=== PATIENT | female | born 1990 | race Caucasian/White ===

== ENCOUNTER → 2016-07-12 | Outpatient (CLI) | payer MEDICAID ==
--- NOTE | 2016-07-12 10:45 | CT ---
CT of the abdomen and pelvis without contrast. HISTORY: Pain TECHNIQUE: Axial CT images were obtained of the abdomen and pelvis without contrast. Coronal and sag ittal reconstructions obtained. FINDINGS: The lung bases are clear, no pleural effusion. Mild to moderate fatty infiltration of the liver. The spleen, adrenal glands, and pancreas appear un remarkable for noncontrast examination. Cholecystectomy. There is no bulky retroperitoneal lymphaden opathy. No abdominal ascites. There are no calcifications noted within the kidneys or along the courses of the ureters bilaterally . The large and small bowel are normal in caliber without evidence of obstruction. There is no bulky p elvic lymphadenopathy. No free fluid. No free air. The urinary bladder appears normal. There is a ti ny supraumbilical and a tiny umbilical fat-containing hernia. Mild symmetric bilateral sacroiliitis. IMPRESSION: 1. Mild to moderate fatty infiltration of the liver. 2. Tiny fat-containing periumbilical and umbilical hernias.
== END ==
LOC: MW.DI 08:25
PROVIDERS: ATTEND Student in an Organized Health Care Education/Training Program
DX: R10.9 Unspecified abdominal pain (principal); K76.0 Fatty (change of) liver, not elsewhere classified; K42.9 Umbilical hernia without obstruction or gangrene
CPT/HCPCS: 74176; 74176-26

== ENCOUNTER 2016-08-06 08:28 | Day surgery (SDC) | payer MEDICAID ==
[~2016-08-06 08:28] MED LIST: Lactated Ringers 1,000 ML IV SCH; Lidocaine 2% 5 ML SDV ONE; Midazolam 1 MG/ML 2 ML SDV ONE; Propofol 200 MG/20 ML SDV ONE; fentaNYL 100 MCG/2 ML SDV ONE
--- NOTE | 2016-08-06 09:01 | PCM.PREANE ---
Preanesthetic Assessment - Anesthesia/Transfusion/Family Hx Anesthesia History: Prior Anesthesia Without Reaction Other Type of Anesthesia Reaction Comment: Denies any known problem in past, hx : motion sickness Family History of Anesthesia Reaction: No Transfusion History: No Prior Transfusion(s) - Review of Systems General: No Symptoms Pulmonary: No Symptoms Cardiovascular: No Symptoms Gastrointestinal: Abdominal pain Neurological: No Symptoms Other: Reports: None - Physical Assessment Height: 1.65 m Weight: 87.09 kg ASA Class: 2 Mental Status: Alert & Oriented x3 Airway Class: Mallampati = 2 Dentition: Reports: Normal Dentition Thyro-Mental Finger Breadths: 3 Mouth Opening Finger Breadths: 2 ROM/Head Extension: Full Lungs: Clear to auscultation, Normal respiratory effort Cardiovascular: Regular Rate, Regular Rhythm - Lab Values: Laboratory Last Values Urine HCG, Qual NEGATIVE (NEGATIVE) 08/06/16 08:31 - Allergies Allergies/Adverse Reactions: Allergies Allergy/AdvReac Type Severity Reaction Status Date / Time Penicillins Allergy Hives Verified 08/01/16 12:35 Sulfa (Sulfonamide Allergy Hives Verified 06/28/15 18:48 Antibiotics) - Blood Blood Available: No - Anesthesia Plan Pre-Op Medication Ordered: None - Acknowledgements Anesthesia Type Planned: MAC Pt an Appropriate Candidate for the Planned Anesthesia: Yes Alternatives and Risks of Anesthesia Discussed w Pt/Guardian: Yes Pt/Guardian Understands and Agrees with Anesthesia Plan: Yes PreAnesthesia Questionnaire HEENT History: Reports: None Cardiovascular History: Reports: None Respiratory History: Reports: Other (see below) Other Respiratory History: asthma as a child Gastrointestinal History: Reports: Other (see below) Other Gastrointestinal History: umbilical hernia Genitourinary History: Reports: None 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 HX of colposcopy - SUBSTANCE USE Smoking Status *Q: Current Every Day Smoker (< 1ppd) Tobacco Use Within Last Twelve Months: Cigarettes Second Hand Smoke Exposure: Yes Days Per Week of Alcohol Use: 0 Number of Drinks Per Day: 0 Total Drinks Per Week: 0 Recreational Drug Use History: No - HOME MEDS Home Medications: Home Meds hydrOXYzine HCl [Atarax] 1 - 2 tab PO ASDIRECTED PRN 08/01/16 [History] - CURRENT (IN HOUSE) MEDS Current Meds: Current Medications Lactated Ringer's (Ringers, Lactated) 1,000 mls @ 125 mls/hr IV ASDIRECTED ZAID Discontinued Medications Fentanyl (Sublimaze) Confirm Administered Dose 100 mcg .ROUTE .STK-MED ONE Stop: 08/06/16 07:19 Lidocaine (Xylocaine-Mpf 2%) Confirm Administered Dose 5 ml .ROUTE .STK-MED ONE Stop: 08/06/16 07:18 Midazolam HCl (Versed 1 Mg/Ml) Confirm Administered Dose 2 mg .ROUTE .STK-MED ONE Stop: 08/06/16 07:19 Propofol (Diprivan 20 Ml) Confirm Administered Dose 400 mg .ROUTE .STK-MED ONE Stop: 08/06/16 07:19
--- NOTE | 2016-08-06 09:59 | PCM.OPNOTE ---
- General Post-Op/Procedure Note Date of Surgery/Procedure: 08/06/16 Operative Procedure(s): egd w bx Findings: see dict [id number] Pre Op Diagnosis: gerd Post-Op Diagnosis: same Anesthesia Technique: Moderate sedation Primary Surgeon: Med Mora Pathology: egd bx Complications: None Condition: Good
--- NOTE | 2016-08-06 10:06 | PCM.POSTAN ---
POST ANESTHESIA ASSESSMENT - MENTAL STATUS Mental Status: alert, oriented - RESPIRATORY Respiratory Status: respiratory rate WNL, airway patent, O2 saturation stable - CARDIOVASCULAR CV Status: pulse rate WNL, blood pressure stable - GASTROINTESTINAL GI Status: no symptoms - POST OP HYDRATION Hydration Status: adequate & stable - OBSERVATIONS Free Text/Narrative:: no anesthesia problems
--- NOTE | 2016-08-06 11:27 | OR ---
SURGEON: Med Mora MD DATE OF PROCEDURE: 08/06/2016 PREOPERATIVE DIAGNOSIS: Acid reflux. POSTOPERATIVE DIAGNOSIS: Acid reflux. PROCEDURE PERFORMED: Esophagogastroduodenoscopy with biopsy. DESCRIPTION OF PROCEDURE: EGD: The patient was taken to the endoscopy room, and with the RN CCU, Diprivan was administered. A well-lubricated EGD scope was gently inserted through the oropharynx, down the esophagus, passing through the gastroesophageal junction, into the stomach. The mucosa was examined upon the passage. Any etiology will be noted. Once in the stomach, we continued to advance to the distal antrum, passed through the pylorus into the second portion of the duodenum. Again, the mucosa was examined for any abnormality and etiology. The scope was then retrieved back to the stomach and then retroflexed to look at the fundus of the stomach. If a biopsy was indicated, we will biopsy the antrum, body, and gastroesophageal junction. The air will be sucked out while the scope is retrieved to reduce the patient's discomfort. The patient tolerated the procedure well. There were no intraoperative complications. Dr. Mora was present through the whole procedure. Prior to surgery, a time-out had been called, the patient identified, procedure identified and antibiotic administered. FINDINGS: 1. The patient is easily sedated with RN CCU and Diprivan. The patient is soundly snoring. 2. The patient's oropharynx and proximal esophagus is free of disease. No stricture, ulceration, inflammation. Distal esophagus at GE junction at 40 with salmon color change consistent with acid reflux. Stomach rugae is normal in appearance, and there is no bile, food particle in the stomach. Antrum is a little bit inflamed, but again no ulcer, no bleeding. Duodenum was grossly normal. The scope was retrieved back to the stomach and retroflexed to look at the fundus of stomach. The patient does not have hiatal hernia or any other etiology. Biopsy done at antrum, body, and GE junction at 40 and sucked out the air while scope pulling out. The patient's salmon color change is pre-moderate consistent with moderate amount of acid reflux. MARY / DEJAH /[id number]
[2016-08-06 12:48] VITALS: BP 111/69
== END 2016-08-06 10:22 | disposition home or self-care (01) ==
LOC: MW.SDS 08:28
PROVIDERS: ATTEND Surgery
PROC: 0DB48ZX Excision of Esophagogastric Junction, Via Natural or Artificial Opening Endoscopic, Diagnostic (ICD-10-PCS; principal; 2016-08-06)
PROC: 0DB68ZX Excision of Stomach, Via Natural or Artificial Opening Endoscopic, Diagnostic (ICD-10-PCS; 2016-08-06)
DX: K29.50 Unspecified chronic gastritis without bleeding (principal); K21.0 Gastro-esophageal reflux disease with esophagitis; F41.9 Anxiety disorder, unspecified; F32.9 Major depressive disorder, single episode, unspecified; F17.210 Nicotine dependence, cigarettes, uncomplicated; E66.9 Obesity, unspecified; Z88.0 Allergy status to penicillin; Z88.2 Allergy status to sulfonamides; Z90.49 Acquired absence of other specified parts of digestive tract; Z98.890 Other specified postprocedural states; Z68.31 Body mass index [BMI] 31.0-31.9, adult
CPT/HCPCS: 43239; 81025; J2250; J3010; J7120; 00740; 88305; 88312; J2704

== ENCOUNTER 2016-09-18 14:36 | Emergency (ER) | payer MEDICAID ==
[2016-09-18] MEDS ORDERED: diphenhydrAMINE 50 MG/ML SDV IM ONE (14:54)
[2016-09-18] MEDS ORDERED: methylPREDNISolone Sodium Succinate 40 MG/1 ML SDV IM ONE (14:55)
--- NOTE | 2016-09-18 15:42 | EDM.PDOC ---
ED HPI GENERAL MEDICAL PROBLEM - General Chief Complaint: Allergic Reaction Stated Complaint: ALLERGIC REACTION TO MEDS Time Seen by Provider: 09/18/16 14:48 Source of Information: Reports: Patient History Limitations: Reports: No Limitations - History of Present Illness INITIAL COMMENTS - FREE TEXT/NARRATIVE: HISTORY AND PHYSICAL: []25-Year-old female presenting with allergic reaction tongue swelling History of Present Illness: [Patient was started yesterday on Lexapro. Noticed that her tongue was swelling at about noon and has gradually worsened] Review of Systems: As per history of present illness and below otherwise all systems reviewed and negative. Past medical history: As per history of present illness and as reviewed below otherwise noncontributory. Surgical history: As per history of present illness and as reviewed below otherwise noncontributory. Social history: No reported history of drug or alcohol abuse. Family history: As per history of present illness and as reviewed below otherwise noncontributory. Physical exam: Alert and oriented female who is able to speak. HEENT: Atraumatic, normocehpalic, pupils reactive, negative for conjunctival pallor or scleral icterus, mucous membranes moist, throat clear, neck supple, nontender, trachea midline. Tongue slightly edematous Lungs: Clear to auscultation, breath sounds equal bilaterally, chest non tender. Heart: S1S2, regular, negative for clicks, rubs, or JVD. Abdomen: Soft, nondistended, nontender. Negative for masses or hepatossplenmegaly. Negative for costovertebral tenderness. Pelvis: Stable nontender. Genitourinary: Deferred. Rectal: Deferred Extremities: Atraumatic, negative for cords or calf pain. Neurovascular unremarkable. Neuro: Awake, alert, oriented. Cranial nerves II through XII unremarkable. Cerebellum unremarkable. Motor and sensory unremarkable throughout. Exam nonfocal. Patient has tolerated procedures well swelling is noted her speech pattern has improved Good experience change noted to auscultation of the chest Diagnostics: [] Therapeutics: [] Solu-Medrol 40mg IM/ Benadryl 50 mg IM Impression: [Allergic reaction] Plan: [Home Benadryl by mouth 50 mg every 4 hours today Zyrtec 10 mg daily for one week Followup with primary care provider If worsening symptoms tonight return for evaluation ] Definitive disposition and diagnosis as appropriate pending reevaluation and review of above. Onset: Today, Sudden Duration: Hour(s):, Getting Worse Location: Reports: Other (tongue) Oral/Mouth Pain Score (Numeric/FACES): 5 - Related Data Allergies Allergy/AdvReac Type Severity Reaction Status Date / Time Penicillins Allergy Hives Verified 08/01/16 12:35 Sulfa (Sulfonamide Allergy Hives Verified 06/28/15 18:48 Antibiotics) Home Meds: Home Meds hydrOXYzine HCl [Atarax] 1 - 2 tab PO ASDIRECTED PRN 08/01/16 [History] Past Medical History - Past Health History Medical/Surgical History: Denies Medical/Surgical History HEENT History: Reports: None Cardiovascular History: Reports: None Respiratory History: Reports: Other (See Below) Other Respiratory History: asthma as a child Gastrointestinal History: Reports: Other (See Below) Other Gastrointestinal History: umbilical hernia Genitourinary History: Reports: None 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: Musculoskeletal History: Reports: None Neurological History: Reports: Migraines Psychiatric History: Reports: Anxiety, Depression Endocrine/Metabolic History: Reports: Obesity/BMI 30+ Hematologic History: Reports: None Immunologic History: Reports: None Oncologic (Cancer) History: Reports: None Dermatologic History: Reports: None - Past Surgical History Head Surgeries/Procedures: Reports: None Female Surgical History: Reports: LEEP, Other (See Below) Social & Family History - Family History Family Medical History: Noncontributory - Tobacco Use Smoking Status *Q: Current Every Day Smoker Years of Tobacco use: 8 Packs/Tins Daily: 1 Used Tobacco, but Quit: No Month Tobacco Last Used: a year ago Second Hand Smoke Exposure: No - Caffeine Use Caffeine Use: Reports: None - Alcohol Use Days Per Week of Alcohol Use: 0 Number of Drinks Per Day: 0 Total Drinks Per Week: 0 - Recreational Drug Use Recreational Drug Use: No Drug Use in Last 12 Months: No ED ROS ALLERGIC REACTION - Review of Systems Review Of Systems: ROS reveals no pertinent complaints other than HPI. ED EXAM GENERAL NO PERIP PULSE - Physical Exam Exam: See Below Course - Vital Signs Last Recorded V/S: Last Vital Signs Temp 36.2 C 09/18/16 14:47 Pulse 84 09/18/16 14:47 Resp 15 09/18/16 14:47 BP 126/78 09/18/16 14:47 Pulse Ox 97 09/18/16 14:47 - Orders/Labs/Meds Meds: Medications Discontinued Medications Generic Name Dose Route Start Last Admin Trade Name Lisbeth PRN Reason Stop Dose Admin Diphenhydramine HCl 50 mg 09/18/16 14:54 09/18/16 15:06 Benadryl IM 09/18/16 14:55 50 mg ONETIME ONE Administration Methylprednisolone Sodium Succinate 40 mg 09/18/16 14:55 09/18/16 15:06 Solu-Medrol IM 09/18/16 14:56 40 mg ONETIME ONE Administration Departure - Departure Time of Disposition: 15:41 Disposition: Home, Self-Care 01 Condition: good Clinical Impression: Allergic reaction caused by a drug Qualifiers: Encounter type: initial encounter Qualified Code(s): T78.40XA - Allergy, unspecified, initial encounter - Discharge Information Additional Instructions: The following information is given to patients seen in the emergency department who are being discharged to home. This information is to outline your options for follow-up care. We provide all patients seen in our emergency department with a follow-up referral. The need for follow-up, as well as the timing and circumstances, are variable depending upon the specifics of your emergency department visit. If you don't have a primary care physician on staff, we will provide you with a referral. We always advise you to contact your personal physician following an emergency department visit to inform them of the circumstance of the visit and for follow-up with them and/or the need for any referrals to a consulting specialist. The emergency department will also refer you to a specialist when appropriate. This referral assures that you have the opportunity for followup care with a specialist. All of these measure are taken in an effort to provide you with optimal care, which includes your followup. Under all circumstances we always encourage you to contact your private physician who remains a resource for coordinating your care. When calling for followup care, please make the office aware that this follow-up is from your recent emergency room visit. If for any reason you are refused follow-up, please contact the [facility] emergency department at and asked to speak to the emergency department charge nurse. Followup with primary care provider Continue with by mouth Benadryl [id number] 50 mg every 4 hours today Zyrtec 10 mg daily x1 week Any worsening of symptoms today return immediately for reevaluation
[2016-09-18 15:49] VITALS: BP 118/70
== END 2016-09-18 15:47 | disposition home or self-care (01) ==
LOC: MW.ED 14:36
DX: T43.225A Adverse effect of selective serotonin reuptake inhibitors, initial encounter (principal); F41.9 Anxiety disorder, unspecified; F32.9 Major depressive disorder, single episode, unspecified; E66.9 Obesity, unspecified; Z98.890 Other specified postprocedural states; F17.210 Nicotine dependence, cigarettes, uncomplicated; Z88.0 Allergy status to penicillin; Z88.2 Allergy status to sulfonamides
CPT/HCPCS: 96372; 99283; J1200; J2920

== ENCOUNTER 2016-09-19 18:47 | Emergency (ER) | payer MEDICAID ==
--- NOTE | 2016-09-19 19:04 | EDM.PDOC ---
<Montserrat Kwan - Last Filed: 09/19/16 21:30> ED HPI GENERAL MEDICAL PROBLEM - General Stated Complaint: PT HAS SORE THROAT Time Seen by Provider: 09/19/16 19:59 Source of Information: Reports: Patient History Limitations: Reports: No Limitations - History of Present Illness INITIAL COMMENTS - FREE TEXT/NARRATIVE: HISTORY AND PHYSICAL: []25-year-old female who presents to the emergency room with worsening of allergic reaction, patient was seen by this provider yesterday for allergic reaction of tongue swelling. History of Present Illness: [Patient was given a prescription for Lexapro and after 1 dose noticed difficulty with swallowing and tongue swelling] Review of Systems: As per history of present illness and below otherwise all systems reviewed and negative. Past medical history: As per history of present illness and as reviewed below otherwise noncontributory. Surgical history: As per history of present illness and as reviewed below otherwise noncontributory. Social history: No reported history of drug or alcohol abuse. Family history: As per history of present illness and as reviewed below otherwise noncontributory. Physical exam: Alert and oriented female who is speaking quite well. No difficulty with breathing HEENT: Atraumatic, normocehpalic, pupils reactive, negative for conjunctival pallor or scleral icterus, mucous membranes moist, throat clear, neck supple, nontender, trachea midline. Tongue does not look to be edematous, phRYNX is erythematous, mild cervical adenopathy Lungs: Clear to auscultation, breath sounds equal bilaterally, chest non tender. Heart: S1S2, regular, negative for clicks, rubs, or JVD. Abdomen: Soft, nondistended, nontender. Negative for masses or hepatossplenmegaly. Negative for costovertebral tenderness. Pelvis: Stable nontender. Genitourinary: Deferred. Rectal: Deferred Extremities: Atraumatic, negative for cords or calf pain. Neurovascular unremarkable. Neuro: Awake, alert, oriented. Cranial nerves II through XII unremarkable. Cerebellum unremarkable. Motor and sensory unremarkable throughout. Exam nonfocal. Discussed case with Dr. Domingo Amos who was kindly agreeable to see this patient/reassurances had been given to the patient. Patient eloped from the emergency room without results of negative strep. And to continue current medications Diagnostics: []Rapid strep test negative Therapeutics: [Prednisolone syrup 30 mL by mouth] Impression: [Mild pharyngitis Recovering from allergic reaction Worried well Plan: [] Definitive disposition and diagnosis as appropriate pending reevaluation and review of above. - Related Data Allergies Allergy/AdvReac Type Severity Reaction Status Date / Time Penicillins Allergy Hives Verified 09/19/16 19:09 Sulfa (Sulfonamide Allergy Hives Verified 09/19/16 19:09 Antibiotics) Home Meds: Home Meds . [No Known Home Meds] 09/19/16 [History] ED ROS GENERAL - Review of Systems Review Of Systems: ROS reveals no pertinent complaints other than HPI. ED EXAM, GENERAL - Physical Exam Exam: See Below (See dictation) Course - Vital Signs Last Recorded V/S: Last Vital Signs Temp 36.6 C 09/19/16 19:07 Pulse 68 09/19/16 19:07 Resp 18 09/19/16 19:07 BP 135/94 H 09/19/16 19:07 Pulse Ox 95 09/19/16 19:07 - Orders/Labs/Meds Meds: Medications Discontinued Medications Generic Name Dose Route Start Last Admin Trade Name Lisbeth PRN Reason Stop Dose Admin Prednisolone 30 mg 09/19/16 20:07 09/19/16 20:14 Orapred 15 Mg/5ml Soln PO 09/19/16 20:08 30 mg ONETIME ONE Administration Departure - Departure Time of Disposition: 21:36 Disposition: Eloped 07 Condition: Good Clinical Impression: Worried well - Discharge Information Referrals: PCP,None [Primary Care Provider] - Forms: ED Department Discharge <Domingo Amos - Last Filed: 09/25/16 07:11> ED HPI GENERAL MEDICAL PROBLEM - General Source of Information: Reports: Patient Past Medical History - Past Health History Medical/Surgical History: Denies Medical/Surgical History HEENT History: Reports: None Cardiovascular History: Reports: None Respiratory History: Reports: Other (See Below) Other Respiratory History: asthma as a child Gastrointestinal History: Reports: Other (See Below) Other Gastrointestinal History: umbilical hernia Genitourinary History: Reports: 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: Musculoskeletal History: Reports: None Neurological History: Reports: Migraines Psychiatric History: Reports: Anxiety, Depression Endocrine/Metabolic History: Reports: Obesity/BMI 30+ Hematologic History: Reports: None Immunologic History: Reports: None Oncologic (Cancer) History: Reports: None Dermatologic History: Reports: None - Past Surgical History Head Surgeries/Procedures: Reports: None Female Surgical History: Reports: LEEP, Other (See Below) Social & Family History - Family History Family Medical History: Noncontributory - Tobacco Use Smoking Status *Q: Current Every Day Smoker Years of Tobacco use: 8 Packs/Tins Daily: 1 Used Tobacco, but Quit: No Month Tobacco Last Used: a year ago Second Hand Smoke Exposure: No - Caffeine Use Caffeine Use: Reports: None - Alcohol Use Days Per Week of Alcohol Use: 0 Number of Drinks Per Day: 0 Total Drinks Per Week: 0 - Recreational Drug Use Recreational Drug Use: No Drug Use in Last 12 Months: No ED ROS GENERAL - Review of Systems Review Of Systems: See Below (History of present illness) ED EXAM, GENERAL - Physical Exam Exam: See Below (History of present illness) Course - Vital Signs Last Recorded V/S: Last Vital Signs Temp 36.6 C 09/19/16 19:07 Pulse 68 09/19/16 19:07 Resp 18 09/19/16 19:07 BP 135/94 H 09/19/16 19:07 Pulse Ox 95 09/19/16 19:07 - Orders/Labs/Meds Meds: Medications Discontinued Medications Generic Name Dose Route Start Last Admin Trade Name Lisbeth PRAshlyn Reason Stop Dose Admin Prednisolone 30 mg 09/19/16 20:07 09/19/16 20:14 Orapred 15 Mg/5ml Soln PO 09/19/16 20:08 30 mg ONETIME ONE Administration
[2016-09-19 19:09] VITALS: BP 135/94
[2016-09-19] MEDS ORDERED: prednisoLONE Soln 15 MG/5 ML UD Cup PO ONE (20:07)
== END 2016-09-19 21:00 | disposition left against medical advice (07) ==
LOC: MW.ED 18:47
DX: J02.9 Acute pharyngitis, unspecified (principal); F32.9 Major depressive disorder, single episode, unspecified; F17.210 Nicotine dependence, cigarettes, uncomplicated; E66.9 Obesity, unspecified; Z68.31 Body mass index [BMI] 31.0-31.9, adult; Z71.1 Person with feared health complaint in whom no diagnosis is made; Z88.0 Allergy status to penicillin; Z88.2 Allergy status to sulfonamides
CPT/HCPCS: 87081; 87880; 99283; A9270; 99282

== ENCOUNTER 2016-11-08 13:49 | Emergency (ER) | payer MEDICAID ==
[2016-11-08 14:28] VITALS: BP 137/92
[2016-11-08] MEDS ORDERED: Ondansetron 4 MG Tab.DIS PO ONE (15:04)
--- NOTE | 2016-11-08 15:09 | EDM.PDOC ---
ED HPI GENERAL MEDICAL PROBLEM - General Chief Complaint: General Stated Complaint: VOMITING Time Seen by Provider: 11/08/16 14:45 Source of Information: Reports: Patient History Limitations: Reports: No Limitations - History of Present Illness INITIAL COMMENTS - FREE TEXT/NARRATIVE: HISTORY AND PHYSICAL: History of present illness: [Patient comes to the emergency room complaining of cough, head congestion for episodes of vomiting and some loose stools today. She is blowing clear nasal discharge out of her nose. The apartments next door to hers has been having construction completed for the past week. Today is the last day of work on his apartment and patient is noticing a strong smell of chemicals. She is worried that being exposed may be causing her symptoms. Her 2 young children are also having dry coughs and runny nose. Mom verified with apartment complex that polyurethane is being used on the floors. Patient has had no fever or chills. No sore throat or earaches. No chest pain shortness of breath or difficulty breathing. Continues to complain of nausea Cough is nonproductive for sputum. No abdominal pain associated with the vomiting. No blood in her emesis or stools. She is urinating well. Has no other complaints or concerns.] Review of systems: As per history of present illness and below otherwise all systems reviewed and negative. Past medical history: As per history of present illness and as reviewed below otherwise noncontributory. Surgical history: As per history of present illness and as reviewed below otherwise noncontributory. Social history: No reported history of drug or alcohol abuse. Family history: As per history of present illness and as reviewed below otherwise noncontributory. Physical exam: HEENT: Atraumatic, normocephalic. TMs are pearly chinchilla and without erythema or effusion. Oral mucous membranes are pink and moist tonsillar swelling erythema or exudate. Neck is supple and without lymphadenopathy. Lungs: Clear to auscultation, breath sounds equal bilaterally. No wheezing, crackles or rales. Heart: S1S2, regular rate and rhythm., Abdomen: Bowel sounds are normoactive throughout. Abdomen is Soft, nondistended , nontender. Negative for masses guarding or rebound. Negative for costovertebral tenderness. Pelvis: Stable nontender. Genitourinary: Deferred. Rectal: Deferred. Extremities: Atraumatic, negative for cords or calf pain. No cyanosis or edema to feet or lower legs. Neurovascular unremarkable. Neuro: Awake, alert, oriented. Motor and sensory unremarkable throughout. Exam nonfocal. Impression: [Nausea and vomiting] Plan: [Reviewed with patient that her symptoms are likely viral in nature. Recommend push fluids, avoid spicy greasy foods until feeling improved. She is given Rx written for Zofran ODT 4 mg #10 sig one by mouth every 6-8 hours as needed for nausea 0 refills. Recommend she follow-up with her PCP early next week. Return to ER as needed as discussed. Patient states that she and her children will go stay with her mom fatmata until construction was completed in the apartment next door.] Definitive disposition and diagnosis as appropriate pending reevaluation and review of above. - Related Data Allergies Allergy/AdvReac Type Severity Reaction Status Date / Time Penicillins Allergy Hives Verified 11/08/16 14:25 Sulfa (Sulfonamide Allergy Hives Verified 11/08/16 14:25 Antibiotics) Home Meds: Home Meds . [No Known Home Meds] 09/19/16 [History] Past Medical History - Past Health History Medical/Surgical History: Denies Medical/Surgical History HEENT History: Reports: None Cardiovascular History: Reports: None Respiratory History: Reports: Other (See Below) Other Respiratory History: asthma as a child Gastrointestinal History: Reports: Other (See Below) Other Gastrointestinal History: umbilical hernia Genitourinary History: Reports: None CLINICIAN ONCOLOGY History: Reports: Musculoskeletal History: Reports: None Neurological History: Reports: Migraines Psychiatric History: Reports: Anxiety, Depression Endocrine/Metabolic History: Reports: Obesity/BMI 30+ Hematologic History: Reports: None Immunologic History: Reports: None Oncologic (Cancer) History: Reports: None Dermatologic History: Reports: None - Infectious Disease History Infectious Disease History: Reports: Chicken Pox - Past Surgical History Head Surgeries/Procedures: Reports: None Female Surgical History: Reports: LEEP, Other (See Below) Social & Family History - Family History Family Medical History: Noncontributory - Tobacco Use Smoking Status *Q: Current Every Day Smoker Years of Tobacco use: 5 Packs/Tins Daily: 1 Used Tobacco, but Quit: No Month Tobacco Last Used: a year ago Second Hand Smoke Exposure: No - Caffeine Use Caffeine Use: Reports: None - Alcohol Use Days Per Week of Alcohol Use: 0 Number of Drinks Per Day: 0 Total Drinks Per Week: 0 - Recreational Drug Use Recreational Drug Use: No Drug Use in Last 12 Months: No ED ROS GENERAL - Review of Systems Review Of Systems: ROS reveals no pertinent complaints other than HPI. ED EXAM, GENERAL - Physical Exam Exam: See Below Course - Vital Signs Last Recorded V/S: Last Vital Signs Temp 97 F 11/08/16 13:49 Pulse 80 11/08/16 13:49 Resp 18 11/08/16 13:49 BP 137/92 H 11/08/16 13:49 Pulse Ox 97 11/08/16 13:49 - Orders/Labs/Meds Meds: Medications Discontinued Medications Generic Name Dose Route Start Last Admin Trade Name Freq PRN Reason Stop Dose Admin Ondansetron HCl 4 mg 11/08/16 15:04 11/08/16 17:28 Zofran Odt PO 11/08/16 15:05 Not Given ONETIME ONE Departure - Departure Time of Disposition: 15:10 Disposition: Home, Self-Care 01 Condition: Good Clinical Impression: Nausea & vomiting Qualifiers: Vomiting type: unspecified Vomiting Intractability: non-intractable Qualified Code(s): R11.2 - Nausea with vomiting, unspecified - Discharge Information Instructions: Nausea and Vomiting, Adult Referrals: Darrick Gaviria MD [Primary Care Provider] - Forms: ED Department Discharge Additional Instructions: The following information is given to patients seen in the emergency department who are being discharged to home. This information is to outline your options for follow-up care. We provide all patients seen in our emergency department with a follow-up referral. The need for follow-up, as well as the timing and circumstances, are variable depending upon the specifics of your emergency department visit. If you don't have a primary care physician on staff, we will provide you with a referral. We always advise you to contact your personal physician following an emergency department visit to inform them of the circumstance of the visit and for follow-up with them and/or the need for any referrals to a consulting specialist. The emergency department will also refer you to a specialist when appropriate. This referral assures that you have the opportunity for follow-up care with a specialist. All of these measure are taken in an effort to provide you with optimal care, which includes your follow-up. Under all circumstances we always encourage you to contact your private physician who remains a resource for coordinating your care. When calling for follow-up care, please make the office aware that this follow-up is from your recent emergency room visit. If for any reason you are refused follow-up, please contact the [facility] emergency department at and asked to speak to the emergency department charge nurse. [facility] [address] [place] [id number] Follow-up with your primary care provider at the clinic listed above in 48-72 hours. Clear liquids until feeling free from nausea and vomiting. Then gradually increase your diet. Return to ER as needed as discussed.
== END 2016-11-08 15:21 | disposition home or self-care (01) ==
LOC: MW.ED 13:49
DX: R11.2 Nausea with vomiting, unspecified (principal); E66.9 Obesity, unspecified; Z88.0 Allergy status to penicillin; Z88.2 Allergy status to sulfonamides
CPT/HCPCS: 99282; 99283

== ENCOUNTER 2017-05-14 19:17 | Emergency (ER) | payer MEDICAID ==
--- NOTE | 2017-05-14 19:31 | EDM.PDOC ---
ED HPI GENERAL MEDICAL PROBLEM - General Chief Complaint: Respiratory Problem Stated Complaint: LOWER BACK PAIN/UNABLE TO EAT Time Seen by Provider: 05/14/17 19:29 Source of Information: Reports: Patient History Limitations: Reports: No Limitations - History of Present Illness INITIAL COMMENTS - FREE TEXT/NARRATIVE: HISTORY AND PHYSICAL: []26-year-old female presenting with low back pain also sick coughing and vomiting for several days History of Present Illness: []Patient says she's been ill for the last 4 days with coughing chills flulike symptoms Review of Systems: As per history of present illness and below otherwise all systems reviewed and negative. Past medical history: As per history of present illness and as reviewed below otherwise noncontributory. Surgical history: As per history of present illness and as reviewed below otherwise noncontributory. Social history: No reported history of drug or alcohol abuse. Family history: As per history of present illness and as reviewed below otherwise noncontributory. Physical exam: Alert and oriented female who does not look acutely ill answering questions in full sentences without any shortness of breath HEENT: Atraumatic, normocehpalic, pupils reactive, negative for conjunctival pallor or scleral icterus, mucous membranes moist, throat red, neck supple, nontender, trachea midline. Tympanic membranes are dull, no cervical adenopathy palpable Lungs: Clear to auscultation, breath sounds equal bilaterally, chest non tender. Shallow breath sounds Heart: S1S2, regular, negative for clicks, rubs, or JVD. Abdomen: Soft, nondistended, nontender. Negative for masses or hepatossplenmegaly. Positive for costovertebral tenderness. Pelvis: Stable nontender. Genitourinary: Deferred. Patient is voiding without any difficulty Rectal: Deferred Extremities: Atraumatic, negative for cords or calf pain. Neurovascular unremarkable. Neuro: Awake, alert, oriented. Cranial nerves II through XII unremarkable. Cerebellum unremarkable. Motor and sensory unremarkable throughout. Exam nonfocal. Diagnostics: [Rapid strep influenza UA] all are negative for any infection Therapeutics: [] Impression: [Cystitis] Plan: []Ciprofloxacin 500 twice a day Sips of fluid every 20 minutes to keep hydrated while awake Zofran for nausea prn Definitive disposition and diagnosis as appropriate pending reevaluation and review of above. Onset: Sudden Duration: Day(s): (4), Getting Worse Location: Reports: Head, Back lower back Pain Score (Numeric/FACES): 6 - Related Data Allergies Allergy/AdvReac Type Severity Reaction Status Date / Time Penicillins Allergy Hives Verified 05/14/17 19:20 Sulfa (Sulfonamide Allergy Hives Verified 05/14/17 19:20 Antibiotics) Home Meds: Home Meds Ciprofloxacin [Cipro XR] 500 mg PO BID #10 tab.er 05/14/17 [Rx] Ondansetron [Zofran ODT] 4 mg PO Q6H PRN #12 tab.dis 05/14/17 [Rx] Past Medical History - Past Health History Medical/Surgical History: Denies Medical/Surgical History HEENT History: Reports: None Cardiovascular History: Reports: None Respiratory History: Reports: Other (See Below) Other Respiratory History: asthma as a child Gastrointestinal History: Reports: Other (See Below) Other Gastrointestinal History: Umbilical hernia Genitourinary History: Reports: None [employer] C[employer] WORKER History: Reports: Musculoskeletal History: Reports: None Neurological History: Reports: Migraines Psychiatric History: Reports: Anxiety, Depression Endocrine/Metabolic History: Reports: Obesity/BMI 30+ Hematologic History: Reports: None Immunologic History: Reports: None Oncologic (Cancer) History: Reports: None Dermatologic History: Reports: None - Infectious Disease History Infectious Disease History: Reports: None - Past Surgical History Head Surgeries/Procedures: Reports: None GI Surgical History: Reports: Appendectomy, Cholecystectomy Female Surgical History: Reports: LEEP Social & Family History - Family History Family Medical History: Noncontributory - Tobacco Use Smoking Status *Q: Current Every Day Smoker Years of Tobacco use: 10 Packs/Tins Daily: 1 Used Tobacco, but Quit: No Month Tobacco Last Used: a year ago Second Hand Smoke Exposure: No - Caffeine Use Caffeine Use: Reports: None - Alcohol Use Days Per Week of Alcohol Use: 0 Number of Drinks Per Day: 0 Total Drinks Per Week: 0 - Recreational Drug Use Recreational Drug Use: No Drug Use in Last 12 Months: No ED ROS GENERAL - Review of Systems Review Of Systems: ROS reveals no pertinent complaints other than HPI. ED EXAM, GENERAL - Physical Exam Exam: See Below (Dictation) Course - Vital Signs Last Recorded V/S: Last Vital Signs Temp 36.1 C 05/14/17 19:20 Pulse 90 05/14/17 19:20 Resp 18 05/14/17 19:20 BP 174/93 H 05/14/17 19:20 Pulse Ox 97 05/14/17 19:20 - Orders/Labs/Meds Orders: Active Orders 24 hr Category Date Time Status CULTURE STREP A CONFIRMATION [RM] Stat Lab 05/14/17 19:25 Results STREP SCRN A RAPID W CULT CONF [] Stat Lab 05/14/17 19:25 Results Labs: Laboratory Tests 05/14/17 Range/Units 19:28 Urine Color YELLOW Urine Appearance CLEAR Urine pH 6.0 (5.0-8.0) Ur Specific [place] 1.025 (1.001-1.035) Urine Protein NEGATIVE (NEGATIVE) mg/dL Urine Glucose (UA) NEGATIVE (NEGATIVE) mg/dL Urine Ketones NEGATIVE (NEGATIVE) mg/dL Urine Occult Blood SMALL H (NEGATIVE) Urine Nitrite NEGATIVE (NEGATIVE) Urine Bilirubin NEGATIVE (NEGATIVE) Urine Urobilinogen 0.2 (<2.0) EU/dL Ur Leukocyte Esterase NEGATIVE (NEGATIVE) Urine RBC 0-1 (0-2/HPF) Urine WBC 1-3 (0-5/HPF) Ur Epithelial Cells FEW (NONE-FEW) Urine Bacteria RARE (NEGATIVE) Urine Mucus HEAVY (NONE-MOD) Departure - Departure Time of Disposition: 20:35 Disposition: Home, Self-Care 01 Condition: Good Clinical Impression: Cystitis - Discharge Information Prescriptions: Ciprofloxacin [Cipro XR] 500 mg PO BID #10 tab.er Ondansetron [Zofran ODT] 4 mg PO Q6H PRN #12 tab.dis PRN Reason: Nausea Referrals: Darrick Gaviria MD [Primary Care Provider] - Forms: ED Department Discharge Additional Instructions: The following information is given to patients seen in the emergency department who are being discharged to home. This information is to outline your options for follow-up care. We provide all patients seen in our emergency department with a follow-up referral. The need for follow-up, as well as the timing and circumstances, are variable depending upon the specifics of your emergency department visit. If you don't have a primary care physician on staff, we will provide you with a referral. We always advise you to contact your personal physician following an emergency department visit to inform them of the circumstance of the visit and for follow-up with them and/or the need for any referrals to a consulting specialist. The emergency department will also refer you to a specialist when appropriate. This referral assures that you have the opportunity for followup care with a specialist. All of these measure are taken in an effort to provide you with optimal care, which includes your followup. Under all circumstances we always encourage you to contact your private physician who remains a resource for coordinating your care. When calling for followup care, please make the office aware that this follow-up is from your recent emergency room visit. If for any reason you are refused follow-up, please contact the [facility] emergency department at and asked to speak to the emergency department charge nurse. You had exquisite tenderness in the kidney area on examination a prescription of ciprofloxacin twice daily 5 days For your nausea Zofran has been ordered 4 mg ODT and sent to your pharmacy - My Orders Last 24 Hours: My Active Orders 05/14/17 19:25 CULTURE STREP A CONFIRMATION [RM] Stat STREP SCRN A RAPID W CULT CONF [RM] Stat - Assessment/Plan Last 24 Hours: My Active Orders 05/14/17 19:25 CULTURE STREP A CONFIRMATION [RM] Stat STREP SCRN A RAPID W CULT CONF [RM] Stat
[2017-05-14 20:59] VITALS: BP 122/81
== END 2017-05-14 20:51 | disposition home or self-care (01) ==
LOC: MW.ED 19:17
DX: N30.90 Cystitis, unspecified without hematuria (principal); F17.210 Nicotine dependence, cigarettes, uncomplicated; Z88.0 Allergy status to penicillin; Z88.2 Allergy status to sulfonamides
CPT/HCPCS: 81001; 87081; 87804; 87880; 99283

== ENCOUNTER 2017-08-29 08:48 | Day surgery (SDC) | payer MEDICAID ==
[~2017-08-29 08:48] MED LIST changes: +Clindamycin Phosphate in D5W 50 ML ONE; +Clindamycin Phosphate in D5W 600 MG in Premix Bag 50 BAG IV ONE; +Ondansetron 4 MG/2 ML SDV ONE; -fentaNYL 100 MCG/2 ML SDV ONE; +fentaNYL 250 MCG/5 ML SDV ONE
[2017-08-29] MEDS ORDERED: Octyl 2-Cyanoacrylate 1 Tube ONE (09:24)
[2017-08-29] MEDS ORDERED: Bupivacaine 25%/EPINEPHrine/PF 30 ML ONE (09:24)
--- NOTE | 2017-08-29 09:24 | PCM.PREANE ---
Preanesthetic Assessment - Anesthesia/Transfusion/Family Hx Anesthesia History: Prior Anesthesia Reaction Type of Anesthesia Reaction: Excessive Nausea/Vomiting Other Type of Anesthesia Reaction Comment: Denies any known problem in past, hx : motion sickness Family History of Anesthesia Reaction: No Transfusion History: No Prior Transfusion(s) - Review of Systems General: No Symptoms Pulmonary: No Symptoms Cardiovascular: No Symptoms Gastrointestinal: No Symptoms Neurological: No Symptoms Other: Reports: None - Physical Assessment NPO Status Date: 08/28/17 Height: 1.65 m Weight: 88.451 kg ASA Class: 2 Mental Status: Alert & Oriented x3 Airway Class: Mallampati = 1 Dentition: Reports: Normal Dentition ROM/Head Extension: Full Lungs: Clear to Auscultation, Normal Respiratory Effort Cardiovascular: Regular Rate, Regular Rhythm - Lab Values: Laboratory Last Values Urine HCG, Qual NEGATIVE (NEGATIVE) 08/29/17 08:50 - Allergies Allergies/Adverse Reactions: Allergies Allergy/AdvReac Type Severity Reaction Status Date / Time escitalopram [From Lexapro] Allergy Anaphylactic Verified 08/25/17 14:29 Shock Penicillins Allergy Hives Verified 08/25/17 14:29 Sulfa (Sulfonamide Allergy Hives Verified 08/25/17 14:29 Antibiotics) - Acknowledgements Anesthesia Type Planned: General Anesthesia (PMH: umbilical incisional hernia s /p lap bello. smoker, asthma (inactive), migraine, ) Pt an Appropriate Candidate for the Planned Anesthesia: Yes Alternatives and Risks of Anesthesia Discussed w Pt/Guardian: Yes Pt/Guardian Understands and Agrees with Anesthesia Plan: Yes Additional Comments: PMH: umbilical incisional hernia s/p lap bello, smoker, asthma(inactive), migraine PLAN: GA-LMA or GET if surgeon prefers. PreAnesthesia Questionnaire - Past Health History Medical/Surgical History: Denies Medical/Surgical History HEENT History: Reports: None Cardiovascular History: Reports: None Respiratory History: Reports: Asthma, Other (See Below) Other Respiratory History: asthma as a child Gastrointestinal History: Reports: GERD Genitourinary History: Reports: Other (See Below) Other Genitourinary History: hx kidney failure in the past due to taking alcohol and pills "suicide attempt" [employer] History: Reports: Musculoskeletal History: Reports: None Neurological History: Reports: Migraines Psychiatric History: Reports: Anxiety, Depression, Suicide Attempt Endocrine/Metabolic History: Reports: Obesity/BMI 30+ Hematologic History: Reports: None Immunologic History: Reports: None Oncologic (Cancer) History: Reports: None Dermatologic History: Reports: None - Infectious Disease History Infectious Disease History: Reports: None - Past Surgical History Head Surgeries/Procedures: Reports: None GI Surgical History: Reports: Appendectomy, Cholecystectomy, EGD Female Surgical History: Reports: LEEP Other Female Surgeries/Procedures: 2014 and Feb 2016. HX of colposcopy - SUBSTANCE USE Smoking Status *Q: Current Every Day Smoker Tobacco Use Within Last Twelve Months: Cigarettes Second Hand Smoke Exposure: No Days Per Week of Alcohol Use: 0 Number of Drinks Per Day: 0 Total Drinks Per Week: 0 Recreational Drug Use History: No - HOME MEDS Home Medications: Home Meds . [No Known Home Meds] 08/25/17 [History] - CURRENT (IN HOUSE) MEDS Current Meds: Current Medications Lactated Ringer's (Ringers, Lactated) 1,000 mls @ 125 mls/hr IV ASDIRECTED ZAID Discontinued Medications Fentanyl (Sublimaze) Confirm Administered Dose 250 mcg .ROUTE .STK-MED ONE Stop: 08/29/17 08:46 Clindamycin Phosphate 600 mg/ (Premix) 50 mls @ 100 mls/hr IV ONETIME ONE Stop: 08/29/17 05:29 Clindamycin Phosphate (Cleocin In D5w) Confirm Administered Dose 50 mls @ as directed .ROUTE .STK-MED ONE Stop: 08/29/17 08:09 Lidocaine (Xylocaine-Mpf 2%) Confirm Administered Dose 5 ml .ROUTE .STK-MED ONE Stop: 08/29/17 08:46 Midazolam HCl (Versed 1 Mg/Ml) Confirm Administered Dose 2 mg .ROUTE .STK-MED ONE Stop: 08/29/17 08:46 Ondansetron HCl (Zofran) Confirm Administered Dose 4 mg .ROUTE .STK-MED ONE Stop: 08/29/17 08:46 Propofol (Diprivan 20 Ml) Confirm Administered Dose 200 mg .ROUTE .STK-MED ONE Stop: 08/29/17 08:46
[2017-08-29] MEDS ORDERED: Dexamethasone 4 MG/ML 5 ML MDV ONE (09:46)
[2017-08-29] MEDS ORDERED: diphenhydrAMINE 50 MG/ML SDV ONE (09:46)
[2017-08-29] MEDS ORDERED: fentaNYL 100 MCG/2 ML SDV IVPUSH PRN (10:16)
--- NOTE | 2017-08-29 10:32 | PCM.OPNOTE ---
- General Post-Op/Procedure Note Date of Surgery/Procedure: 08/29/17 Operative Procedure(s): incisional hernia repair Findings: 8 mm fascia defect, repair primary, no mesh used; [id number] Pre Op Diagnosis: umb hernia Post-Op Diagnosis: Same Anesthesia Technique: Moderate Sedation Primary Surgeon: Med Mora Complications: None Condition: Good
--- NOTE | 2017-08-29 11:14 | PCM.POSTAN ---
POST ANESTHESIA ASSESSMENT - MENTAL STATUS Mental Status: Alert, Oriented - RESPIRATORY Respiratory Status: Respiratory Rate WNL, Airway Patent, O2 Saturation Stable - CARDIOVASCULAR CV Status: Pulse Rate WNL, Blood Pressure Stable - GASTROINTESTINAL GI Status: No Symptoms - POST OP HYDRATION Hydration Status: Adequate & Stable
[2017-08-29] MEDS ORDERED: Acetaminophen 1,000 MG in Premix Bag 1 BAG IV ONE (11:56)
--- NOTE | 2017-08-29 11:57 | PCM48HPAN ---
Post Anesthesia Note - EVALUATION WITHIN 48HRS OF ANESTHETIC Vital Signs in Normal Range: Yes Patient Participated in Evaluation: Yes Respiratory Function Stable: Yes Airway Patent: Yes Cardiovascular Function Stable: Yes Hydration Status Stable: Yes Pain Control Satisfactory: Yes Nausea and Vomiting Control Satisfactory: Yes Mental Status Recovered: Yes Resp Rate: 15
[2017-08-29 13:25] VITALS: BP 116/72
--- NOTE | 2017-08-29 13:32 | OR ---
SURGEON: Med Mora MD DATE OF PROCEDURE: 08/29/2017 PREOPERATIVE DIAGNOSIS: Umbilical hernia. POSTOPERATIVE DIAGNOSIS: Umbilical hernia. PROCEDURE PERFORMED: Umbilical hernia repair, no mesh used. COMPLICATIONS: None. FINDINGS: A very small fascial defect above the size of 8 mm, repair primary, no mesh used. PROCEDURE IN DETAIL: The patient was brought to the operating room and placed in the supine position and upon the induction of general endotracheal anesthesia, the patient's abdomen was prepped and draped in sterile fashion. After assessment of appropriate landmarks, a surgical incision was made periumbilically which was then carefully dissected with blunt and sharp dissection surrounding the umbilical stalk. Hernia was entered and the fascial defect was noted, and the excess hernia sac was amputated. The facial edge was noted to be intact and the fascia was then grasped up with Allis clamps and then using 2-0 Ethibond, simple stitches were placed. After repair was finished and exploring the neighborhood, I failed to find any more hernia defect. This was followed with extensive irrigation and good hemostasis was achieved by using electrocautery. The umbilicus was then stitched down to recreate the umbilicus, and the skin was closed with 3-0 Vicryl subcutaneously followed with Dermabond approximating the skin. The patient was then awakened and extubated and transferred to the recovery room in good stable condition. Dr. Mora was present through the whole procedure. At the conclusion of the surgery, before closing the abdominal wound, instrument count and sponge count were done and were correct. Just before surgery, a timeout was called. The patient was identified and procedure identified and procedure started. MARY / DEJAH /[id number]
== END 2017-08-29 13:15 | disposition home or self-care (01) ==
LOC: MW.SDS 08:48
PROVIDERS: ATTEND Surgery
DX: K42.9 Umbilical hernia without obstruction or gangrene (principal); K21.9 Gastro-esophageal reflux disease without esophagitis; G43.909 Migraine, unspecified, not intractable, without status migrainosus; L73.8 Other specified follicular disorders; J45.909 Unspecified asthma, uncomplicated; F41.9 Anxiety disorder, unspecified; F17.210 Nicotine dependence, cigarettes, uncomplicated; Z88.0 Allergy status to penicillin; Z88.2 Allergy status to sulfonamides; Z88.8 Allergy status to other drugs, medicaments and biological substances; Z90.49 Acquired absence of other specified parts of digestive tract; Z98.890 Other specified postprocedural states
CPT/HCPCS: 49585; 81025; A9270; J1100; J1200; J2250; J2405; J3010; J7120; J2704

== ENCOUNTER 2017-08-31 13:08 | Emergency (ER) | payer MEDICAID ==
--- NOTE | 2017-08-31 13:33 | EDM.PDOC ---
ED HPI GENERAL MEDICAL PROBLEM - General Chief Complaint: Abdominal Pain Stated Complaint: PT IS HAVING SHARP PAIN Time Seen by Provider: 08/31/17 13:17 - History of Present Illness INITIAL COMMENTS - FREE TEXT/NARRATIVE: HISTORY AND PHYSICAL: History of present illness: Patient is a 26-year-old female who is status post umbilical hernia repair on Friday who presents with concern of burning discomfort in her umbilical area and intermittent sharp pain. No fever chills nausea vomiting or other complaints. Review of systems: As per history of present illness and below otherwise all systems reviewed and negative. Past medical history: As per history of present illness and as reviewed below otherwise noncontributory. Surgical history: As per history of present illness and as reviewed below otherwise noncontributory. Social history: No reported history of drug or alcohol abuse. Family history: As per history of present illness and as reviewed below otherwise noncontributory. Physical exam: HEENT: Atraumatic, normocephalic, pupils reactive, negative for conjunctival pallor or scleral icterus, mucous membranes moist, throat clear, neck supple, nontender, trachea midline. Lungs: Clear to auscultation, breath sounds equal bilaterally, chest nontender. Heart: S1S2, regular, negative for clicks, rubs, or JVD. Abdomen: Wound appears well with no discharge significant erythema or evidence of infection. Pelvis: Stable nontender. Genitourinary: Deferred. Rectal: Deferred. Extremities: Atraumatic, negative for cords or calf pain. Neurovascular unremarkable. Neuro: Awake, alert, oriented. Cranial nerves II through XII unremarkable. Cerebellum unremarkable. Motor and sensory unremarkable throughout. Exam nonfocal. Diagnostics: CBC CMP acute abdominal series Therapeutics: None Impression: 1 postoperative pain #2 today status post umbilical herniorrhaphy Definitive disposition and diagnosis as appropriate pending reevaluation and review of above. - Related Data Allergies Allergy/AdvReac Type Severity Reaction Status Date / Time escitalopram [From Lexapro] Allergy Anaphylactic Verified 08/31/17 13:26 Shock Penicillins Allergy Hives Verified 08/31/17 13:26 Sulfa (Sulfonamide Allergy Hives Verified 08/31/17 13:26 Antibiotics) Home Meds: Home Meds oxyCODONE HCl/Acetaminophen [Oxycodone-Acetaminophen 5-325] 1 each PO Q6HR 05/20 /18 [History] Past Medical History - Past Health History Medical/Surgical History: Denies Medical/Surgical History HEENT History: Reports: None Cardiovascular History: Reports: None Respiratory History: Reports: Asthma, Other (See Below) Other Respiratory History: asthma as a child Gastrointestinal History: Reports: GERD Genitourinary History: Reports: Other (See Below) Other Genitourinary History: hx kidney failure in the past due to taking alcohol and pills "suicide attempt" 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: Musculoskeletal History: Reports: None Neurological History: Reports: Migraines Psychiatric History: Reports: Anxiety, Depression, Suicide Attempt Endocrine/Metabolic History: Reports: Obesity/BMI 30+ Hematologic History: Reports: None Immunologic History: Reports: None Oncologic (Cancer) History: Reports: None Dermatologic History: Reports: None - Infectious Disease History Infectious Disease History: Reports: None - Past Surgical History Head Surgeries/Procedures: Reports: None GI Surgical History: Reports: Appendectomy, Cholecystectomy, EGD Female Surgical History: Reports: LEEP Other Female Surgeries/Procedures: 2014 and Feb 2016. HX of colposcopy Social & Family History - Family History Family Medical History: Noncontributory - Caffeine Use Caffeine Use: Reports: None ED ROS GENERAL - Review of Systems Review Of Systems: ROS reveals no pertinent complaints other than HPI. ED EXAM, GENERAL - Physical Exam Exam: See Below (See dictation) Course - Vital Signs Last Recorded V/S: Last Vital Signs Temp 36.3 C 08/31/17 13:27 Pulse 75 08/31/17 13:27 Resp 16 08/31/17 13:27 BP 126/82 08/31/17 13:27 Pulse Ox 96 08/31/17 13:27 - Orders/Labs/Meds Orders: Active Orders 24 hr Category Date Time Status Abdomen Series w Chest 1V [CR] Stat Exams 08/31/17 13:24 Taken Labs: Laboratory Tests 08/31/17 08/31/17 Range/Units 13:28 13:28 WBC 8.78 (4.0-11.0) K/uL RBC 4.60 (4.30-5.90) M/uL Hgb 14.6 (12.0-16.0) g/dL Hct 44.0 (36.0-46.0) % MCV 95.7 (80.0-98.0) fL MCH 31.7 (27.0-32.0) pg MCHC 33.2 (31.0-37.0) g/dL RDW Std Deviation 47.3 (28.0-62.0) fl RDW Coeff of Jarred 14 (11.0-15.0) % Plt Count 253 (150-400) K/uL MPV 9.50 (7.40-12.00) fL Neut % (Auto) 60.1 (48.0-80.0) % Lymph % (Auto) 31.4 (16.0-40.0) % Fleming % (Auto) 6.9 (0.0-15.0) % Eos % (Auto) 1.0 (0.0-7.0) % Baso % (Auto) 0.6 (0.0-1.5) % Neut # (Auto) 5.3 (1.4-5.7) K/uL Lymph # (Auto) 2.8 H (0.6-2.4) K/uL Fleming # (Auto) 0.6 (0.0-0.8) K/uL Eos # (Auto) 0.1 (0.0-0.7) K/uL Baso # (Auto) 0.1 (0.0-0.1) K/uL Nucleated RBC % 0.0 /100WBC Nucleated RBCs # 0 K/uL Sodium 137 (136-145) mmol/L Potassium 3.6 (3.5-5.1) mmol/L Chloride 103 (98-107) mmol/L Carbon Dioxide 28.3 (21.0-32.0) mmol/L BUN 9 (7.0-18.0) mg/dL Creatinine 0.8 (0.6-1.0) mg/dL Est Cr Clr Drug Dosing 94.21 mL/min Estimated GFR (MDRD) > 60.0 ml/min Glucose 105 (74-106) mg/dL Calcium 8.7 (8.5-10.1) mg/dL Total Bilirubin 0.3 (0.2-1.0) mg/dL AST 56 H (15-37) IU/L ALT 72 H (14-63) IU/L Alkaline Phosphatase 82 (46-116) U/L Total Protein 6.9 (6.4-8.2) g/dL Albumin 3.5 (3.4-5.0) g/dL Globulin 3.4 (2.0-3.5) g/dL Albumin/Globulin Ratio 1.0 L (1.3-2.8) Departure - Departure Time of Disposition: 14:18 Disposition: Home, Self-Care 01 Condition: Good Clinical Impression: Postoperative pain - Discharge Information Referrals: PCP,None [Primary Care Provider] - Forms: ED Department Discharge Additional Instructions: The following information is given to patients seen in the emergency department who are being discharged to home. This information is to outline your options for follow-up care. We provide all patients seen in our emergency department with a follow-up referral. The need for follow-up, as well as the timing and circumstances, are variable depending upon the specifics of your emergency department visit. If you don't have a primary care physician on staff, we will provide you with a referral. We always advise you to contact your personal physician following an emergency department visit to inform them of the circumstance of the visit and for follow-up with them and/or the need for any referrals to a consulting specialist. The emergency department will also refer you to a specialist when appropriate. This referral assures that you have the opportunity for followup care with a specialist. All of these measure are taken in an effort to provide you with optimal care, which includes your followup. Under all circumstances we always encourage you to contact your private physician who remains a resource for coordinating your care. When calling for followup care, please make the office aware that this follow-up is from your recent emergency room visit. If for any reason you are refused follow-up, please contact the [facility] emergency department at and asked to speak to the emergency department charge nurse. Follow-up Gen. surgery as discussed continue current medications return as needed as discussed
[2017-08-31 13:59] LABS: CHLORIDE,CL 103 mmol/L (98-107); SODIUM,NA 137 mmol/L (136-145)
[2017-08-31 14:38] VITALS: BP 131/86
--- NOTE | 2017-09-01 14:34 | CR ---
EXAM DATE: 08/31/17 PATIENT'S AGE: 26 Patient: HUDSON ZULETA Facility: [place], [place] Site . Site : 1990 Study: XRay Abdomen [id number]/20/2018 2:10:05 PM Ordering Physician: David Lane Final Report: INDICATION: abd pain/ post op 2 days umbilical hernia repair TECHNIQUE: PA chest, upright abdomen and 2 supine abdominal films submitted. COMPARISON: None. FINDINGS: Nonspecific bowel gas pattern with scattered gas throughout normal caliber GI tract. No evidence for bowel obstruction or free air. Heart size and pulmonary vasculature are normal. The lungs are clear. Surgical clips projected over the gallbladder fossa. There is another clip projected over the right lower quadrant. IMPRESSION: Normal bowel gas pattern. No evidence for bowel obstruction or free air. Dictated by Ruperto Longo MD @ 08/31/2017 2:45:40 PM Dictated by: Ruperto Longo MD @ 08/31/2017 14:45:48 (Electronic Signature) Report Signed by Proxy. [facility] HOSPITALDenise
== END 2017-08-31 14:35 | disposition home or self-care (01) ==
LOC: MW.ED 13:08
DX: G89.18 Other acute postprocedural pain (principal); Z98.890 Other specified postprocedural states; Z88.0 Allergy status to penicillin; Z88.2 Allergy status to sulfonamides; Z88.8 Allergy status to other drugs, medicaments and biological substances
CPT/HCPCS: 36415; 74022; 74022-26; 80053; 85025; 99283

== ENCOUNTER 2017-09-25 15:16 | Emergency (ER) | payer MEDICAID ==
--- NOTE | 2017-09-25 15:43 | EDM.PDOC ---
ED HPI GENERAL MEDICAL PROBLEM - General Chief Complaint: General Stated Complaint: PT WOULD LIKE TO BE SEEN. DIDN'T SAY WHY Time Seen by Provider: 09/25/17 15:27 - History of Present Illness INITIAL COMMENTS - FREE TEXT/NARRATIVE: HISTORY AND PHYSICAL: History of present illness: Patient 26-year-old female no significant past medical history presents requesting medical screening exam Review of systems: As per history of present illness and below otherwise all systems reviewed and negative. Past medical history: As per history of present illness and as reviewed below otherwise noncontributory. Surgical history: As per history of present illness and as reviewed below otherwise noncontributory. Social history: No reported history of drug or alcohol abuse. Family history: As per history of present illness and as reviewed below otherwise noncontributory. Physical exam: HEENT: Atraumatic, normocephalic, pupils reactive, negative for conjunctival pallor or scleral icterus, mucous membranes moist, throat clear, neck supple, nontender, trachea midline. Lungs: Clear to auscultation, breath sounds equal bilaterally, chest nontender. Heart: S1S2, regular, negative for clicks, rubs, or JVD. Abdomen: Soft, nondistended, nontender. Negative for masses or hepatosplenomegaly. Negative for costovertebral tenderness. Pelvis: Stable nontender. Genitourinary: Deferred. Rectal: Deferred. Extremities: Atraumatic, negative for cords or calf pain. Neurovascular unremarkable. Neuro: Awake, alert, oriented. Cranial nerves II through XII unremarkable. Cerebellum unremarkable. Motor and sensory unremarkable throughout. Exam nonfocal. Diagnostics: None Therapeutics: None Impression: #1 medical screening exam Definitive disposition and diagnosis as appropriate pending reevaluation and review of above. - Related Data Allergies Allergy/AdvReac Type Severity Reaction Status Date / Time escitalopram [From Lexapro] Allergy Anaphylactic Verified 08/31/17 13:26 Shock Penicillins Allergy Hives Verified 08/31/17 13:26 Sulfa (Sulfonamide Allergy Hives Verified 08/31/17 13:26 Antibiotics) Home Meds: Home Meds oxyCODONE HCl/Acetaminophen [Oxycodone-Acetaminophen 5-325] 1 each PO Q6HR 08/31 [History] Past Medical History - Past Health History Medical/Surgical History: Denies Medical/Surgical History HEENT History: Reports: None Cardiovascular History: Reports: None Respiratory History: Reports: Asthma, Other (See Below) Other Respiratory History: asthma as a child Gastrointestinal History: Reports: GERD Genitourinary History: Reports: Other (See Below) Other Genitourinary History: hx kidney failure in the past due to taking alcohol and pills "suicide attempt" 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: Musculoskeletal History: Reports: None Neurological History: Reports: Migraines Psychiatric History: Reports: Anxiety, Depression, Suicide Attempt Endocrine/Metabolic History: Reports: Obesity/BMI 30+ Hematologic History: Reports: None Immunologic History: Reports: None Oncologic (Cancer) History: Reports: None Dermatologic History: Reports: None - Infectious Disease History Infectious Disease History: Reports: None - Past Surgical History Head Surgeries/Procedures: Reports: None GI Surgical History: Reports: Appendectomy, Cholecystectomy, EGD Female Surgical History: Reports: LEEP Other Female Surgeries/Procedures: 2014 and Feb 2016. HX of colposcopy Social & Family History - Family History Family Medical History: Noncontributory - Caffeine Use Caffeine Use: Reports: None ED ROS GENERAL - Review of Systems Review Of Systems: ROS reveals no pertinent complaints other than HPI. ED EXAM, GENERAL - Physical Exam Exam: See Below (See dictation) Departure - Departure Time of Disposition: 15:42 Disposition: Home, Self-Care 01 Condition: Good Clinical Impression: Encounter for medical screening examination - Discharge Information Referrals: PCP,None [Primary Care Provider] - Additional Instructions: The following information is given to patients seen in the emergency department who are being discharged to home. This information is to outline your options for follow-up care. We provide all patients seen in our emergency department with a follow-up referral. The need for follow-up, as well as the timing and circumstances, are variable depending upon the specifics of your emergency department visit. If you don't have a primary care physician on staff, we will provide you with a referral. We always advise you to contact your personal physician following an emergency department visit to inform them of the circumstance of the visit and for follow-up with them and/or the need for any referrals to a consulting specialist. The emergency department will also refer you to a specialist when appropriate. This referral assures that you have the opportunity for followup care with a specialist. All of these measure are taken in an effort to provide you with optimal care, which includes your followup. Under all circumstances we always encourage you to contact your private physician who remains a resource for coordinating your care. When calling for followup care, please make the office aware that this follow-up is from your recent emergency room visit. If for any reason you are refused follow-up, please contact the [facility] emergency department at and asked to speak to the emergency department charge nurse. Follow-up private medical doctor as needed discussed return as needed as discussed
[2017-09-25 15:50] VITALS: BP 141/91
== END 2017-09-25 16:00 | disposition home or self-care (01) ==
LOC: MW.ED 15:16
DX: Z13.9 Encounter for screening, unspecified (principal); Z88.2 Allergy status to sulfonamides
CPT/HCPCS: 99282

== ENCOUNTER 2018-07-19 22:19 | Emergency (ER) | payer MEDICAID ==
--- NOTE | 2018-07-19 22:50 | EDM.PDOC ---
ED HPI GENERAL MEDICAL PROBLEM - General Chief Complaint: Lower Extremity Injury/Pain Stated Complaint: PT HURT LT ANKLE Time Seen by Provider: 07/19/18 22:38 - History of Present Illness INITIAL COMMENTS - FREE TEXT/NARRATIVE: HISTORY AND PHYSICAL: History of present illness: The patient is a 27-year-old female who is a 3 and approximately 18-1/2 weeks and follows with our nurse clinical laboratory technician presents with complaints of pain to the dorsal aspect of the left foot and the arch of the foot that started about 5 days ago. The patient doesn't recall any specific injury but says she was walking on uneven ground and was also doing some increased activity trying to find her son as he had wandered away and she's not sure if she injured herself during that time and she wasn't focusing on herself. She has not had any falls to the ground and has no specific ankle leg knee or hip pain. She has no related complaints such as abdominal pain vomiting or vaginal bleeding and she says she has had movement. The patient denies any neurosensory changes in her foot and toes and says that it is uncomfortable to move her toes and she doesn't feel like she is moving them as well as normal since this pain. She has not taken anything for pain and she says she has been mostly putting heat on the area as it makes it feel better. She has been ambulating on the foot. The patient only wears flip-flops and does not wear any supportive shoes or inserts. The patient has no head neck or lower back pain no flank pain. Denies any abdominal issues Review of systems: As per history of present illness and below otherwise all systems reviewed and negative. Past medical history: As per history of present illness and as reviewed below otherwise noncontributory. Surgical history: As per history of present illness and as reviewed below otherwise noncontributory. Social history: No reported history of drug or alcohol abuse. Family history: As per history of present illness and as reviewed below otherwise noncontributory. Physical exam: General: Well-developed well-nourished mildly overweight female who is nontoxic and vital signs are noted by me HEENT: Atraumatic, normocephalic, negative for conjunctival pallor or scleral icterus, mucous membranes moist, throat clear, neck supple, nontender, trachea midline. Lungs: Clear to auscultation, breath sounds equal bilaterally, chest nontender. Heart: S1S2, regular rate and rhythm no overt murmurs Abdomen: Soft, nondistended, nontender. Gravid uterus Pelvis: Stable nontender. No lateral hip tenderness on the left Genitourinary: Deferred. Rectal: Deferred. Extremities: Atraumatic appearing with full range of motion of all extremities with the exception of the left foot. At the left dorsal foot medially and extending into the arch there is soft tissue swelling without erythema or warmth and there is tenderness with palpation in the area. There is no crepitus or bony defects or deformities. The metatarsals are nontender as are the toes and the calcaneus and talus are also intact and nontender. There is no proximal ankle tib-fib knee or hip pain. When I palpate the medial and lateral malleoli there is actually no tenderness defects or soft tissue swelling appreciated Refill is normal. The legs are, negative for cords or calf pain. Neurovascular unremarkable. Neuro: Awake, alert, oriented. Cranial nerves II through XII unremarkable. Cerebellum unremarkable. Motor and sensory unremarkable throughout. Exam nonfocal. Diagnostics: Left foot x-ray heart tones Therapeutics: Ice pack, crutches ortho boot heart tones per nursing were 146-152 I discussed with the patient that she can take anti-inflammatories such as diclofenac and I will prescribe her some. She is aware that she can take this in second trimester. I will also give her referrals to podiatry Impression: Left foot pain, second trimester stable Definitive disposition and diagnosis as appropriate pending reevaluation and review of above. Left Ankle Pain Score (Numeric/FACES): 7 - Related Data Allergies Allergy/AdvReac Type Severity Reaction Status Date / Time escitalopram [From Lexapro] Allergy Anaphylactic Verified 07/19/18 22:36 Shock Penicillins Allergy Hives Verified 07/19/18 22:36 Sulfa (Sulfonamide Allergy Hives Verified 07/19/18 22:36 Antibiotics) Home Meds: Home Meds . 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: Musculoskeletal History: Reports: None Neurological History: Reports: Migraines Psychiatric History: Reports: Anxiety, Depression, Suicide Attempt Endocrine/Metabolic History: Reports: Obesity/BMI 30+ Hematologic History: Reports: None Immunologic History: Reports: None Oncologic (Cancer) History: Reports: None Dermatologic History: Reports: None - Infectious Disease History Infectious Disease History: Reports: Chicken Pox - Past Surgical History Head Surgeries/Procedures: Reports: None HEENT Surgical History: Reports: None Cardiovascular Surgical History: Reports: None GI Surgical History: Reports: Appendectomy, Cholecystectomy, EGD Female Surgical History: Reports: LEEP Other Female Surgeries/Procedures: 2014 and Feb 2016. HX of colposcopy Endocrine Surgical History: Reports: None Neurological Surgical History: Reports: None Musculoskeletal Surgical History: Reports: None Social & Family History - Family History Family Medical History: Noncontributory - Tobacco Use Smoking Status *Q: Current Every Day Smoker Years of Tobacco use: 10 Packs/Tins Daily: 0.2 - Caffeine Use Caffeine Use: Reports: Soda - Recreational Drug Use Recreational Drug Use: No Review of Systems - Review of Systems Review Of Systems: ROS reveals no pertinent complaints other than HPI. ED EXAM, GENERAL - Physical Exam Exam: See Below (See dictation) Course - Vital Signs Last Recorded V/S: Last Vital Signs Temp 36.5 C 07/19/18 22:32 Pulse 87 07/19/18 22:32 Resp BP 117/64 07/19/18 22:32 Pulse Ox 98 07/19/18 22:32 - Orders/Labs/Meds Orders: Active Orders 24 hr Category Date Time Status Communication Order [RC] STAT Care 07/19/18 22:44 Active DME for Discharge [COMM] Stat Oth 07/19/18 23:38 Ordered Departure - Departure Time of Disposition: 23:44 Disposition: Home, Self-Care 01 Condition: Good Clinical Impression: Left foot pain, Second trimester - Discharge Information Referrals: PCP,None [Primary Care Provider] - Forms: ED Department Discharge Additional Instructions: The following information is given to patients seen in the emergency department who are being discharged to home. This information is to outline your options for follow-up care. We provide all patients seen in our emergency department with a follow-up referral. The need for follow-up, as well as the timing and circumstances, are variable depending upon the specifics of your emergency department visit. If you don't have a primary care physician on staff, we will provide you with a referral. We always advise you to contact your personal physician following an emergency department visit to inform them of the circumstance of the visit and for follow-up with them and/or the need for any referrals to a consulting specialist. The emergency department will also refer you to a specialist when appropriate. This referral assures that you have the opportunity for followup care with a specialist. All of these measure are taken in an effort to provide you with optimal care, which includes your followup. Under all circumstances we always encourage you to contact your private physician who remains a resource for coordinating your care. When calling for followup care, please make the office aware that this follow-up is from your recent emergency room visit. If for any reason you are refused follow-up, please contact the [facility] emergency department at and ask to speak to the emergency department charge nurse. [facility]- Podiatry [address] [place] [id number] Fax: [phone] Dr Emmett Chavez [address] [place] [id number] Please keep all appointments with your nurse clinical laboratory technician regarding her . Please call and schedule a follow-up appointment with one of our podiatrists using resources given to above for follow-up and reevaluation. Ice and elevate the area after activities and try to not weight-bear on the area using crutches you have been given. Where the ortho boot you have also been given here in the ED at all times and loosen and remove at sleep times. Use [id number] Tylenol or the [facility]. Return to ER as needed and as discussed - My Orders Last 24 Hours: My Active Orders 07/19/18 22:44 Communication Order [RC] STAT 07/19/18 23:38 DME for Discharge [COMM] Stat - Assessment/Plan Last 24 Hours: My Active Orders 07/19/18 22:44 Communication Order [RC] STAT 07/19/18 23:38 DME for Discharge [COMM] Stat
--- NOTE | 2018-07-19 23:32 | CR ---
INDICATION: pain in left foot/ankle area in mornings and before bedtime/ 18 weeks LEFT FOOT No fracture, dislocation, or destructive lesion of bone is seen. No significant arthritic changes or soft tissue abnormalities are identified. IMPRESSION: Negative left foot radiographs. MAINE HOWE MD [employer] Dictated by: Lokesh Howe MD @ 07/19/2018 23:31:30 (Electronically Signed)
[2018-07-20 00:04] VITALS: BP 106/61
== END 2018-07-20 | disposition home or self-care (01) ==
LOC: MW.ED 22:19
DX: O99.89 Other specified diseases and conditions complicating pregnancy, childbirth and the puerperium (principal); M79.672 Pain in left foot; F17.210 Nicotine dependence, cigarettes, uncomplicated; Z3A.18 18 weeks gestation of pregnancy; Z88.0 Allergy status to penicillin; Z88.2 Allergy status to sulfonamides; Z88.8 Allergy status to other drugs, medicaments and biological substances
CPT/HCPCS: 73630-26-LT; 73630-LT; 99283-25

== ENCOUNTER 2018-12-09 00:38 | Inpatient (IN) | payer BC, MEDICAID ==
[2018-12-09] MEDS ORDERED: Water For Irrigation,Sterile 1,000 ML Container IRR PRN (00:41)
[2018-12-09] MEDS ORDERED: Ondansetron 4 MG/2 ML SDV IVPUSH PRN ×2 (00:41→07:13)
[2018-12-09] MEDS ORDERED: Tranexamic Acid 1,000 MG in Sodium Chloride 0.9% 100 ML IV PRN (00:41)
[2018-12-09] MEDS ORDERED: Butorphanol 1 MG/ML SDV IVPUSH PRN (00:41)
[2018-12-09] MEDS ORDERED: Sodium Chloride 0.9% 10 ML SDV IV PRN (00:41)
[2018-12-09] MEDS ORDERED: Lidocaine 1% 50 ML MDV INJECT PRN (00:41)
[2018-12-09] MEDS ORDERED: Sodium Chloride 0.9% 2.5 ML Syringe FLUSH PRN (00:41)
[2018-12-09] MEDS ORDERED: Sodium Chloride 0.9% 10 ML Syringe FLUSH PRN (00:41)
[2018-12-09] MEDS ORDERED: Misoprostol 200 MCG Tab PO PRN (00:41)
[2018-12-09] MEDS ORDERED: Nalbuphine 10 MG/1 ML Vial IVPUSH PRN (00:41)
[2018-12-09] MEDS ORDERED: Carboprost Tromethamine 250 MCG/1 ML Amp IM PRN (00:41)
[2018-12-09] MEDS ORDERED: Methylergonovine 0.2 MG/1 ML Amp IM PRN (00:41)
[2018-12-09] MEDS ORDERED: Misoprostol 25 MCG (1/4 of 100 MCG) Tab VAG PRN ×2 (00:41)
[2018-12-09] MEDS ORDERED: Terbutaline 1 MG/ML SDV SUBCUT PRN (00:41)
[2018-12-09] MEDS ORDERED: Oxytocin/0.9 % Sodium Chloride 30 UNIT/500 ML BAG IV SCH ×2 (00:45)
[2018-12-09] MEDS: Lactated Ringers 1,000 ML IV SCH ×2 (01:52→05:03)
--- NOTE | 2018-12-09 05:17 | PCM.PREANE ---
Preanesthetic Assessment - Anesthesia/Transfusion/Family Hx Anesthesia History: Prior Anesthesia Without Reaction Other Type of Anesthesia Reaction Comment: Denies any known problem in past, hx : motion sickness Family History of Anesthesia Reaction: No Transfusion History: No Prior Transfusion(s) - Review of Systems General: No Symptoms Pulmonary: Other (asthma) Cardiovascular: No Symptoms Gastrointestinal: No Symptoms Neurological: No Symptoms Other: Reports: Depression, Anxiety - Physical Assessment NPO Status Date: 12/08/18 NPO Status Time: 19:00 Height: 5 ft 5 in Weight: 97.522 kg ASA Class: 2 Mental Status: Alert & Oriented x3 Airway Class: Mallampati = 2 Dentition: Reports: Normal Dentition Thyro-Mental Finger Breadths: 2 ROM/Head Extension: Full Lungs: Clear to Auscultation, Normal Respiratory Effort Cardiovascular: Regular Rate, Regular Rhythm - Lab Values: Laboratory Last Values WBC 12.17 K/uL (4.0-11.0) H 12/09/18 00:56 RBC 4.16 M/uL (4.30-5.90) L 12/09/18 00:56 Hgb 11.7 g/dL (12.0-16.0) L 12/09/18 00:56 Hct 36.4 % (36.0-46.0) 12/09/18 00:56 MCV 87.5 fL (80.0-98.0) 12/09/18 00:56 MCH 28.1 pg (27.0-32.0) 12/09/18 00:56 MCHC 32.1 g/dL (31.0-37.0) 12/09/18 00:56 RDW Std Deviation 46.7 fl (28.0-62.0) 12/09/18 00:56 RDW Coeff of Jarred 15 % (11.0-15.0) 12/09/18 00:56 Plt Count 260 K/uL (150-400) 12/09/18 00:56 MPV 10.00 fL (7.40-12.00) 12/09/18 00:56 Blood Type A POSITIVE 12/09/18 00:56 Antibody Screen NEGATIVE 12/09/18 00:56 - Allergies Allergies/Adverse Reactions: Allergies Allergy/AdvReac Type Severity Reaction Status Date / Time escitalopram [From Lexapro] Allergy Anaphylactic Verified 07/19/18 22:36 Shock Penicillins Allergy Hives Verified 07/19/18 22:36 Sulfa (Sulfonamide Allergy Hives Verified 07/19/18 22:36 Antibiotics) - Acknowledgements Anesthesia Type Planned: Epidural Pt an Appropriate Candidate for the Planned Anesthesia: Yes Alternatives and Risks of Anesthesia Discussed w Pt/Guardian: Yes Pt/Guardian Understands and Agrees with Anesthesia Plan: Yes Additional Comments: Plt 260,000 PreAnesthesia Questionnaire - Past Health History Medical/Surgical History: Denies Medical/Surgical History HEENT History: Reports: None Cardiovascular History: Reports: None Respiratory History: Reports: Asthma, Other (See Below) Other Respiratory History: asthma as a child Gastrointestinal History: Reports: GERD Genitourinary History: Reports: Other (See Below) Other Genitourinary History: hx kidney failure in the past due to taking alcohol and pills "suicide attempt" 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: Musculoskeletal History: Reports: None Neurological History: Reports: Migraines Psychiatric History: Reports: Anxiety, Depression, Suicide Attempt Endocrine/Metabolic History: Reports: Obesity/BMI 30+ Hematologic History: Reports: None Immunologic History: Reports: None Oncologic (Cancer) History: Reports: None Dermatologic History: Reports: None - Infectious Disease History Infectious Disease History: Reports: Chicken Pox - Past Surgical History Head Surgeries/Procedures: Reports: None HEENT Surgical History: Reports: None Cardiovascular Surgical History: Reports: None GI Surgical History: Reports: Appendectomy, Cholecystectomy, EGD Female Surgical History: Reports: LEEP Other Female Surgeries/Procedures: 2014 and Feb 2016. HX of colposcopy Endocrine Surgical History: Reports: None Neurological Surgical History: Reports: None Musculoskeletal Surgical History: Reports: None - HOME MEDS Home Medications: Home Meds . [No Known Home Meds] 09/25/17 [History] - CURRENT (IN HOUSE) MEDS Current Meds: Current Medications Butorphanol Tartrate (Stadol) 1 mg IVPUSH Q1H PRN PRN Reason: Pain Carboprost Tromethamine (Hemabate Ds) 250 mcg IM ASDIRECTED PRN PRN Reason: Post Hemorrhage Lactated Ringer's (Ringers, Lactated) 1,000 mls @ 150 mls/hr IV ASDIRECTED ZAID Last Admin: 12/09/18 05:03 Dose: 999 mls/hr Oxytocin/Sodium Chloride (Oxytocin 30 Unit/500 Ml-Ns) 30 unit in 500 mls @ 2 mls/hr IV TITRATE ZAID; Protocol Last Admin: 12/09/18 01:53 Dose: 2 munits/min, 2 mls/hr Oxytocin/Sodium Chloride (Oxytocin 30 Unit/500 Ml-Ns) 30 unit in 500 mls @ 999 mls/hr IV TITRATE ZAID Tranexamic Acid 1,000 mg/ (Sodium Chloride) 110 mls @ 660 mls/hr IV ONETIME PRN PRN Reason: Bleeding Lidocaine HCl (Xylocaine 1%) 50 ml INJECT ONETIME PRN PRN Reason: Laceration repair Methylergonovine Maleate (Methergine) 0.2 mg IM ASDIRECTED PRN PRN Reason: Post Hemorrhage Misoprostol (Cytotec) 25 mcg VAG ONETIME PRN PRN Reason: Cervical Ripening Misoprostol (Cytotec) 25 mcg VAG Q4H PRN PRN Reason: Cervical Ripening Misoprostol (Cytotec) 200 mcg PO ONETIME PRN PRN Reason: Post Hemorrhage Nalbuphine HCl (Nubain) 10 mg IVPUSH Q1H PRN PRN Reason: Pain (severe 7-10) Ondansetron HCl (Zofran) 4 mg IVPUSH Q4H PRN PRN Reason: Nausea/Vomiting Sodium Chloride (Saline Flush) 10 ml FLUSH ASDIRECTED PRN PRN Reason: Keep Vein Open Sodium Chloride (Saline Flush) 2.5 ml FLUSH ASDIRECTED PRN PRN Reason: Keep Vein Open Sodium Chloride (Normal Saline) 10 ml IV ASDIRECTED PRN PRN Reason: IV Use Sterile Water (Sterile Water For Irrigation) 1,000 ml IRR ASDIRECTED PRN PRN Reason: delivery Terbutaline Sulfate (Brethine) 0.25 mg SUBCUT ASDIRECTED PRN PRN Reason: Tacysystole Discontinued Medications Fentanyl/Bupivacaine HCl (Ygqlncna-Jfxbr-Sb 2 Mcg/Ml-0.125%) Confirm Administered Dose 100 mls @ as directed .ROUTE .STK-MED ONE Stop: 12/09/18 04:42
--- NOTE | 2018-12-09 05:56 | PCM.LDHP ---
L&D History of Present Illness - General Date of Service: 12/09/18 Admit Problem/Dx: Patient Status Order with Admit Dx/Problem 12/09/18 00:41 Patient Status [ADT] Routine Admission Diagnosis/Problem Admission Diagnosis/Problem 12/09/18 05:53 28yo EDC 12/16/2018 39 0/7wks. IOL term elective, A+, RI, GBS neg. Source of Information: Patient History Limitations: Reports: No Limitations - History of Present Illness Improves with: Reports: None Worsens with: Reports: None Associated Symptoms: Reports: N - Related Data Allergies/Adverse Reactions: Allergies Allergy/AdvReac Type Severity Reaction Status Date / Time escitalopram [From Lexapro] Allergy Anaphylactic Verified 07/19/18 22:36 Shock Penicillins Allergy Hives Verified 07/19/18 22:36 Sulfa (Sulfonamide Allergy Hives Verified 07/19/18 22:36 Antibiotics) Home Medications: Home Meds . 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: Musculoskeletal History: Reports: None Neurological History: Reports: Migraines Psychiatric History: Reports: Anxiety, Depression, Suicide Attempt Endocrine/Metabolic History: Reports: Obesity/BMI 30+ Hematologic History: Reports: None Immunologic History: Reports: None Oncologic (Cancer) History: Reports: None Dermatologic History: Reports: None - Infectious Disease History Infectious Disease History: Reports: Chicken Pox - Past Surgical History Head Surgeries/Procedures: Reports: None HEENT Surgical History: Reports: None Cardiovascular Surgical History: Reports: None GI Surgical History: Reports: Appendectomy, Cholecystectomy, EGD Female Surgical History: Reports: LEEP Other Female Surgeries/Procedures: 2014 and Feb 2016. HX of colposcopy Endocrine Surgical History: Reports: None Neurological Surgical History: Reports: None Musculoskeletal Surgical History: Reports: None Social & Family History - Family History Family Medical History: Noncontributory - Caffeine Use Caffeine Use: Reports: Soda H&P Review of Systems - Review of Systems: Review Of Systems: See Below General: Reports: No Symptoms HEENT: Reports: No Symptoms Pulmonary: Reports: No Symptoms Cardiovascular: Reports: No Symptoms Gastrointestinal: Reports: No Symptoms Genitourinary: Reports: No Symptoms Musculoskeletal: Reports: No Symptoms Skin: Reports: No Symptoms Psychiatric: Reports: No Symptoms Neurological: Reports: No Symptoms Hematologic/Lymphatic: Reports: No Symptoms Immunologic: Reports: No Symptoms L&D Exam - Exam Exam: See Below - Vital Signs Weight: 97.522 kg - OB Specific Contraction Intensity: Strong Movement: Active Heart Tones: Present Heart Rate (FHR) Variability: Moderate (6-25 bmp) Presentation: Vertex - Cerna Score Cerna Score Cervix Position: Anterior Cerna Score Consistency: Soft Cerna Score Effacement: >80% Cerna Score Dilation: > 5 cm Cerna Score Infant's Station: +1, +2 Cerna Score Total: 13 - Exam General: Alert, Oriented, Cooperative, Mild Distress HEENT: Hearing Intact Lungs: Normal Respiratory Effort Rectal Exam: Deferred Genitourinary: Normal external exam, Normal bimanual exam, Cervical dilitation Back Exam: Full Range of Motion Extremities: Normal Range of Motion, Non-Tender, No Pedal Edema, Normal Capillary Refill Skin: Warm, Dry, Intact Neurological: Cranial Nerves Intact, Reflexes Equal Bilateral, Strength Equal Bilateral, Normal Speech, Normal Tone Psychiatric: Alert, Normal Affect, Normal Mood - Patient Data Lab Results Last 24 hrs: Laboratory Results - last 24 hr 12/09/18 12/09/18 Range/Units 00:56 00:56 WBC 12.17 H (4.0-11.0) K/uL RBC 4.16 L (4.30-5.90) M/uL Hgb 11.7 L (12.0-16.0) g/dL Hct 36.4 (36.0-46.0) % MCV 87.5 (80.0-98.0) fL MCH 28.1 (27.0-32.0) pg MCHC 32.1 (31.0-37.0) g/dL RDW Std Deviation 46.7 (28.0-62.0) fl RDW Coeff of Jarred 15 (11.0-15.0) % Plt Count 260 (150-400) K/uL MPV 10.00 (7.40-12.00) fL Blood Type A POSITIVE Antibody Screen NEGATIVE Result Diagrams: 12/09/18 00:56 - Problem List (1) Supervision of normal IUP (intrauterine ) in multigravida SNOMED Code(s): 409020441, 756532317, 475850045 ICD Code: Z34.80 - ENCOUNTER FOR SUPRVSN OF NORMAL , UNSP TRIMESTER Status: Acute Current Visit: Yes Qualifiers: Trimester: third trimester Qualified Code(s): Z34.83 - Encounter for supervision of other normal , third trimester Problem List Initiated/Reviewed/Updated: Yes Orders Last 24hrs: Active Orders 24 hr Category Date Time Status Patient Status [ADT] Routine ADT 12/09/18 00:41 Active Bedrest Bathroom Privileges [RC] ASDIRECTED Care 12/09/18 00:41 Active Communication Order [RC] ASDIRECTED Care 12/09/18 00:41 Active Communication Order [RC] ASDIRECTED Care 12/09/18 00:41 Active Communication Order [RC] ASDIRECTED Care 12/09/18 00:41 Active May Shower [RC] ASDIRECTED Care 12/09/18 00:41 Active Notify Provider [RC] PRN Care 12/09/18 00:41 Active Notify Provider [RC] PRN Care 12/09/18 00:41 Active Notify Provider [RC] PRN Care 12/09/18 00:41 Active Notify Provider [RC] STAT Care 12/09/18 00:41 Active Oxygen Therapy [RC] ASDIRECTED Care 12/09/18 00:41 Active Up ad Merline [RC] ASDIRECTED Care 12/09/18 00:41 Active Vital Signs [RC] PER UNIT ROUTINE Care 12/09/18 00:41 Active Vital Signs [RC] PER UNIT ROUTINE Care 12/09/18 00:41 Active Regular Diet [DIET] Diet 12/09/18 Breakfast Active Butorphanol [Stadol] Med 12/09/18 00:41 Active 1 mg IVPUSH Q1H PRN Carboprost Tromethamine [Hemabate DS] Med 12/09/18 00:41 Active 250 mcg IM ASDIRECTED PRN Lactated Ringers [Ringers, Lactated] 1,000 ml Med 12/09/18 00:45 Active IV ASDIRECTED Lidocaine 1% [Xylocaine 1%] Med 12/09/18 00:41 Active 50 ml INJECT ONETIME PRN Methylergonovine [Methergine] Med 12/09/18 00:41 Active 0.2 mg IM ASDIRECTED PRN Nalbuphine [Nubain] Med 12/09/18 00:41 Active 10 mg IVPUSH Q1H PRN Ondansetron [Zofran] Med 12/09/18 00:41 Active 4 mg IVPUSH Q4H PRN Oxytocin/0.9 % Sodium Chloride [Oxytocin 30 Unit/500 ML Med 12/09/18 00:45 Active -NS] 30 unit in 500 ml IV TITRATE Oxytocin/0.9 % Sodium Chloride [Oxytocin 30 Unit/500 ML Med 12/09/18 00:45 Active -NS] 30 unit in 500 ml IV TITRATE Sodium Chloride 0.9% [Normal Saline] Med 12/09/18 00:41 Active 10 ml IV ASDIRECTED PRN Sodium Chloride 0.9% [Saline Flush] Med 12/09/18 00:41 Active 10 ml FLUSH ASDIRECTED PRN Sodium Chloride 0.9% [Saline Flush] Med 12/09/18 00:41 Active 2.5 ml FLUSH ASDIRECTED PRN Terbutaline [Brethine] Med 12/09/18 00:41 Active 0.25 mg SUBCUT ASDIRECTED PRN Tranexamic Acid [Cyklokapron] 1,000 mg Med 12/09/18 00:41 Active Sodium Chloride 0.9% [Normal Saline] 100 ml IV ONETIME Water For Irrigation,Sterile [Sterile Water for Med 12/09/18 00:41 Active Irrigation] 1,000 ml IRR ASDIRECTED PRN miSOPROStol [Cytotec] Med 12/09/18 00:41 Active 200 mcg PO ONETIME PRN miSOPROStol [Cytotec] Med 12/09/18 00:41 Active 25 mcg VAG ONETIME PRN miSOPROStol [Cytotec] Med 12/09/18 00:41 Active 25 mcg VAG Q4H PRN Scalp Electrode [WOMSER] Per Unit Routine Oth 12/09/18 00:41 Ordered Medication Administration Instruction [OM.PC] Q3H Oth 12/09/18 00:45 Ordered Peripheral IV Insertion Adult [OM.PC] Routine Oth 12/09/18 00:41 Ordered Resuscitation Status Routine Resus Stat 12/09/18 00:41 Ordered Medication Orders Butorphanol Tartrate (Stadol) 1 mg IVPUSH Q1H PRN PRN Reason: Pain Carboprost Tromethamine (Hemabate Ds) 250 mcg IM ASDIRECTED PRN PRN Reason: Post Hemorrhage Lactated Ringer's (Ringers, Lactated) 1,000 mls @ 150 mls/hr IV ASDIRECTED ZAID Last Admin: 12/09/18 05:03 Dose: 999 mls/hr Infusion: 12/09/18 05:03 Dose: 150 mls/hr Admin: 12/09/18 01:52 Dose: 150 mls/hr Oxytocin/Sodium Chloride (Oxytocin 30 Unit/500 Ml-Ns) 30 unit in 500 mls @ 2 mls/hr IV TITRATE [facility]; Protocol Last Admin: 12/09/18 01:53 Dose: 2 munits/min, 2 mls/hr Oxytocin/Sodium Chloride (Oxytocin 30 Unit/500 Ml-Ns) 30 unit in 500 mls @ 999 mls/hr IV TITRATE ZAID Tranexamic Acid 1,000 mg/ (Sodium Chloride) 110 mls @ 660 mls/hr IV ONETIME PRN PRN Reason: Bleeding Lidocaine HCl (Xylocaine 1%) 50 ml INJECT ONETIME PRN PRN Reason: Laceration repair Methylergonovine Maleate (Methergine) 0.2 mg IM ASDIRECTED PRN PRN Reason: Post Hemorrhage Misoprostol (Cytotec) 25 mcg VAG ONETIME PRN PRN Reason: Cervical Ripening Misoprostol (Cytotec) 25 mcg VAG Q4H PRN PRN Reason: Cervical Ripening Misoprostol (Cytotec) 200 mcg PO ONETIME PRN PRN Reason: Post Hemorrhage Nalbuphine HCl (Nubain) 10 mg IVPUSH Q1H PRN PRN Reason: Pain (severe 7-10) Ondansetron HCl (Zofran) 4 mg IVPUSH Q4H PRN PRN Reason: Nausea/Vomiting Sodium Chloride (Saline Flush) 10 ml FLUSH ASDIRECTED PRN PRN Reason: Keep Vein Open Sodium Chloride (Saline Flush) 2.5 ml FLUSH ASDIRECTED PRN PRN Reason: Keep Vein Open Sodium Chloride (Normal Saline) 10 ml IV ASDIRECTED PRN PRN Reason: IV Use Sterile Water (Sterile Water For Irrigation) 1,000 ml IRR ASDIRECTED PRN PRN Reason: delivery Terbutaline Sulfate (Brethine) 0.25 mg SUBCUT ASDIRECTED PRN PRN Reason: Tacysystole Assessment/Plan Comment:: IOL A: 28yo EDC 12/16/2018 39 0/7wks. IOL term elective, A+, RI, GBS neg. SVE 9/C/+2 SROM clear P: Delivery, Dr Martinez updated.
[2018-12-09] MEDS ORDERED: Benzocaine/Menthol 20%-0.5% Spray 78 GM Cannister TOP PRN (07:02)
[2018-12-09] MEDS ORDERED: Witch Hazel Medicated Pads 40/Jar TOP PRN (07:02)
[2018-12-09] MEDS ORDERED: Acetaminophen 500 MG Tab PO PRN ×2 (07:02)
[2018-12-09] MEDS ORDERED: Bisacodyl 10 MG Supp RECTAL PRN (07:02)
[2018-12-09] MEDS ORDERED: Lanolin 100% Cream 7 GM Tube TOP PRN (07:02)
[2018-12-09] MEDS ORDERED: Ibuprofen 400 MG Tab PO PRN (07:02)
[2018-12-09] MEDS ORDERED: Docusate Sodium 100 MG Cap PO PRN (07:02)
--- NOTE | 2018-12-09 13:40 | OR ---
SURGEON: Clay Martinez MD DATE OF PROCEDURE: Ms. Fine is 28 years old. She is para 1-0-0-1. She is followed in our clinic primarily by our nurse mechanical engineering director. She is admitted in active labor today. She progressed without any problem and she had epidural anesthesia for labor analgesia. The patient was complete-complete, vertex, and +2. She pushed in excess of 3 hours without any progress, so I was consulted. At the time of examination, the heart was normal and the patient was complete-complete, vertex, +2, and she is in an OA position. After consulting with the patient and explained the option for her, we offered to deliver her via vacuum extraction. She consented for that. I used a Kiwi vacuum and with 2 push, I was able to do delivery without any problem. First, the head was delivered without any problem, and then the rest of the shoulder and the rest of the baby delivered. The baby cried immediately. The placenta delivered spontaneous, complete, and intact. There was no need for episiotomy. There was no laceration. There was no complication in the labor and delivery process. NALINI / DEJAH /[id number]
[2018-12-09] MEDS: Ibuprofen 800 MG Tab PO PRN (18:22)
[2018-12-09] MEDS: oxyCODONE 5 MG Tab PO PRN ×2 (19:52→22:09)
[2018-12-10] MEDS: Ibuprofen 800 MG Tab PO PRN ×2 (00:53→08:58)
--- NOTE | 2018-12-10 07:46 | PCM.POSTAN ---
POST ANESTHESIA ASSESSMENT - MENTAL STATUS Mental Status: Alert - VITAL SIGNS Vital Signs: Last Vital Signs Temp 36.6 C 12/10/18 04:20 Pulse 62 12/10/18 04:20 Resp 17 12/10/18 04:20 BP 97/54 L 12/10/18 04:20 Pulse Ox 96 12/10/18 04:20 - RESPIRATORY Respiratory Status: Respiratory Rate WNL - CARDIOVASCULAR CV Status: Pulse Rate WNL - GASTROINTESTINAL GI Status: No Symptoms - POST OP HYDRATION Hydration Status: Adequate & Stable
--- NOTE | 2018-12-10 07:47 | PCM48HPAN ---
Post Anesthesia Note - EVALUATION WITHIN 48HRS OF ANESTHETIC Vital Signs in Normal Range: Yes Patient Participated in Evaluation: Yes Respiratory Function Stable: Yes Airway Patent: Yes Cardiovascular Function Stable: Yes Hydration Status Stable: Yes Pain Control Satisfactory: Yes Nausea and Vomiting Control Satisfactory: Yes Mental Status Recovered: Yes Vital Signs: Last Vital Signs Temp 36.6 C 12/10/18 04:20 Pulse 62 12/10/18 04:20 Resp 17 12/10/18 04:20 BP 97/54 L 12/10/18 04:20 Pulse Ox 96 12/10/18 04:20
--- NOTE | 2018-12-10 08:35 | PCM.DCSUM1 ---
Discharge Summary - Hospital Course Free Text/Narrative:: Discharge home with . Follow up in 6 weeks or prn Diagnosis: Stroke: No Modified Sandhya Scale: No Symptoms at All Modified Sandhya Scale Score: 0 - Discharge Data Discharge Date: 12/10/18 Discharge Disposition: Home, Self-Care 01 Condition: Good - Discharge Diagnosis/Problem(s) (1) Supervision of normal IUP (intrauterine ) in multigravida SNOMED Code(s): 248970499, 724069415, [id number] ICD Code: Z34.80 - ENCOUNTER FOR SUPRVSN OF NORMAL , UNSP TRIMESTER Status: Acute Current Visit: Yes Qualifiers: Trimester: third trimester Qualified Code(s): Z34.83 - Encounter for supervision of other normal , third trimester - Patient Instructions Diet: Usual Diet as Tolerated Activity: As Tolerated, No Strenuous Activities, Rest and Relax Today Driving: May Drive Today Showering/Bathing: May Shower Notify Provider of: Fever, Increased Pain, Swelling and Redness, Nausea and/or Vomiting Other/Special Instructions: Discharge home with infant. Follow up in 6 weeks or prn - Discharge Plan *PRESCRIPTION DRUG MONITORING PROGRAM REVIEWED*: Not Applicable *COPY OF PRESCRIPTION DRUG MONITORING REPORT IN PATIENT ABDOULAYE: Not Applicable Prescriptions/Med Rec: Ibuprofen [Motrin] 800 mg PO Q6H PRN #90 tablet PRN Reason: Pain Home Medications: Home Meds Ibuprofen [Motrin] 800 mg PO Q6H PRN #90 tablet 12/10/18 [Rx] - Discharge Summary/Plan Comment DC Time >30 min.: Yes - General Info Date of Service: 12/10/18 Admission Dx/Problem (Free Text: Patient Status Order with Admit Dx/Problem 12/09/18 00:41 Patient Status [ADT] Routine Admission Diagnosis/Problem Admission Diagnosis/Problem 12/09/18 05:53 28yo EDC 12/16/2018 39 0/7wks. IOL term elective, A+, RI, GBS neg. Functional Status: Reports: Pain Controlled, Tolerating Diet, Ambulating, Urinating - Review of Systems General: Reports: No Symptoms HEENT: Reports: No Symptoms Pulmonary: Reports: No Symptoms Cardiovascular: Reports: No Symptoms Gastrointestinal: Reports: No Symptoms Genitourinary: Reports: No Symptoms Musculoskeletal: Reports: No Symptoms Skin: Reports: No Symptoms Neurological: Reports: No Symptoms Psychiatric: Reports: No Symptoms - Patient Data Vitals - Most Recent: Last Vital Signs Temp 36.6 C 12/10/18 04:20 Pulse 62 12/10/18 04:20 Resp 17 12/10/18 04:20 BP 97/54 L 12/10/18 04:20 Pulse Ox 96 12/10/18 04:20 Weight - Most Recent: 97.522 kg Med Orders - Current: Current Medications Acetaminophen (Tylenol Extra Strength) 500 mg PO Q4H PRN PRN Reason: Pain Last Admin: 12/09/18 19:54 Dose: 500 mg Acetaminophen (Tylenol Extra Strength) 1,000 mg PO Q4H PRN PRN Reason: Pain Benzocaine/Menthol (Dermoplast Pain Relief 20%-0.5% [place]) 78 gm TOP ASDIRECTED PRN PRN Reason: Perineal Comfort Measure Last Admin: 12/09/18 19:55 Dose: 1 canister Bisacodyl (Dulcolax) 10 mg RECTAL ONETIME PRN PRN Reason: Constipation Docusate Sodium (Colace) 100 mg PO BID PRN PRN Reason: Constipation Emollient Ointment (Lansinoh Hpa) 0 gm TOP ASDIRECTED PRN PRN Reason: Sore Nipples Ibuprofen (Motrin) 400 mg PO Q4H PRN PRN Reason: Pain Ibuprofen (Motrin) 800 mg PO Q6H PRN PRN Reason: Pain Last Admin: 12/10/18 00:53 Dose: 800 mg Ondansetron HCl (Zofran) 4 mg IVPUSH Q6H PRN PRN Reason: Nausea/Vomiting Last Admin: 12/09/18 07:20 Dose: 4 mg Oxycodone HCl (Oxycodone) 5 mg PO Q2H PRN PRN Reason: Pain Last Admin: 12/09/18 22:09 Dose: 5 mg Witch Joanna (Tucks) 1 pad TOP ASDIRECTED PRN PRN Reason: comfort care Discontinued Medications Butorphanol Tartrate (Stadol) 1 mg IVPUSH Q1H PRN PRN Reason: Pain Carboprost Tromethamine (Hemabate Ds) 250 mcg IM ASDIRECTED PRN PRN Reason: Post Hemorrhage Lactated Ringer's (Ringers, Lactated) 1,000 mls @ 150 mls/hr IV ASDIRECTED ZAID Last Admin: 12/09/18 05:03 Dose: 999 mls/hr Oxytocin/Sodium Chloride (Oxytocin 30 Unit/500 Ml-Ns) 30 unit in 500 mls @ 2 mls/hr IV TITRATE [facility]; Protocol Last Titration: 12/09/18 06:47 Dose: 999 munits/min, 999 mls/hr Oxytocin/Sodium Chloride (Oxytocin 30 Unit/500 Ml-Ns) 30 unit in 500 mls @ 999 mls/hr IV TITRATE ZAID Tranexamic Acid 1,000 mg/ (Sodium Chloride) 110 mls @ 660 mls/hr IV ONETIME PRN PRN Reason: Bleeding Fentanyl/Bupivacaine HCl (Qcdqajey-Pbmml-Mc 2 Mcg/Ml-0.125%) Confirm Administered Dose 100 mls @ as directed .ROUTE .STK-MED ONE Stop: 12/09/18 04:42 Lidocaine HCl (Xylocaine 1%) 50 ml INJECT ONETIME PRN PRN Reason: Laceration repair Methylergonovine Maleate (Methergine) 0.2 mg IM ASDIRECTED PRN PRN Reason: Post Hemorrhage Misoprostol (Cytotec) 25 mcg VAG ONETIME PRN PRN Reason: Cervical Ripening Misoprostol (Cytotec) 25 mcg VAG Q4H PRN PRN Reason: Cervical Ripening Misoprostol (Cytotec) 200 mcg PO ONETIME PRN PRN Reason: Post Hemorrhage Nalbuphine HCl (Nubain) 10 mg IVPUSH Q1H PRN PRN Reason: Pain (severe 7-10) Ondansetron HCl (Zofran) 4 mg IVPUSH Q4H PRN PRN Reason: Nausea/Vomiting Sodium Chloride (Saline Flush) 10 ml FLUSH ASDIRECTED PRN PRN Reason: Keep Vein Open Sodium Chloride (Saline Flush) 2.5 ml FLUSH ASDIRECTED PRN PRN Reason: Keep Vein Open Sodium Chloride (Normal Saline) 10 ml IV ASDIRECTED PRN PRN Reason: IV Use Sterile Water (Sterile Water For Irrigation) 1,000 ml IRR ASDIRECTED PRN PRN Reason: delivery Terbutaline Sulfate (Brethine) 0.25 mg SUBCUT ASDIRECTED PRN PRN Reason: Tacysystole - Exam General: Reports: Alert, Oriented, Cooperative, No Acute Distress Lungs: Reports: Normal Respiratory Effort GI/Abdominal Exam: Soft, Non-Tender (Female) Exam: Deferred, Vaginal Bleeding Rectal (Female) Exam: Deferred Back Exam: Reports: Normal Inspection, Full Range of Motion Extremities: Normal Inspection, Normal Range of Motion, Non-Tender, No Pedal Edema Skin: Reports: Warm, Dry, Intact Neurological: Reports: No New Focal Deficit, Normal Speech, Normal Tone, Strength Equal Bilateral, Sensation Intact Psy/Mental Status: Reports: Alert, Normal Affect, Normal Mood
[2018-12-10 09:36] VITALS: BP 109/75
== END 2018-12-10 12:30 | disposition home or self-care (01) | DRG 560 ==
LOC: MW.OBCHECK 00:38 → MW.OB 00:38 → MW.OBCHECK 00:41 → MW.OB 00:41 → OBSVTOIN 06:46 → MW.OB 09:29
PROVIDERS: ADMIT Obstetrics & Gynecology; ATTEND Obstetrics & Gynecology
PROC: 10D07Z6 Extraction of Products of Conception, Vacuum, Via Natural or Artificial Opening (ICD-10-PCS; principal; 2018-12-09)
DX: O99.214 Obesity complicating childbirth (principal); E66.9 Obesity, unspecified; Z37.0 Single live birth; Z3A.39 39 weeks gestation of pregnancy
CPT/HCPCS: 01967; 36415; 59025; 59409; 85027; 86850; 86900; 86901; A9270-GY; J2405; J2590; J7120

== ENCOUNTER 2019-02-21 13:01 | Emergency (ER) | payer BC, MEDICAID ==
[2019-02-21 13:50] LABS: BLOOD UREA NITROGEN,BUN 8 mg/dL (7.0-18.0); CARBON DIOXIDE,CO2 24.1 mmol/L (21.0-32.0); CHLORIDE,CL 109 mmol/L (98-107); GLUCOSE RANDOM 106 mg/dL (74-106); POTASSIUM,K 3.9 mmol/L (3.5-5.1); SODIUM,NA 145 mmol/L (136-145)
[2019-02-21 13:58] LABS: ACETAMINOPHEN < 2.0 ug/mL
--- NOTE | 2019-02-21 14:14 | EDM.PDOC ---
ED HPI GENERAL MEDICAL PROBLEM - General Chief Complaint: Drug or Alcohol Abuse Stated Complaint: POSSIBLE OVERDOSE Time Seen by Provider: 02/21/19 13:03 Source of Information: Reports: Patient, EMS History Limitations: Reports: No Limitations - History of Present Illness INITIAL COMMENTS - FREE TEXT/NARRATIVE: HISTORY AND PHYSICAL: History of present illness: Patient is a 28-year-old female who presents to the ED today via EMS for concern of drug overdose for suicide attempt. Patient states she started drinking alcohol as well as took 2 bottles of hydroxyzine prescription in order to try to kill herself. Patient states she does feel "silly" after taking the pills so called EMS because she started feeling tired and drowsy. Patient states she has been drinking since last night and has had a few drinks this morning. Other than feeling tired and "sleepy" patient any other symptoms or concerns. Denies taking any other medications or any other means for attempt of suicide. Patient denies fever, chills, chest pain, shortness of breath, or cough. Denies headache, neck stiff ness, change in vision, syncope, or near syncope. Denies nausea, vomiting, abdominal pain, diarrhea, constipation, or dysuria. Has not noted any blood in urine or stool. Patient has been eating and drinking appropriately. Review of systems: As per history of present illness and below otherwise all systems reviewed and negative. Past medical history: As per history of present illness and as reviewed below otherwise noncontributory. Surgical history: As per history of present illness and as reviewed below otherwise noncontributory. Social history: See social history for further information Family history: As per history of present illness and as reviewed below otherwise noncontributory. Physical exam: General: Patient is alert, oriented, and in no acute distress. Patient laying comfortably on exam table. She does sleep periodically throughout exam but is arousable to verbal stimuli and answers questions appropriately. HEENT: Atraumatic, normocephalic, pupils equal and reactive bilaterally, negative for conjunctival pallor or scleral icterus, mucous membranes moist, TMs normal bilaterally, throat clear, neck supple, nontender, trachea midline. No drooling or trismus noted. No meningeal signs. No hot potato voice noted. Lungs: Clear to auscultation, breath sounds equal bilaterally, chest nontender. Heart: S1S2, regular rate and rhythm without overt murmur Abdomen: Soft, nondistended, nontender. Negative for masses or hepatosplenomegaly. Negative for costovertebral tenderness. Pelvis: Stable nontender. Genitourinary: Deferred. Rectal: Deferred. Skin: Intact, warm, dry. No lesions or rashes noted. Extremities: Atraumatic, negative for cords or calf pain. Neurovascular unremarkable. Neuro: Does sleep throughout exam but awakes to verbal stimuli, alert, oriented. Cranial nerves II through XII unremarkable. Cerebellum unremarkable. Motor and sensory unremarkable throughout. Exam nonfocal. Notes: [facility] Dr. Trujillo, [facility], consulted on patient and accepting of transfer. EMS arranged Diagnostics: CBC, CMP, UA, urine drug screen, EKG, ethanol, TSH, magnesium, salicylate, acetaminophen Therapeutics: Saline Impression: Medication overdose Suicide attempt Plan: 1. Transfer to Dr. Trujillo at via EMS Definitive disposition and diagnosis as appropriate pending reevaluation and review of above. Treatments PRIVATE DUTY RN: Reports: IV/IO, Other (see below) Other Treatments PRIVATE DUTY RN: zofran 4mg IVP - Related Data Allergies Allergy/AdvReac Type Severity Reaction Status Date / Time escitalopram [From Lexapro] Allergy Anaphylactic Verified 02/21/19 13:07 Shock Penicillins Allergy Hives Verified 02/21/19 13:07 Sulfa (Sulfonamide Allergy Hives Verified 02/21/19 13:07 Antibiotics) Home Meds: Home Meds hydrOXYzine HCl [Hydroxyzine HCl] 1 - 2 tab PO Q6HR PRN 02/21/19 [History] Past Medical History - Past Health History Medical/Surgical History: Denies Medical/Surgical History HEENT History: Reports: None Cardiovascular History: Reports: None Respiratory History: Reports: Asthma, Other (See Below) Other Respiratory History: asthma as a child Gastrointestinal History: Reports: GERD Genitourinary History: Reports: Other (See Below) Other Genitourinary History: hx kidney failure in the past due to taking alcohol and pills "suicide attempt" 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: Musculoskeletal History: Reports: None Neurological History: Reports: Migraines Psychiatric History: Reports: Anxiety, Depression, Suicide Attempt Endocrine/Metabolic History: Reports: Obesity/BMI 30+ Hematologic History: Reports: None Immunologic History: Reports: None Oncologic (Cancer) History: Reports: None Dermatologic History: Reports: None - Infectious Disease History Infectious Disease History: Reports: Chicken Pox - Past Surgical History Head Surgeries/Procedures: Reports: None HEENT Surgical History: Reports: None Cardiovascular Surgical History: Reports: None GI Surgical History: Reports: Appendectomy, Cholecystectomy, EGD Female Surgical History: Reports: LEEP Other Female Surgeries/Procedures: 2014 and Feb 2016. HX of colposcopy Endocrine Surgical History: Reports: None Neurological Surgical History: Reports: None Musculoskeletal Surgical History: Reports: None Social & Family History - Family History Family Medical History: Noncontributory - Tobacco Use Smoking Status *Q: Current Every Day Smoker Years of Tobacco use: 12 Packs/Tins Daily: 1 - Caffeine Use Caffeine Use: Reports: Soda - Recreational Drug Use Recreational Drug Use: No ED ROS GENERAL - Review of Systems Review Of Systems: ROS reveals no pertinent complaints other than HPI. ED EXAM, GENERAL - Physical Exam Exam: See Below (See dictation) Course - Vital Signs Last Recorded V/S: Last Vital Signs Temp 97.1 F 02/21/19 14:29 Pulse 94 02/21/19 14:29 Resp 16 02/21/19 14:29 BP 114/81 02/21/19 14:29 Pulse Ox 97 02/21/19 14:29 - Orders/Labs/Meds Orders: Active Orders 24 hr Category Date Time Status EKG Documentation Completion [RC] STAT Care 02/21/19 13:03 Active EKG Documentation Completion [RC] STAT Care 02/21/19 13:03 Inactive Labs: Laboratory Tests 02/21/19 02/21/19 02/21/19 Range/Units 13:07 13:07 13:16 WBC 7.08 (4.0-11.0) K/uL RBC 4.47 (4.30-5.90) M/uL Hgb 12.5 (12.0-16.0) g/dL Hct 38.3 (36.0-46.0) % MCV 85.7 (80.0-98.0) fL MCH 28.0 (27.0-32.0) pg MCHC 32.6 (31.0-37.0) g/dL RDW Std Deviation 53.2 (28.0-62.0) fl RDW Coeff of Jarred 17 H (11.0-15.0) % Plt Count 295 (150-400) K/uL MPV 9.20 (7.40-12.00) fL Neut % (Auto) 52.0 (48.0-80.0) % Lymph % (Auto) 39.7 (16.0-40.0) % Hyde % (Auto) 6.8 (0.0-15.0) % Eos % (Auto) 0.8 (0.0-7.0) % Baso % (Auto) 0.7 (0.0-1.5) % Neut # (Auto) 3.7 (1.4-5.7) K/uL Lymph # (Auto) 2.8 H (0.6-2.4) K/uL Hyde # (Auto) 0.5 (0.0-0.8) K/uL Eos # (Auto) 0.1 (0.0-0.7) K/uL Baso # (Auto) 0.1 (0.0-0.1) K/uL Nucleated RBC % 0.0 /100WBC Nucleated RBCs # 0 K/uL Sodium 145 (136-145) mmol/L Potassium 3.9 (3.5-5.1) mmol/L Chloride 109 H (98-107) mmol/L Carbon Dioxide 24.1 (21.0-32.0) mmol/L BUN 8 (7.0-18.0) mg/dL Creatinine 0.7 (0.6-1.0) mg/dL Est Cr Clr Drug Dosing 105.74 mL/min Estimated GFR (MDRD) > 60.0 ml/min Glucose 106 (74-106) mg/dL Calcium 8.5 (8.5-10.1) mg/dL Magnesium 2.0 (1.8-2.4) mg/dL Total Bilirubin 0.2 (0.2-1.0) mg/dL AST 31 (15-37) IU/L ALT 46 (14-63) IU/L Alkaline Phosphatase 80 (46-116) U/L Total Protein 7.6 (6.4-8.2) g/dL Albumin 3.8 (3.4-5.0) g/dL Globulin 3.8 (2.6-4.0) g/dL Albumin/Globulin Ratio 1.0 (0.9-1.6) TSH 3rd Generation 1.65 (0.36-3.74) uIU/mL Urine Color YELLOW Urine Appearance CLEAR Urine pH 6.5 (5.0-8.0) Ur Specific [place] 1.020 (1.001-1.035) Urine Protein NEGATIVE (NEGATIVE) mg/dL Urine Glucose (UA) NEGATIVE (NEGATIVE) mg/dL Urine Ketones NEGATIVE (NEGATIVE) mg/dL Urine Occult Blood NEGATIVE (NEGATIVE) Urine Nitrite NEGATIVE (NEGATIVE) Urine Bilirubin NEGATIVE (NEGATIVE) Urine Urobilinogen 0.2 (<2.0) EU/dL Ur Leukocyte Esterase NEGATIVE (NEGATIVE) Urine RBC 0-2 (0-2/HPF) Urine WBC 0-3 (0-5/HPF) Ur Epithelial Cells MODERATE (NONE-FEW) Urine Bacteria FEW (NEGATIVE) Urine HCG, Qual (NEGATIVE) Salicylates 4.6 (0-20) mg/dL Urine Opiates Screen (NEGATIVE) Ur Oxycodone Screen (NEGATIVE) Urine Methadone Screen (NEGATIVE) Acetaminophen < 2.0 ug/mL Ur Barbiturates Screen (NEGATIVE) Ur Phencyclidine Scrn (NEGATIVE) Ur Amphetamine Screen (NEGATIVE) U Methamphetamines Scrn (NEGATIVE) U Benzodiazepines Scrn (NEGATIVE) U Cocaine Metab Screen (NEGATIVE) U Marijuana (THC) Screen (NEGATIVE) Ethyl Alcohol 71 mg/dL 02/21/19 02/21/19 Range/Units 13:16 13:16 WBC (4.0-11.0) K/uL RBC (4.30-5.90) M/uL Hgb (12.0-16.0) g/dL Hct (36.0-46.0) % MCV (80.0-98.0) fL MCH (27.0-32.0) pg MCHC (31.0-37.0) g/dL RDW Std Deviation (28.0-62.0) fl RDW Coeff of Jarred (11.0-15.0) % Plt Count (150-400) K/uL MPV (7.40-12.00) fL Neut % (Auto) (48.0-80.0) % Lymph % (Auto) (16.0-40.0) % Hyde % (Auto) (0.0-15.0) % Eos % (Auto) (0.0-7.0) % Baso % (Auto) (0.0-1.5) % Neut # (Auto) (1.4-5.7) K/uL Lymph # (Auto) (0.6-2.4) K/uL Hyde # (Auto) (0.0-0.8) K/uL Eos # (Auto) (0.0-0.7) K/uL Baso # (Auto) (0.0-0.1) K/uL Nucleated RBC % /100WBC Nucleated RBCs # K/uL Sodium (136-145) mmol/L Potassium (3.5-5.1) mmol/L Chloride (98-107) mmol/L Carbon Dioxide (21.0-32.0) mmol/L BUN (7.0-18.0) mg/dL Creatinine (0.6-1.0) mg/dL Est Cr Clr Drug Dosing mL/min Estimated GFR (MDRD) ml/min Glucose (74-106) mg/dL Calcium (8.5-10.1) mg/dL Magnesium (1.8-2.4) mg/dL Total Bilirubin (0.2-1.0) mg/dL AST (15-37) IU/L ALT (14-63) IU/L Alkaline Phosphatase (46-116) U/L Total Protein (6.4-8.2) g/dL Albumin (3.4-5.0) g/dL Globulin (2.6-4.0) g/dL Albumin/Globulin Ratio (0.9-1.6) TSH 3rd Generation (0.36-3.74) uIU/mL Urine Color Urine Appearance Urine pH (5.0-8.0) Ur Specific [place] (1.001-1.035) Urine Protein (NEGATIVE) mg/dL Urine Glucose (UA) (NEGATIVE) mg/dL Urine Ketones (NEGATIVE) mg/dL Urine Occult Blood (NEGATIVE) Urine Nitrite (NEGATIVE) Urine Bilirubin (NEGATIVE) Urine Urobilinogen (<2.0) EU/dL Ur Leukocyte Esterase (NEGATIVE) Urine RBC (0-2/HPF) Urine WBC (0-5/HPF) Ur Epithelial Cells (NONE-FEW) Urine Bacteria (NEGATIVE) Urine HCG, Qual NEGATIVE (NEGATIVE) Salicylates (0-20) mg/dL Urine Opiates Screen NEGATIVE (NEGATIVE) Ur Oxycodone Screen NEGATIVE (NEGATIVE) Urine Methadone Screen NEGATIVE (NEGATIVE) Acetaminophen ug/mL Ur Barbiturates Screen NEGATIVE (NEGATIVE) Ur Phencyclidine Scrn NEGATIVE (NEGATIVE) Ur Amphetamine Screen NEGATIVE (NEGATIVE) U Methamphetamines Scrn NEGATIVE (NEGATIVE) U Benzodiazepines Scrn NEGATIVE (NEGATIVE) U Cocaine Metab Screen NEGATIVE (NEGATIVE) U Marijuana (THC) Screen NEGATIVE (NEGATIVE) Ethyl Alcohol mg/dL Departure - Departure Time of Disposition: 14:15 Disposition: DC/Tfer to Acute Hospital 02 Clinical Impression: Suicide attempt Medication overdose Qualifiers: Encounter type: sequela Injury intent: intentional self-harm Qualified Code(s) : T50.902S - Poisoning by unspecified drugs, medicaments and biological substances, intentional self-harm, sequela - Discharge Information Referrals: PCP,Unobtain [Primary Care Provider] - Forms: ED Department Discharge - My Orders Last 24 Hours: My Active Orders 02/21/19 13:03 EKG Documentation Completion [RC] STAT EKG Documentation Completion [RC] STAT - Assessment/Plan Last 24 Hours: My Active Orders 02/21/19 13:03 EKG Documentation Completion [RC] STAT EKG Documentation Completion [RC] STAT
[2019-02-21 14:31] VITALS: BP 114/81; PULSE 94
== END 2019-02-21 15:03 ==
LOC: MW.ED 13:01
DX: T43.592A Poisoning by other antipsychotics and neuroleptics, intentional self-harm, initial encounter (principal); F17.210 Nicotine dependence, cigarettes, uncomplicated; Z88.1 Allergy status to other antibiotic agents; Z88.2 Allergy status to sulfonamides; Z88.8 Allergy status to other drugs, medicaments and biological substances
CPT/HCPCS: 36415; 80053; 80305-QW; 81001; 81025; 83735; 84443; 85025; 93005; 99285-25; G0480

== ENCOUNTER 2019-02-25 17:47 | Emergency (ER) | payer BC ==
[2019-02-25 18:05] VITALS: BP 165/88; PULSE 84
--- NOTE | 2019-02-25 18:33 | EDM.PDOC ---
ED HPI GENERAL MEDICAL PROBLEM - General Chief Complaint: Behavioral/Psych Stated Complaint: ANXIETY Time Seen by Provider: 02/25/19 18:19 Source of Information: Reports: Patient History Limitations: Reports: No Limitations - History of Present Illness INITIAL COMMENTS - FREE TEXT/NARRATIVE: HISTORY AND PHYSICAL: History of present illness: Patient is a 28-year-old female who presents to the ED today with desire for getting started on depression medications. Patient is 2 months and had care with Shelby Montoya throughout her . Patient states she missed the 6 week follow-up appointment with Shelby to depression issues. Patient was recently transferred to [facility] for suicide attempt with medication overdose. Patient states she was discharged from [facility] without getting started on any depression medications. Patient denies fever, chills, chest pain, shortness of breath, or cough. Denies headache, neck stiff ness, change in vision, syncope, or near syncope. Denies nausea, vomiting, abdominal pain, diarrhea, constipation, or dysuria. Has not noted any blood in urine or stool. Patient has been eating and drinking appropriately. Review of systems: As per history of present illness and below otherwise all systems reviewed and negative. Past medical history: As per history of present illness and as reviewed below otherwise noncontributory. Surgical history: As per history of present illness and as reviewed below otherwise noncontributory. Social history: See social history for further information Family history: As per history of present illness and as reviewed below otherwise noncontributory. Physical exam: General: Patient is alert, oriented, and in no acute distress. Patient sitting comfortably on exam table. HEENT: Atraumatic, normocephalic, pupils equal and reactive bilaterally, negative for conjunctival pallor or scleral icterus, mucous membranes moist, TMs normal bilaterally, throat clear, neck supple, nontender, trachea midline. No drooling or trismus noted. No meningeal signs. No hot potato voice noted. Lungs: Clear to auscultation, breath sounds equal bilaterally, chest nontender. Heart: S1S2, regular rate and rhythm without overt murmur Abdomen: Soft, nondistended, nontender. Negative for masses or hepatosplenomegaly. Negative for costovertebral tenderness. Pelvis: Stable nontender. Genitourinary: Deferred. Rectal: Deferred. Skin: Intact, warm, dry. No lesions or rashes noted. Extremities: Atraumatic, negative for cords or calf pain. Neurovascular unremarkable. Neuro: Awake, alert, oriented. Cranial nerves II through XII unremarkable. Cerebellum unremarkable. Motor and sensory unremarkable throughout. Exam nonfocal. Notes: Did discuss at length with patient that we do not prescribe the patient medications to the emergency room. I did ask who patient would prefer to see for depression management and states she would like to see Shelby Montoya at least initially. I did call and speak to Shelby Montoya and she will see patient at 8:30 tomorrow morning in her clinic. Voices understanding and is agreeable to plan of care. Denies any further questions or concerns at this time. Diagnostics: None Therapeutics: None Prescription: None Impression: Medical screening exam Plan: 1. Follow up in the clinic tomorrow with Shelby Montoya at 8:30 in the morning. 2. Return to the ED as needed and as discussed. Definitive disposition and diagnosis as appropriate pending reevaluation and review of above. - Related Data Allergies Allergy/AdvReac Type Severity Reaction Status Date / Time escitalopram [From Lexapro] Allergy Anaphylactic Verified 02/25/19 18:05 Shock Penicillins Allergy Hives Verified 02/25/19 18:05 Sulfa (Sulfonamide Allergy Hives Verified 02/25/19 18:05 Antibiotics) Home Meds: Home Meds . 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: Musculoskeletal History: Reports: None Neurological History: Reports: Migraines Psychiatric History: Reports: Anxiety, Depression, Suicide Attempt Endocrine/Metabolic History: Reports: Obesity/BMI 30+ Hematologic History: Reports: None Immunologic History: Reports: None Oncologic (Cancer) History: Reports: None Dermatologic History: Reports: None - Infectious Disease History Infectious Disease History: Reports: Chicken Pox - Past Surgical History Head Surgeries/Procedures: Reports: None HEENT Surgical History: Reports: None Cardiovascular Surgical History: Reports: None GI Surgical History: Reports: Appendectomy, Cholecystectomy, EGD Female Surgical History: Reports: LEEP Other Female Surgeries/Procedures: 2014 and Feb 2016. HX of colposcopy Endocrine Surgical History: Reports: None Neurological Surgical History: Reports: None Musculoskeletal Surgical History: Reports: None Social & Family History - Family History Family Medical History: Noncontributory - Tobacco Use Smoking Status *Q: Current Every Day Smoker Years of Tobacco use: 10 Packs/Tins Daily: 1 - Caffeine Use Caffeine Use: Reports: Soda - Recreational Drug Use Recreational Drug Use: No ED ROS GENERAL - Review of Systems Review Of Systems: Comprehensive ROS is negative, except as noted in HPI. ED EXAM, GENERAL - Physical Exam Exam: See Below (See dictation) Course - Vital Signs Last Recorded V/S: Last Vital Signs Temp 97.3 F 02/25/19 18:01 Pulse 84 02/25/19 18:01 Resp 18 02/25/19 18:01 BP 165/88 H 02/25/19 18:01 Pulse Ox 97 02/25/19 18:01 Departure - Departure Time of Disposition: 18:32 Disposition: Home, Self-Care 01 Clinical Impression: Encounter for medical screening examination - Discharge Information Referrals: PCP,None [Primary Care Provider] - Forms: ED Department Discharge Additional Instructions: The following information is given to patients seen in the emergency department who are being discharged to home. This information is to outline your options for follow-up care. We provide all patients seen in our emergency department with a follow-up referral. The need for follow-up, as well as the timing and circumstances, are variable depending upon the specifics of your emergency department visit. If you don't have a primary care physician on staff, we will provide you with a referral. We always advise you to contact your personal physician following an emergency department visit to inform them of the circumstance of the visit and for follow-up with them and/or the need for any referrals to a consulting specialist. The emergency department will also refer you to a specialist when appropriate. This referral assures that you have the opportunity for follow-up care with a specialist. All of these measure are taken in an effort to provide you with optimal care, which includes your follow-up. Under all circumstances we always encourage you to contact your private physician who remains a resource for coordinating your care. When calling for follow-up care, please make the office aware that this follow-up is from your recent emergency room visit. If for any reason you are refused follow-up, please contact the [facility] Emergency Department at and asked to speak to the emergency department charge nurse. [facility] [id number], [place] [address] [facility] [address] [place] [id number] 1. Follow up in the clinic tomorrow with Shelby Montoya at 8:30 in the morning. 2. Return to the ED as needed and as discussed.
== END 2019-02-25 18:59 | disposition home or self-care (01) ==
LOC: MW.ED 17:47
DX: Z13.9 Encounter for screening, unspecified (principal); F17.210 Nicotine dependence, cigarettes, uncomplicated; Z88.8 Allergy status to other drugs, medicaments and biological substances; Z88.0 Allergy status to penicillin; Z88.2 Allergy status to sulfonamides
CPT/HCPCS: 99282

== ENCOUNTER 2019-07-01 14:17 | Emergency (ER) | payer BC ==
--- NOTE | 2019-07-01 14:46 | EDM.PDOC ---
ED HPI GENERAL MEDICAL PROBLEM - General Chief Complaint: General Stated Complaint: SINUS Time Seen by Provider: 07/01/19 14:45 Source of Information: Reports: Patient History Limitations: Reports: No Limitations - History of Present Illness INITIAL COMMENTS - FREE TEXT/NARRATIVE: HISTORY AND PHYSICAL: History of present illness: Patient is a 28-year-old female presents to the ED with complaint of possible sinus infection. She states for the past couple of months she has been having sinus pressure and nasal congestion. She denies fevers, chills, chest pain, shortness of breath. She does report a cough and post nasal drip x 1 weeks. Denies recent travel or known sick contacts. Review of systems: As per history of present illness and below otherwise all systems reviewed and negative. Past medical history: As per history of present illness and as reviewed below otherwise noncontributory. Surgical history: As per history of present illness and as reviewed below otherwise noncontributory. Social history: No reported history of drug or alcohol abuse. Family history: As per history of present illness and as reviewed below otherwise noncontributory. Physical exam: General: Patient sitting comfortably in no acute distress and nontoxic appearing HEENT: Maxillary sinus tenderness to palpation. TMs are clear bilaterally. Atraumatic, normocephalic, pupils reactive, negative for conjunctival pallor or scleral icterus, mucous membranes moist, throat clear, neck supple, nontender, trachea midline. No meningeal signs. Lungs: Clear to auscultation, breath sounds equal bilaterally, chest nontender. Heart: S1S2, regular, negative for clicks, rubs, or overt murmur. Abdomen: Soft, nondistended, nontender. Negative for masses or hepatosplenomegaly. Negative for costovertebral tenderness. No rigidity, rebound , guarding. Pelvis: Stable nontender. Genitourinary: Deferred. Rectal: Deferred. Extremities: Atraumatic, negative for cords or calf pain. Neurovascular unremarkable. Neuro: Awake, alert, oriented. Cranial nerves II through XII unremarkable. Cerebellum unremarkable. Motor and sensory unremarkable throughout. Exam nonfocal. Notes: Diagnostics: none Therapeutics: none Prescriptions: Doxycycline Impression: Acute sinusitis Plan: Take antibiotic as instructed Alternate Tylenol and ibuprofen as needed Follow up with primary care provider Return To ED as needed as discussed Definitive disposition and diagnosis as appropriate pending reevaluation and review of above. sinus Pain Score (Numeric/FACES): 9 - Related Data Allergies Allergy/AdvReac Type Severity Reaction Status Date / Time escitalopram [From Lexapro] Allergy Anaphylactic Verified 02/25/19 18:05 Shock Penicillins Allergy Hives Verified 02/25/19 18:05 Sulfa (Sulfonamide Allergy Hives Verified 02/25/19 18:05 Antibiotics) Home Meds: Home Meds Doxycycline Hyclate 100 mg PO BID 7 Days #14 capsule 07/01/19 [Rx] Past Medical History - Past Health History Medical/Surgical History: Denies Medical/Surgical History HEENT History: Reports: None Cardiovascular History: Reports: None Respiratory History: Reports: Asthma, Other (See Below) Other Respiratory History: asthma as a child Gastrointestinal History: Reports: GERD Genitourinary History: Reports: Other (See Below) Other Genitourinary History: hx kidney failure in the past due to taking alcohol and pills "suicide attempt" [employer]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: Musculoskeletal History: Reports: None Neurological History: Reports: Migraines Psychiatric History: Reports: Anxiety, Depression, Suicide Attempt Endocrine/Metabolic History: Reports: Obesity/BMI 30+ Hematologic History: Reports: None Immunologic History: Reports: None Oncologic (Cancer) History: Reports: None Dermatologic History: Reports: None - Infectious Disease History Infectious Disease History: Reports: Chicken Pox - Past Surgical History Head Surgeries/Procedures: Reports: None HEENT Surgical History: Reports: None Cardiovascular Surgical History: Reports: None GI Surgical History: Reports: Appendectomy, Cholecystectomy, EGD Female Surgical History: Reports: LEEP Other Female Surgeries/Procedures: 2014 and Feb 2016. HX of colposcopy Endocrine Surgical History: Reports: None Neurological Surgical History: Reports: None Musculoskeletal Surgical History: Reports: None Social & Family History - Family History Family Medical History: Noncontributory - Tobacco Use Smoking Status *Q: Current Every Day Smoker Years of Tobacco use: 20 Packs/Tins Daily: 0.5 - Caffeine Use Caffeine Use: Reports: Soda - Recreational Drug Use Recreational Drug Use: No ED ROS GENERAL - Review of Systems Review Of Systems: Comprehensive ROS is negative, except as noted in HPI. ED EXAM, GENERAL - Physical Exam Exam: See Below (see dictation) Course - Vital Signs Last Recorded V/S: Last Vital Signs Temp 96.8 F L 07/01/19 14:56 Pulse 84 07/01/19 14:56 Resp 16 07/01/19 14:56 BP 127/86 07/01/19 14:56 Pulse Ox 99 07/01/19 14:56 Departure - Departure Time of Disposition: 14:45 Disposition: Home, Self-Care 01 Condition: Good Clinical Impression: Acute sinusitis - Discharge Information Prescriptions: Doxycycline Hyclate 100 mg PO BID 7 Days #14 capsule Instructions: Sinusitis, Adult, [id number] Referrals: PCP,None [Primary Care Provider] - Forms: ED Department Discharge Additional Instructions: The following information is given to patients seen in the emergency department who are being discharged to home. This information is to outline your options for follow-up care. We provide all patients seen in our emergency department with a follow-up referral. The need for follow-up, as well as the timing and circumstances, are variable depending upon the specifics of your emergency department visit. If you don't have a primary care physician on staff, we will provide you with a referral. We always advise you to contact your personal physician following an emergency department visit to inform them of the circumstance of the visit and for follow-up with them and/or the need for any referrals to a consulting specialist. The emergency department will also refer you to a specialist when appropriate. This referral assures that you have the opportunity for follow-up care with a specialist. All of these measure are taken in an effort to provide you with optimal care, which includes your follow-up. Under all circumstances we always encourage you to contact your private physician who remains a resource for coordinating your care. When calling for follow-up care, please make the office aware that this follow-up is from your recent emergency room visit. If for any reason you are refused follow-up, please contact the [facility] Emergency Department at and asked to speak to the emergency department charge nurse. [facility] [address] [place] [id number] [address] [id number] Take antibiotic as instructed Alternate Tylenol and ibuprofen as needed Follow up with primary care provider Return To ED as needed as discussed Sepsis Event Note - Evaluation Sepsis Screening Result: No Definite Risk - Focused Exam Vital Signs: Vital Signs Temp Pulse Resp BP Pulse Ox 07/01/19 14:56 96.8 F L 84 16 127/86 99 07/01/19 14:37 96 F L 94 15 138/78 97 Date Exam was Performed: 07/01/19 Time Exam was Performed: 19:28
[2019-07-01 15:03] VITALS: BP 127/86; PULSE 84
== END 2019-07-01 15:03 | disposition home or self-care (01) ==
LOC: MW.ED 14:17
DX: J01.90 Acute sinusitis, unspecified (principal); E66.9 Obesity, unspecified; Z68.34 Body mass index [BMI] 34.0-34.9, adult; F17.210 Nicotine dependence, cigarettes, uncomplicated; Z88.0 Allergy status to penicillin; Z88.2 Allergy status to sulfonamides; Z88.8 Allergy status to other drugs, medicaments and biological substances
CPT/HCPCS: 99283

== ENCOUNTER 2019-08-08 00:32 | Emergency (ER) | payer BC ==
[2019-08-08] MEDS ORDERED: Lidocaine 1% with EPINEPHrine 1:100,000 20 ML MDV INJECT ONE (00:51)
[2019-08-08] MEDS ORDERED: Diphtheria,Pertussis(Acell),Tetanus Vaccine 0.5 ML Syringe IM ONE (00:56)
[2019-08-08] MEDS ORDERED: Octyl 2-Cyanoacrylate 1 Tube TOP ONE (01:17)
[2019-08-08] MEDS: Bacitracin Oint 1 GM U/D Packet TOP ONE (01:29)
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
[2019-08-08 01:48] VITALS: BP 111/81; PULSE 100
[2019-08-10] MEDS: Bacitracin Oint 1 GM U/D Packet TOP ONE (00:48)
== END 2019-08-08 01:51 | disposition home or self-care (01) ==
LOC: MW.ED 00:32
DX: S51.812A Laceration without foreign body of left forearm, initial encounter (principal); J45.909 Unspecified asthma, uncomplicated; E66.9 Obesity, unspecified; F17.210 Nicotine dependence, cigarettes, uncomplicated; Z68.36 Body mass index [BMI] 36.0-36.9, adult; Z23 Encounter for immunization; Z88.2 Allergy status to sulfonamides; Z88.0 Allergy status to penicillin; Z88.8 Allergy status to other drugs, medicaments and biological substances; W01.198A Fall on same level from slipping, tripping and stumbling with subsequent striking against other object, initial encounter
CPT/HCPCS: 12032; 90471; 90715; 99282; A9270; 12002; 99283

== ENCOUNTER 2019-10-17 13:20 | Emergency (ER) | payer BC ==
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
--- NOTE | 2019-10-17 14:32 | CR ---
Chest: 2 views of the chest were obtained. Comparison: No prior chest imaging is available. Heart size and mediastinum are normal. Lungs are clear with no acute parenchymal change. Bony structures are unremarkable. Impression: 1. Nothing acute is seen on 2 view chest x-ray. Diagnostic code #1 This report was dictated in MDT
[2019-10-17 18:13] VITALS: BP 117/85; PULSE 95
== END 2019-10-17 15:10 | disposition home or self-care (01) ==
LOC: MW.ED 13:20
DX: T75.1XXA Unspecified effects of drowning and nonfatal submersion, initial encounter (principal); E66.9 Obesity, unspecified; Z68.34 Body mass index [BMI] 34.0-34.9, adult; Z88.1 Allergy status to other antibiotic agents; Z88.0 Allergy status to penicillin; Z88.2 Allergy status to sulfonamides
CPT/HCPCS: 71046; 71046-26; 81025; 99285-25

== ENCOUNTER 2020-08-01 13:57 | Emergency (ER) | payer BC ==
[2020-08-01] MEDS ORDERED: Ketorolac 15 MG/ML SDV IM ONE ×2 (14:35→17:12)
[2020-08-01] MEDS ORDERED: Dextrose 5%-0.9% NaCl 1,000 ML IV SCH (15:00)
[2020-08-01 15:03] LABS: BLOOD UREA NITROGEN,BUN 9 mg/dL (7.0-18.0); CARBON DIOXIDE,CO2 26.6 mmol/L (21.0-32.0); CHLORIDE,CL 104 mmol/L (98-107); GLUCOSE RANDOM 107 mg/dL (74-106); POTASSIUM,K 3.9 mmol/L (3.5-5.1); SODIUM,NA 140 mmol/L (136-145)
--- NOTE | 2020-08-01 15:26 | CR ---
INDICATION: Chest pressure. COMPARISON: Chest x-ray dated 17 October 2019. FINDINGS: A single portable chest x-ray shows a normal cardiac silhouette. The lungs show no focal pulmonary opacities. Sharp pleural margins. No pneumothorax. IMPRESSION: No evidence of acute pulmonary abnormalities. Dictated by Melvin Whitley MD @ Aug 01 2020 3:23PM Signed by Dr. Melvin Whitley @ Aug 01 2020 3:25PM
[2020-08-01] MEDS ORDERED: Iopamidol 755 MG/ML 500 ML Multipack Bottle IVPUSH STA (16:58)
--- NOTE | 2020-08-01 17:06 | CT ---
INDICATION: Headaches. High blood pressure. TECHNIQUE: Non-contrast CT of the head is submitted. No comparisons. FINDINGS: The ventricles, sulci and gyri are of normal size, shape and contour. Midline structures are centrally located. No convincing evidence of intra- or extra-axial fluid collections. IMPRESSION: 1. No radiographic evidence of acute intracranial abnormalities. Please note that all CT scans at this facility use dose modulation, iterative reconstruction, and/or weight-based dosing when appropriate to reduce radiation dose to as low as reasonably achievable. Dictated by Puma Lance MD @ Aug 01 2020 5:04PM Signed by Dr. Puma Lance @ Aug 01 2020 5:05PM
[2020-08-01] MEDS ORDERED: Prochlorperazine 5 MG in Sodium Chloride 0.9% 50 ML IV ONE (17:12)
[2020-08-01] MEDS ORDERED: diphenhydrAMINE 50 MG/ML SDV IVPUSH ONE (17:12)
[2020-08-01] MEDS ORDERED: Ketorolac 15 MG/ML SDV IVPUSH ONE (17:26)
[2020-08-01] MEDS ORDERED: Prochlorperazine 10 MG/2 ML SDV IVPUSH ONE (17:30)
[2020-08-01] MEDS ORDERED: Prochlorperazine 10 MG/2 ML SDV ONE (17:32)
[2020-08-01] MEDS ORDERED: Acetaminophen 500 MG Tab PO ONE (17:37)
--- NOTE | 2020-08-01 17:44 | CT ---
DATE: 08/01/2020. CLINICAL HISTORY: Patient with severe headache. TECHNIQUE: Standard helical CT image acquisition through the head and neck was performed after intravenous contrast bolus enhancement. Multiplanar reconstructed images were performed and interpreted. COMPARISON: Head CT dated 05/20/2019. FINDINGS: The origins of the great vessels from the aortic arch are patent. The origins of the right and left vertebral arteries are patent. The common carotid arteries are patent. There is no significant stenosis at the origin of the right internal carotid artery. There is no significant stenosis at the origin of the left internal carotid artery. The rest of the cervical segments of the internal carotid arteries are patent up to their intracranial segments. The intracranial segments of the internal carotid arteries are patent. The cervical segments of the vertebral arteries are patent. The intracranial segments of the vertebral arteries are patent. The anterior and middle cerebral arteries are patent. The anterior communicating artery is visualized and within normal limits. The basilar trunk and posterior cerebral arteries are patent. The visualized lung apices are unremarkable 11 mm nodule within the anterior right lobe of the thyroid gland demonstrating peripheral enhancement and central hypodensity. There is mild grade 1 anterolisthesis C4 on C5 with an apparent small disc bulge. IMPRESSION: 1. No evidence of intracranial proximal large vessel occlusion, flow-limiting luminal stenosis, for cerebral aneurysm. 2. Patent cervical arterial vasculature without hemodynamically significant luminal stenosis. 3. 11 mm heterogeneous nodule within the right lobe of the thyroid gland. This could be further assessed with non urgent thyroid ultrasound in the outpatient setting. 4. Apparent mild grade 1 anterolisthesis of C4 on C5 with a small associated disc bulge, as above. Please note that all CT scans at this facility use dose modulation, iterative reconstruction, and/or weight-based dosing when appropriate to reduce radiation dose to as low as reasonably achievable. Dictated by Feliberto Shea MD @ Aug 02 2020 9:13AM Signed by Dr. Feliberto Shea @ Aug 02 2020 9:23AM
--- NOTE | 2020-08-01 17:57 | US ---
INDICATION: Elevated liver enzymes. TECHNIQUE: Ultrasound abdomen limited. Sonographic images of the right upper quadrant were obtained using chinchilla-scale and color Doppler images. COMPARISON: August 31, 2014. FINDINGS: Liver: Mildly enlarged measuring 20 cm in greatest dimension. Probable fatty infiltration. No masses. No intrahepatic biliary dilatation. Portal vein is patent with normal blood flow toward the liver. Gallbladder: Status post cholecystectomy. Common bile duct: 8 mm. Pancreas: Normal. Right kidney: Normal in size. Normal echotexture and cortex. No masses, stones, or hydronephrosis. Vasculature: Proximal abdominal aorta and IVC are normal. IMPRESSION: Mild hepatomegaly with probable fatty infiltration. Remainder of the exam is unremarkable. No other finding to explain elevated liver enzymes. Dictated by Surendra Renteria MD @ Aug 01 2020 5:48PM Signed by Dr. Surendra Renteria @ Aug 01 2020 5:54PM
--- NOTE | 2020-08-01 18:03 | EDM.PDOC ---
ED HPI GENERAL MEDICAL PROBLEM - General Chief Complaint: Chest Pain Stated Complaint: HIGH BLOOD PRESSURE Time Seen by Provider: 08/01/20 14:20 - History of Present Illness INITIAL COMMENTS - FREE TEXT/NARRATIVE: CHIEF COMPLAINT(S): Headache HISTORY OF PRESENT ILLNESS: This is a 29-year-old woman without any significant past medical history who comes to the emergency department with a chief complaint of headache. The patient states that she has a sick feeling and feels like she is going to blank out. She denies any syncope. She states that over the last 2 weeks every time she checks her blood pressure is elevated and then develops a headache. She states that she went to her primary care physician yesterday and prescribed her Imitrex for migraines. In discussion with her primary care physician they were can to treat the migraine before they treated the hypertension. She states that after taking Imitrex today the headache had resolved however it has returned now however mildly. She states that starting earlier today when she was sitting she started to develop chest pain which she cannot describe associated with a sensation that it was hard to breathe. She states that she started noticing the symptoms approximately 1 hour after taking Imitrex. In addition to this her associated symptoms are pressure in her toes and pain from her knee to her ankle and left armpit. She states that her pain is 1 out of 10. She states that after all this started she took her temperature at 97.5 because she felt warm. She denies any recent travel, recent surgery, prior history of DVT or PE. She states that she is adopted so she does not know her family history very well however there may be a history of aneurysm on her dad's side but there is no family history of sudden onset at young age. S he does not know any other past family history. She denies any personal history of CAD, CHF, aneurysm. She denies any Covid exposures. She denies any chills. She denies any head injury, neck injury, bowel incontinence, urinary incontinence, IV drug use, rash. Otherwise all ROS is negative REVIEW OF SYSTEMS: Constitutional: Denies fever, chills. Eyes: Denies eye pain Ears, Nose, Mouth, & Throat: Denies earache Cardiovascular: Positive for chest pain Respiratory: Positive for shortness of breath Gastrointestinal: Denies Nausea, vomiting, diarrhea, hematochezia, bowel incontinence Genitourinary: Denies hematuria, dysuria, vaginal bleeding, vaginal discharge, urinary incontinence Skin:Denies a rash MSK: Positive for bilateral leg pain and foot pressure Neurological: Positive for headache. Denies blurred vision, numbness, tingling, weakness Psychiatric: Denies depression PAST MEDICAL HISTORY: As per history of present illness and as reviewed below otherwise noncontributory. SURGICAL HISTORY: As per history of present illness and as reviewed below otherwise noncontributory. SOCIAL HISTORY: As per history of present illness and as reviewed below otherwise noncontributory. FAMILY HISTORY: As per history of present illness and as reviewed below otherwise noncontributory. EXAMINATION OF ORGAN SYSTEMS/BODY AREAS: Constitutional: Blood pressure was 156/91, heart rate 81, respiratory rate 16 with an oxygen saturation of 96% on room air. Temperature 36.2 General: Overall well-appearing woman who is in no acute distress Psychiatric: Odd appearing affect but is appropriately interactive and cooperative Eyes: No scleral icterus or conjunctival erythema pupils are equal round reactive to light. Extraocular movements intact. No proptosis. No vertical or horizontal nystagmus. ENMT: Moist mucous membranes. No pharyngeal erythema tongue protrudes midline. Uvula is midline. Neck was supple. No masses. Cardiovascular: Regular, rate, and rhythm. No gallops, murmurs, or rubs. Bilateral upper extremity pulses symmetric and intact. No peripheral edema. No JVD. Respiratory: Lungs clear to auscultation bilaterally. No wheezes, rales, or rhonchi. Gastrointestinal: Soft, non-tender, non-distended. Normoactive bowel sounds Genitourinary: No suprapubic tenderness Musculoskeletal: Normal range of motion. Skin: No lesions or abrasions. Neurological: AOx4. CN grossly intact. Stregth 5/5 in bilateral upper and lower extremity. Sensation is intact bilaterally in upper and lower extremity. Gait appears normal. Finger to nose, heel to chapman, rapid alternating movements intact. MEDICAL DECISION MAKING AND COURSE IN THE ED WITH INTERPRETATION/REVIEW OF DIAGNOSTIC STUDIES: This is a 29-year-old woman without any significant past medical history who comes to the emergency department with multiple complaints including headache and sensation of presyncope with associated indescribable chest pain with bilateral lower extremity pain who is a normal physical examination who is mildly hypertensive. Given the remote history of patient family history of aneurysm we will obtain CT head and CTA of the head and neck to evaluate for any abnormality. Will obtain CBC, BMP, TSH, T4, troponin, hCG, EKG, and chest x-ray. Differential remains broad including hyper/hypothyroidism, ACS, pneumonia, migraine, aneurysm. Is uncertain as to what is causing the patient's symptoms given the location and they are not congruent. We will provide the patient with Tylenol by mouth and D5 normal saline. EKG was obtained and is unremarkable. While getting labs and RN in room the patient had contacted her primary care physician who stated that her transaminases were elevated and recommended us to get a right upper quadrant ultrasound. The patient does have a history of cholecystectomy so cholecystitis is unlikely however we will obtain AST, ALT, total bilirubin and a right upper quadrant ultrasound. The radiological images were viewed by myself along with reading the report from the radiologist. CT head without contrast does not reveal any acute intracranial abnormality. CTA head and neck preliminary read reveals no evidence of intracranial proximal large vessel occlusion, flow-limiting stenosis or cerebral aneurysm. Chest x-ray does not reveal any acute cardiopulmonary process. Abdominal ultrasound limited reveals mild hepatomegaly with probable fatty infiltration otherwise unremarkable. After imaging I did provide the patient with Toradol, Compazine, Benadryl. We will reevaluate the patient. Under evaluation I did discuss results with the patient. At this time the patient had improvement of all of her symptoms. I did discuss her at this time is uncertain as to what is caused the patient symptoms however I do recommend follow-up with her primary care physician. I discussed with her strict return precautions. She was amenable to discharge at this time and had no further questions. Laboratory: CBC is unremarkable. BMP is unremarkable. AST is elevated at 107, ALT is 141, total bilirubin is 0.3. Troponin is negative. TSH is 2.30, and free T4 0.91. hCG is negative. DISPOSITION: The patient was discharged home in stable condition. The patient will follow up with primary care physician within 3 to 5 days CONDITION: Fair PROCEDURES: None FINAL IMPRESSION(S)/DIAGNOSES: 1. Acute headache 2. Acute chest pain, atypical 3. Acute bilateral leg pain, unknown etiology Sami Meehan M.D. - Related Data Allergies Allergy/AdvReac Type Severity Reaction Status Date / Time escitalopram [From Lexapro] Allergy Anaphylactic Verified 08/01/20 14:06 Shock Penicillins Allergy Other Verified 08/01/20 14:06 Sulfa (Sulfonamide Allergy Swelling Verified 08/01/20 14:06 Antibiotics) Home Meds: Home Meds SUMAtriptan [Imitrex] 25 mg PO DAILY 08/01/20 [History] Past Medical History - Past Health History Medical/Surgical History: Denies Medical/Surgical History HEENT History: Reports: None Cardiovascular History: Reports: None Respiratory History: Reports: Asthma, Other (See Below) Other Respiratory History: asthma as a child Gastrointestinal History: Reports: GERD Genitourinary History: Reports: Other (See Below) Other Genitourinary History: hx kidney failure in the past due to taking alcohol and pills "suicide attempt" 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: Reports: Musculoskeletal History: Reports: None Neurological History: Reports: Migraines Psychiatric History: Reports: Anxiety, Depression, Suicide Attempt Endocrine/Metabolic History: Reports: Obesity/BMI 30+ Hematologic History: Reports: None Immunologic History: Reports: None Oncologic (Cancer) History: Reports: None Dermatologic History: Reports: None - Infectious Disease History Infectious Disease History: Reports: None - Past Surgical History Head Surgeries/Procedures: Reports: None HEENT Surgical History: Reports: None Cardiovascular Surgical History: Reports: None GI Surgical History: Reports: Appendectomy, Cholecystectomy, EGD Female Surgical History: Reports: LEEP Other Female Surgeries/Procedures: 2014 and Feb 2016. HX of colposcopy Endocrine Surgical History: Reports: None Neurological Surgical History: Reports: None Musculoskeletal Surgical History: Reports: None Social & Family History - Family History Family Medical History: No Pertinent Family History - Tobacco Use Tobacco Use Status *Q: Current Every Day Tobacco User Years of Tobacco use: 10 Packs/Tins Daily: 2 - Caffeine Use Caffeine Use: Reports: None - Recreational Drug Use Recreational Drug Use: Yes Drug Use in Last 12 Months: Yes Recreational Drug Type: Reports: Marijuana/Hashish Recreational Drug Use Frequency: Rarely ED ROS GENERAL - Review of Systems Review Of Systems: See Below ED EXAM, GENERAL - Physical Exam Exam: See Below Course - Vital Signs Last Recorded V/S: Last Vital Signs Temp 36.2 C 08/01/20 14:06 Pulse 67 08/01/20 18:13 Resp 16 08/01/20 18:13 BP 138/96 H 08/01/20 18:13 Pulse Ox 96 08/01/20 18:13 - Orders/Labs/Meds Labs: Laboratory Tests 08/01/20 08/01/20 08/01/20 Range/Units 14:15 14:15 14:15 WBC 7.49 (4.0-11.0) K/uL RBC 4.82 (4.30-5.90) M/uL Hgb 14.7 (12.0-16.0) g/dL Hct 44.9 (36.0-46.0) % MCV 93.2 (80.0-98.0) fL MCH 30.5 (27.0-32.0) pg MCHC 32.7 (31.0-37.0) g/dL RDW Std Deviation 48.6 (28.0-62.0) fl RDW Coeff of Jarred 14 (11.0-15.0) % Plt Count 275 (150-400) K/uL MPV 10.30 (7.40-12.00) fL Neut % (Auto) 54.2 (48.0-80.0) % Lymph % (Auto) 33.9 (16.0-40.0) % [place] % (Auto) 9.3 (0.0-15.0) % Eos % (Auto) 1.9 (0.0-7.0) % Baso % (Auto) 0.7 (0.0-1.5) % Neut # (Auto) 4.1 (1.4-5.7) K/uL Lymph # (Auto) 2.5 H (0.6-2.4) K/uL [place]man # (Auto) 0.7 (0.0-0.8) K/uL Eos # (Auto) 0.1 (0.0-0.7) K/uL Baso # (Auto) 0.1 (0.0-0.1) K/uL Nucleated RBC % 0.0 /100WBC Nucleated RBCs # 0 K/uL Sodium 140 (136-145) mmol/L Potassium 3.9 (3.5-5.1) mmol/L Chloride 104 (98-107) mmol/L Carbon Dioxide 26.6 (21.0-32.0) mmol/L BUN 9 (7.0-18.0) mg/dL Creatinine 0.7 (0.6-1.0) mg/dL Est Cr Clr Drug Dosing 104.78 mL/min Estimated GFR (MDRD) > 60.0 ml/min Glucose 107 H (74-106) mg/dL Calcium 9.4 (8.5-10.1) mg/dL Magnesium 2.1 (1.8-2.4) mg/dL Total Bilirubin (0.2-1.0) mg/dL AST (15-37) IU/L ALT (14-63) IU/L Alkaline Phosphatase (46-116) U/L Troponin I < 0.050 (0.000-0.056) ng/mL Free T4 0.91 (0.76-1.46) ng/dL TSH 3rd Generation 2.30 (0.36-3.74) uIU/mL HCG, Qual NEGATIVE (NEG) 08/01/20 Range/Units 14:15 WBC (4.0-11.0) K/uL RBC (4.30-5.90) M/uL Hgb (12.0-16.0) g/dL Hct (36.0-46.0) % MCV (80.0-98.0) fL MCH (27.0-32.0) pg MCHC (31.0-37.0) g/dL RDW Std Deviation (28.0-62.0) fl RDW Coeff of Jarred (11.0-15.0) % Plt Count (150-400) K/uL MPV (7.40-12.00) fL Neut % (Auto) (48.0-80.0) % Lymph % (Auto) (16.0-40.0) % [place] % (Auto) (0.0-15.0) % Eos % (Auto) (0.0-7.0) % Baso % (Auto) (0.0-1.5) % Neut # (Auto) (1.4-5.7) K/uL Lymph # (Auto) (0.6-2.4) K/uL [place]utsman # (Auto) (0.0-0.8) K/uL Eos # (Auto) (0.0-0.7) K/uL Baso # (Auto) (0.0-0.1) K/uL Nucleated RBC % /100WBC Nucleated RBCs # K/uL Sodium (136-145) mmol/L Potassium (3.5-5.1) mmol/L Chloride (98-107) mmol/L Carbon Dioxide (21.0-32.0) mmol/L BUN (7.0-18.0) mg/dL Creatinine (0.6-1.0) mg/dL Est Cr Clr Drug Dosing mL/min Estimated GFR (MDRD) ml/min Glucose (74-106) mg/dL Calcium (8.5-10.1) mg/dL Magnesium (1.8-2.4) mg/dL Total Bilirubin 0.3 (0.2-1.0) mg/dL AST 107 H (15-37) IU/L ALT 141 H (14-63) IU/L Alkaline Phosphatase 114 (46-116) U/L Troponin I (0.000-0.056) ng/mL Free T4 (0.76-1.46) ng/dL TSH 3rd Generation (0.36-3.74) uIU/mL HCG, Qual (NEG) Meds: Medications Discontinued Medications Generic Name Dose Route Start Last Admin Trade Name Freq PRN Reason Stop Dose Admin Diphenhydramine HCl 50 mg 08/01/20 17:12 08/01/20 17:27 Diphenhydramine 50 Mg/Ml Sdv IVPUSH 08/01/20 17:13 50 mg ONETIME ONE Administration Dextrose/Sodium Chloride 1,000 mls @ 999 mls/hr 08/01/20 15:00 08/01/20 15:00 Dextrose 5%-Normal Saline IV 999 mls/hr ASDIRECTED ZAID Administration Iopamidol 100 ml 08/01/20 16:58 08/01/20 16:59 Iopamidol 755 Mg/Ml 500 Ml Multipack Bottle IVPUSH 08/01/20 16:59 100 ml ONETIME STA Administration Ketorolac Tromethamine 15 mg 08/01/20 14:35 08/01/20 15:03 Ketorolac 15 Mg/Ml Sdv IM 08/01/20 14:36 Not Given ONETIME ONE Ketorolac Tromethamine 15 mg 08/01/20 17:26 08/01/20 17:26 Ketorolac 15 Mg/Ml Sdv IVPUSH 08/01/20 17:27 15 mg ONETIME ONE Administration Prochlorperazine Edisylate 5 mg 08/01/20 17:30 08/01/20 17:37 Prochlorperazine 10 Mg/2 Ml Sdv IVPUSH 08/01/20 17:31 5 mg ONETIME ONE Administration Prochlorperazine Edisylate Confirm 08/01/20 17:32 08/01/20 17:40 Prochlorperazine 10 Mg/2 Ml Sdv Administered 08/01/20 17:33 Not Given Dose 10 mg .ROUTE .STK-MED ONE Departure - Departure Time of Disposition: 18:03 Disposition: Home, Self-Care 01 Condition: Fair Clinical Impression: Migraine - Discharge Information *PRESCRIPTION DRUG MONITORING PROGRAM REVIEWED*: No *COPY OF PRESCRIPTION DRUG MONITORING REPORT IN PATIENT ABDOULAYE: No Instructions: Recurrent Migraine Headache, [id number] Referrals: PCP,None [Primary Care Provider] - Forms: ED Department Discharge Additional Instructions: You evaluate today on an emergent basis. At that time it is uncertain as to what is causing your symptoms however it could be secondary to Imitrex. Your headache did improve with medication administration today and your CT scans were negative. In discussion with you and your elevated liver enzymes and your primary care physician wanting a right upper quadrant ultrasound we did complete the ultrasound which did reveal a fatty liver. At this time I do recommend that you follow-up with Dr. Canela for your hypertension and continued evaluation. If you have any worsening or new symptoms please return to the emergency department. [facility] [address] [place] [address] [place] [address] The patient is informed of any results of their evaluation and diagnostic workup and all questions are answered. They are given discharge instructions and return precautions. The patient is stable for discharge. The patient states they understand and agree with the plan and that they will return if their symptoms get worse or if they have any new concerns. The following information is given to patients seen in the emergency department who are being discharged to home. This information is to outline your options for follow-up care. We provide all patients seen in our emergency department with a follow-up referral. The need for follow-up, as well as the timing and circumstances, are variable depending upon the specifics of your emergency department visit. If you don't have a primary care physician on staff, we will provide you with a referral. We always advise you to contact your personal physician following an emergency department visit to inform them of the circumstance of the visit and for follow-up with them and/or the need for any referrals to a consulting specialist. The emergency department will also refer you to a specialist when appropriate. This referral assures that you have the opportunity for follow-up care with a specialist. All of these measure are taken in an effort to provide you with optimal care, which includes your follow-up. Under all circumstances we always encourage you to contact your private physician who remains a resource for coordinating your care. When calling for follow-up care, please make the office aware that this follow-up is from your recent emergency room visit. If for any reason you are refused follow-up, please contact the [facility] Emergency Department at and asked to speak to the emergency department charge nurse. Sepsis Event Note (ED) - Evaluation Sepsis Screening Result: No Definite Risk
[2020-08-01 18:15] VITALS: BP 138/96; PULSE 67
--- NOTE | 2020-08-01 20:12 | PCM.EKG ---
#1 Interpretation EKG Date: 08/01/20 Time: 14:00 Rhythm: NSR Rate (Beats/Min): 78 Kiln: Normal P-Wave: Present QRS: Normal ST-T: Normal QT: Normal Comparison: No Change (02/21/19) EKG Interpretation Comments: SinuS Rhythm
== END 2020-08-01 18:29 | disposition home or self-care (01) ==
LOC: MW.ED 13:57
DX: G43.909 Migraine, unspecified, not intractable, without status migrainosus (principal); R07.89 Other chest pain; M79.661 Pain in right lower leg; M79.662 Pain in left lower leg; J45.909 Unspecified asthma, uncomplicated; E66.9 Obesity, unspecified; Z68.41 Body mass index [BMI] 40.0-44.9, adult; Z72.0 Tobacco use; Z88.8 Allergy status to other drugs, medicaments and biological substances; Z88.0 Allergy status to penicillin; Z88.2 Allergy status to sulfonamides; Z79.899 Other long term (current) drug therapy
CPT/HCPCS: 36415; 70450; 70496; 70498; 71045; 76705; 80048; 82247; 83735; 84075; 84439; 84443; 84450; 84460; 84484; 84703; 85025; 93005; 96374; 96375; 99285; J0780; J1200; J1885; J7042; Q9967

== ENCOUNTER 2020-10-13 01:40 | Emergency (ER) | payer BC, MEDICAID ==
[2020-10-13 02:11] VITALS: BP 128/74; PULSE 121
[2020-10-13] MEDS ORDERED: Ketorolac 15 MG/ML SDV IM ONE (02:11)
--- NOTE | 2020-10-13 02:51 | CR ---
For Patients: As a result of the Century Cures Act, medical imaging exams and procedure reports are released immediately into your electronic medical record. You may view this report before your referring provider. If you have questions, please contact your health care provider. INDICATION: Ankle pain following fall TECHNIQUE: Ankle radiograph 3 views left COMPARISON: None FINDINGS: Bone: No acute fractures or aggressive bone lesions are identified. Joint: The ankle mortise joint and the visualized hindfoot joints are unremarkable in appearance. No significant ankle effusion is seen. Soft tissue: The Kager fat pad and the Achilles` tendon is normal in appearance. No radiopaque foreign bodies are seen. IMPRESSION: 1. No acute osseous injuries or abnormalities are noted. Dictated by: Naeem Rodriguez MD @ 10/13/2020 02:49:59 (Electronically Signed)
--- NOTE | 2020-10-13 02:53 | CR ---
For Patients: As a result of the Century Cures Act, medical imaging exams and procedure reports are released immediately into your electronic medical record. You may view this report before your referring provider. If you have questions, please contact your health care provider. INDICATION: Foot pain following fall TECHNIQUE: Foot radiograph 3 views left COMPARISON: 07/19/2018 FINDINGS: Bone: No acute fractures or aggressive bone lesions are identified. Joint: The visualized hindfoot, midfoot, and forefoot joints are unremarkable in appearance. No significant ankle effusion is seen. Soft tissue: Unremarkable. No radiopaque foreign bodies are seen. IMPRESSION: 1. No acute osseous injuries or abnormalities are noted. Dictated by: Naeem Rodriguez MD @ 10/13/2020 02:51:50 (Electronically Signed)
--- NOTE | 2020-10-13 03:04 | EDM.PDOC ---
ED HPI GENERAL MEDICAL PROBLEM - General Chief Complaint: Lower Extremity Injury/Pain Stated Complaint: RIGHT ANKLE INJURY Time Seen by Provider: 10/13/20 02:03 - History of Present Illness INITIAL COMMENTS - FREE TEXT/NARRATIVE: CHIEF COMPLAINT(S): Left ankle injury HISTORY OF PRESENT ILLNESS: This is a 29-year-old woman without any significant past medical history who presents to the emergency department with a chief complaint of left ankle injury. The patient states that they were drinking prior to this. He states she was walking when she rolled her left ankle. She states that she did not hit her head or have any other injury. He states that she is experiencing 8 out of 10 pain in her left ankle which is described as throbbing. She denies any radiation of this pain. She states that she is having difficulty with putting weight on it and is unable to take more than 3 steps. She was brought in on a wheelchair. She denies any numbness, tingling. She states that there is some swelling. She has not yet taken any pain medication therefore there is no relieving factors. Pain is exacerbated by walking on it. REVIEW OF SYSTEMS: Skin:Denies a rash MSK: Positive for left ankle pain/injury Neurological: Denies numbness, tingling PAST MEDICAL HISTORY: As per history of present illness and as reviewed below otherwise noncontributory. SURGICAL HISTORY: As per history of present illness and as reviewed below otherwise noncontributory. SOCIAL HISTORY: As per history of present illness and as reviewed below otherwise noncontributory. FAMILY HISTORY: As per history of present illness and as reviewed below otherwise noncontributory. EXAMINATION OF ORGAN SYSTEMS/BODY AREAS: Constitutional: Blood pressure is 128/74, heart rate 121, respiratory rate 14 with an oxygen saturation of 100% on room air. Temperature 36.6 General: Young woman who is in no acute distress. Smells of alcohol. Psychiatric: Appropriate mood and affect. Eyes: No scleral icterus or conjunctival erythema ENMT: Moist mucous membranes. No pharyngeal erythema Cardiovascular: Regular, rate, and rhythm. No gallops, murmurs, or rubs. Bilateral upper extremity and lower extremity pulses symmetric and intact. Respiratory: Lungs clear to auscultation bilaterally. No wheezes, rales, or rhonchi. Musculoskeletal: Patient has medial and lateral malleoli or tenderness of the left ankle. There is base of the fifth metatarsal tenderness of the left foot. There is moderate amount of swelling without any ecchymosis. The patient is unable to bear weight. Skin: No lesions or abrasions. Neurological: Alert, GCS 15 distal sensation is intact MEDICAL DECISION MAKING AND COURSE IN THE ED WITH INTERPRETATION/REVIEW OF DIAGNOSTIC STUDIES: This is a 29-year-old woman without any significant past medical history who comes to the emergency department while intoxicated with a left ankle injury who is unable to bear weight on her left ankle. At this time we will provide the patient with Toradol for pain relief. We will also obtain a left ankle and left foot x-ray. We will provide the patient with ice for symptomatic relief also. I do not believe any further work-up is indicated. The radiological images were viewed by myself along with reading the report from the radiologist. Left ankle x-ray does not reveal any acute fracture or dislocation. Left foot x-ray does not reveal any fracture or dislocation. On reevaluation after imaging the patient did report improvement in her pain. However she continues to not be able to walk more than 3 steps while in the emergency department. At this time I do suspect a grade 2 or 3 ankle sprain. The patient is neurovascularly intact. We will provide the patient with a walking boot and crutches. I did discuss strict return precautions. She is in discharge at this time and had no further questions. She is to follow-up with her orthopedic surgeon in 5 to 7 days DISPOSITION: The patient was discharged home in stable condition. The patient will follow up with orthopedic in 5 to 7 days CONDITION: Fair PROCEDURES: None FINAL IMPRESSION(S)/DIAGNOSES: 1. Acute left ankle grade 2-3 ankle sprain DME: Left walking boot Indication: Grade 2-3 ankle sprain, unable to bear weight benefit: Immobilization Duration: Until follow-up with orthopedics DME: Crutches Indication: Grade 2-3 ankle sprain, difficulty with walking Benefit: Assist patient with ambulation given walking boot Duration: Until follow-up with orthopedics Sami Meehan M.D. Left Ankle Pain Score (Numeric/FACES): 8 - Related Data Allergies Allergy/AdvReac Type Severity Reaction Status Date / Time escitalopram [From Lexapro] Allergy Anaphylactic Verified 10/13/20 02:08 Shock Penicillins Allergy Other Verified 10/13/20 02:08 Sulfa (Sulfonamide Allergy Swelling Verified 10/13/20 02:08 Antibiotics) Home Meds: Home Meds SUMAtriptan [Imitrex] 25 mg PO ASDIRECTED PRN 08/01/20 [History] lisinopriL [Lisinopril] 10 mg PO DAILY 10/13/20 [History] Past Medical History - Past Health History Medical/Surgical History: Denies Medical/Surgical History HEENT History: Reports: None Cardiovascular History: Reports: High Cholesterol Respiratory History: Reports: Asthma, Other (See Below) Other Respiratory History: asthma as a child Gastrointestinal History: Reports: GERD Genitourinary History: Reports: Other (See Below) Other Genitourinary History: hx kidney failure in the past due to taking alcohol and pills "suicide attempt" 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: Musculoskeletal History: Reports: None Neurological History: Reports: Migraines Psychiatric History: Reports: Anxiety, Depression, Suicide Attempt Endocrine/Metabolic History: Reports: Obesity/BMI 30+ Hematologic History: Reports: None Immunologic History: Reports: None Oncologic (Cancer) History: Reports: None Dermatologic History: Reports: None - Infectious Disease History Infectious Disease History: Reports: None - Past Surgical History Head Surgeries/Procedures: Reports: None HEENT Surgical History: Reports: None Cardiovascular Surgical History: Reports: None GI Surgical History: Reports: Appendectomy, Cholecystectomy, EGD Female Surgical History: Reports: LEEP Other Female Surgeries/Procedures: 2014 and Feb 2016. HX of colposcopy Endocrine Surgical History: Reports: None Neurological Surgical History: Reports: None Musculoskeletal Surgical History: Reports: None Social & Family History - Family History Family Medical History: No Pertinent Family History - Caffeine Use Caffeine Use: Reports: None - Recreational Drug Use Recreational Drug Use: Yes Drug Use in Last 12 Months: Yes Recreational Drug Type: Reports: Marijuana/Hashish Recreational Drug Use Frequency: Daily Review of Systems - Review of Systems Review Of Systems: See Below ED EXAM, GENERAL - Physical Exam Exam: See Below Course - Vital Signs Last Recorded V/S: Last Vital Signs Temp 36.6 C 10/13/20 02:02 Pulse 121 H 10/13/20 02:02 Resp 14 10/13/20 02:02 BP 128/74 10/13/20 02:02 Pulse Ox 118 H 10/13/20 02:02 - Orders/Labs/Meds Meds: Medications Discontinued Medications Generic Name Dose Route Start Last Admin Trade Name Lisbeth PRN Reason Stop Dose Admin Ketorolac Tromethamine 15 mg 10/13/20 02:11 10/13/20 02:23 Ketorolac 15 Mg/Ml Sdv IM 10/13/20 02:12 15 mg ONETIME ONE Administration Departure - Departure Time of Disposition: 03:03 Disposition: Home, Self-Care 01 Condition: Fair Clinical Impression: Ankle sprain - Discharge Information *PRESCRIPTION DRUG MONITORING PROGRAM REVIEWED*: No *COPY OF PRESCRIPTION DRUG MONITORING REPORT IN PATIENT ABDOULAYE: No Instructions: Crutch Use, Adult, [id number], Ankle Sprain, [id number] Referrals: Armando Logan MD [Primary Care Provider] - Forms: ED Department Discharge Additional Instructions: You were evaluated today on an emergent basis. At this time your images did not reveal any fractures. Given that you are unable to walk 3 steps in the [facility] we will place you in a walking boot. I do recommend that you keep your left lower leg elevated while sitting, use ice 20 minutes 4 times a day and alternate with Tylenol and Motrin for pain relief. I do recommend that she follow-up with orthopedics in 5 to 7 days. They may want to repeat imaging. Return to the emergency department if you have any new or worsening symptoms. [facility] [address], [address] [place] [address] The patient is informed of any results of their evaluation and diagnostic workup and all questions are answered. They are given discharge instructions and return precautions. The patient is stable for discharge. The patient states they understand and agree with the plan and that they will return if their symptoms get worse or if they have any new concerns. The following information is given to patients seen in the emergency department who are being discharged to home. This information is to outline your options for follow-up care. We provide all patients seen in our emergency department with a follow-up referral. The need for follow-up, as well as the timing and circumstances, are variable depending upon the specifics of your emergency department visit. If you don't have a primary care physician on staff, we will provide you with a referral. We always advise you to contact your personal physician following an emergency department visit to inform them of the circumstance of the visit and for follow-up with them and/or the need for any referrals to a consulting specialist. The emergency department will also refer you to a specialist when appropriate. This referral assures that you have the opportunity for follow-up care with a specialist. All of these measure are taken in an effort to provide you with optimal care, which includes your follow-up. Under all circumstances we always encourage you to contact your private physician who remains a resource for coordinating your care. When calling for follow-up care, please make the office aware that this follow-up is from your recent emergency room visit. If for any reason you are refused follow-up, please contact the [facility] Emergency Department at and asked to speak to the emergency department charge nurse. Sepsis Event Note (ED) - Evaluation Sepsis Screening Result: No Definite Risk
== END 2020-10-13 03:21 | disposition home or self-care (01) ==
LOC: MW.ED 01:40
DX: S93.402A Sprain of unspecified ligament of left ankle, initial encounter (principal); E66.9 Obesity, unspecified; Z88.0 Allergy status to penicillin; Z88.2 Allergy status to sulfonamides; Z88.8 Allergy status to other drugs, medicaments and biological substances; Z88.5 Allergy status to narcotic agent; Z68.36 Body mass index [BMI] 36.0-36.9, adult; Z79.899 Other long term (current) drug therapy; X50.1XXA Overexertion from prolonged static or awkward postures, initial encounter
CPT/HCPCS: 73610; 73630; 96372; 99283; J1885

== ENCOUNTER 2021-02-14 02:40 | Emergency (ER) | payer BC ==
[2021-02-14 02:59] VITALS: BP 139/87; PULSE 96
--- NOTE | 2021-02-14 03:06 | EDM.PDOC ---
ED HPI GENERAL MEDICAL PROBLEM - General Chief Complaint: General Stated Complaint: MEDICAL CLEARANCE Time Seen by Provider: 02/14/21 02:44 Source of Information: Reports: Patient History Limitations: Reports: No Limitations - History of Present Illness INITIAL COMMENTS - FREE TEXT/NARRATIVE: Patient is a 30-year-old female brought in by police custody for medical clearance. On exam patient denies any complaints does not 1 be seen and treated. Patient vital signs reviewed and patient was well on exam but is tearful but will be discharged to police custody. - Related Data Allergies Allergy/AdvReac Type Severity Reaction Status Date / Time escitalopram [From Lexapro] Allergy Anaphylactic Verified 02/14/21 02:50 Shock Penicillins Allergy Other Verified 02/14/21 02:50 Sulfa (Sulfonamide Allergy Swelling Verified 02/14/21 02:50 Antibiotics) Home Meds: Home Meds SUMAtriptan [Imitrex] 25 mg PO ASDIRECTED PRN 08/01/20 [History] lisinopriL [Lisinopril] 10 mg PO DAILY 10/13/20 [History] Past Medical History - Past Health History Medical/Surgical History: Denies Medical/Surgical History HEENT History: Reports: None Cardiovascular History: Reports: Hypertension Respiratory History: Reports: Asthma Other Respiratory History: asthma as a child Gastrointestinal History: Reports: GERD Genitourinary History: Reports: Other (See Below) Other Genitourinary History: hx kidney failure in the past due to taking alcohol and pills "suicide attempt" 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: Musculoskeletal History: Reports: None Neurological History: Reports: Migraines Psychiatric History: Reports: Anxiety, Depression, Suicide Attempt Endocrine/Metabolic History: Reports: Obesity/BMI 30+ 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 HX of colposcopy Endocrine Surgical History: Reports: None Neurological Surgical History: Reports: None Musculoskeletal Surgical History: Reports: None Social & Family History - Family History Family Medical History: No Pertinent Family History - Caffeine Use Caffeine Use: Reports: None - Recreational Drug Use Recreational Drug Use: No ED ROS GENERAL - Review of Systems Review Of Systems: See Below Constitutional: Reports: No Symptoms HEENT: Reports: No Symptoms Respiratory: Reports: No Symptoms Cardiovascular: Reports: No Symptoms Endocrine: Reports: No Symptoms GI/Abdominal: Reports: No Symptoms : Reports: No Symptoms Musculoskeletal: Reports: No Symptoms Skin: Reports: No Symptoms Neurological: Reports: No Symptoms Psychiatric: Reports: No Symptoms Hematologic/Lymphatic: Reports: No Symptoms Immunologic: Reports: No Symptoms ED EXAM, GENERAL - Physical Exam Exam: See Below Exam Limited By: No Limitations General Appearance: Alert, WD/WN Respiratory/Chest: No Respiratory Distress Extremities: Normal Inspection Neurological: Alert, Oriented, Normal Cognition, Normal Gait Course - Vital Signs Last Recorded V/S: Last Vital Signs Temp 96.8 F L 02/14/21 02:50 Pulse 96 02/14/21 02:50 Resp 18 02/14/21 02:50 BP 139/87 02/14/21 02:50 Pulse Ox 97 02/14/21 02:50 Departure - Departure Time of Disposition: 03:04 Disposition: Home, Self-Care 01 Condition: Good Clinical Impression: General medical exam - Discharge Information *PRESCRIPTION DRUG MONITORING PROGRAM REVIEWED*: Not Applicable *COPY OF PRESCRIPTION DRUG MONITORING REPORT IN PATIENT ABDOULAYE: Not Applicable Instructions: Medical Screening Exam Referrals: PCP,None [Primary Care Provider] - Additional Instructions: You were seen today for medical clearance. You denied any complaints did not want be seen or treated for anything. He denies any be any distress if you have any concerns or complaints please feel free to return to the ED otherwise follow-up with your primary care physician. The following information is given to patients seen in the emergency department who are being discharged to home. This information is to outline your options for follow-up care. We provide all patients seen in our emergency department with a follow-up referral. The need for follow-up, as well as the timing and circumstances, are variable depending upon the specifics of your emergency department visit. If you don't have a primary care physician on staff, we will provide you with a referral. We always advise you to contact your personal physician following an emergency department visit to inform them of the circumstance of the visit and for follow-up with them and/or the need for any referrals to a consulting specialist. The emergency department will also refer you to a specialist when appropriate. This referral assures that you have the opportunity for follow-up care with a specialist. All of these measure are taken in an effort to provide you with optimal care, which includes your follow-up. Under all circumstances we always encourage you to contact your private physician who remains a resource for coordinating your care. When calling for follow-up care, please make the office aware that this follow-up is from your recent emergency room visit. If for any reason you are refused follow-up, please contact the [facility] Emergency Department at and asked to speak to the emergency department charge nurse. Please follow up with your primary care physician. If you do not have a primary care physician, see below: [facility] [address] [place] [id number] [facility] [address] [place] [id number] Sepsis Event Note (ED) - Evaluation Sepsis Screening Result: No Definite Risk - Focused Exam Vital Signs: Vital Signs Temp Pulse Resp BP Pulse Ox 02/14/21 02:50 96.8 F L 96 18 139/87 97 - Assessment/Plan Plan: Patient is a 30-year-old female presents today for medical clearance. Patient on exam has no complaints not will be seen and treated for anything as well. Patient vital signs reviewed. Patient be discharged police custody.
== END 2021-02-14 03:09 | disposition home or self-care (01) ==
LOC: MW.ED 02:40
DX: Z13.89 Encounter for screening for other disorder (principal); I10 Essential (primary) hypertension; E66.9 Obesity, unspecified; Z68.33 Body mass index [BMI] 33.0-33.9, adult; Z88.0 Allergy status to penicillin; Z88.2 Allergy status to sulfonamides; Z88.8 Allergy status to other drugs, medicaments and biological substances; Z79.899 Other long term (current) drug therapy
CPT/HCPCS: 99283

== ENCOUNTER 2021-03-09 01:43 | Emergency (ER) | payer BC ==
[2021-03-09 02:09] VITALS: BP 143/93; PULSE 94
--- NOTE | 2021-03-09 02:13 | EDM.PDOC ---
ED HPI GENERAL MEDICAL PROBLEM - General Chief Complaint: General Stated Complaint: HIGH BLOOD PRESSURE, DIZZY Time Seen by Provider: 03/09/21 01:45 - History of Present Illness INITIAL COMMENTS - FREE TEXT/NARRATIVE: History of present illness: [] Patient reports that she has had tingling in her hands. She also has some pain in her chest that happened less than an hour before she got here and lasted for 20 minutes. She said that she felt like might be an anxiety attack. Patient feels stressed out and even at some point somewhat depressed. She has 3 small children at home. She went through a divorce in January. She has a father that helps some and siblings it helps some but she takes in children to her home to care for them along with her children to help support her self. She also works at night and her children are taken care of by a sibling. Patient's totally stressed out but says she is not suicidal or homicidal or having any idea that she might do anything to hurt anybody or herself. She does not have any psychotic features. Review of systems: As per history of present illness and below otherwise all systems reviewed and negative. Past medical history: As per history of present illness and as reviewed below otherwise noncontributory. Surgical history: As per history of present illness and as reviewed below otherwise noncontributory. Social history: No reported history of drug or alcohol abuse. Family history: As per history of present illness and as reviewed below otherwise noncontributory. Physical exam: Constitutional - well developed, well-nourished and in no acute distress HEENT - normocephalic, no evidence of trauma - external nose and mouth normal - no mass in neck and no JVD - mucosae moist EYES - full EOM, PERRL, no icterus - no evidence of inflammation, injection, or drainage Respiratory - no respiratory distress, equal bilateral expansion, lungs clear to auscultation and no abnormal lung sounds Cardiovascular - Regular Rhythm with S1 and S2 appreciated and no murmur, gallop or rub. GI - abdomen soft without distension or organomegaly - normal bowel sounds - no guard or rebound Musculoskeletal no gross deformity of long bones or joints - no tenderness, swelling or edema Neurologic - Alert and oriented times four - CN II-XII grossly intact - motor sensory and coordination symmetrically normal Psychiatric - appropriate mood and affect with normal thought content Hematologic - No petechiae or purpura - mucosa appropriate color and sclera not pale - normal nail bed color and refill Integument - no rash or evidence of trauma - normal turgor Diagnostics: [] Therapeutics: [] Impression: [] Plan: [] Definitive disposition and diagnosis as appropriate pending reevaluation and review of above. Chest Pain Score (Numeric/FACES): 8 - Related Data Allergies Allergy/AdvReac Type Severity Reaction Status Date / Time escitalopram [From Lexapro] Allergy Anaphylactic Verified 03/09/21 02:09 Shock Penicillins Allergy Other Verified 03/09/21 02:09 Sulfa (Sulfonamide Allergy Swelling Verified 03/09/21 02:09 Antibiotics) Home Meds: Home Meds lisinopriL [Lisinopril] 10 mg PO DAILY 10/13/20 [History] ALPRAZolam [Xanax] 0.25 mg PO TID PRN #15 tab 03/09/21 [Rx] Past Medical History - Past Health History Medical/Surgical History: Denies Medical/Surgical History HEENT History: Reports: None Cardiovascular History: Reports: Hypertension Respiratory History: Reports: Asthma Other Respiratory History: asthma as a child Gastrointestinal History: Reports: GERD Genitourinary History: Reports: Other (See Below) Other Genitourinary History: hx kidney failure in the past due to taking alcohol and pills "suicide attempt" [employer] History: Reports: Musculoskeletal History: Reports: None Neurological History: Reports: Migraines Psychiatric History: Reports: Anxiety, Depression, Suicide Attempt Endocrine/Metabolic History: Reports: Obesity/BMI 30+ Insulin Pump Model and Wan Support Specialist: N/A Hematologic History: Reports: None Immunologic History: Reports: None Oncologic (Cancer) History: Reports: None Dermatologic History: Reports: None - Infectious Disease History Infectious Disease History: Reports: None - Past Surgical History Head Surgeries/Procedures: Reports: None HEENT Surgical History: Reports: None Cardiovascular Surgical History: Reports: None GI Surgical History: Reports: Appendectomy, Cholecystectomy, EGD Female Surgical History: Reports: LEEP Other Female Surgeries/Procedures: 2014 and Feb 2016. HX of colposcopy Endocrine Surgical History: Reports: None Neurological Surgical History: Reports: None Musculoskeletal Surgical History: Reports: None Social & Family History - Family History Family Medical History: No Pertinent Family History - Caffeine Use Caffeine Use: Reports: None ED ROS GENERAL - Review of Systems Review Of Systems: Comprehensive ROS is negative, except as noted in HPI. ED EXAM, GENERAL - Physical Exam Exam: See Below Free Text/Narrative:: My physical exam is in the HPI #1 Interpretation EKG Interpretation Comments: EKG done 03/09/2021 at 1:56 AM shows sinus rhythm heart rate 96 CT 140 axis -[address] and T compared to 08/01/2020 no change impression no acute injury Course - Vital Signs Last Recorded V/S: Last Vital Signs Temp 36.6 C 03/09/21 02:05 Pulse 94 03/09/21 02:05 Resp 16 03/09/21 02:05 BP 143/93 H 03/09/21 02:05 Pulse Ox 95 03/09/21 02:05 - Orders/Labs/Meds Labs: Laboratory Tests 03/09/21 03/09/21 03/09/21 Range/Units 01:53 02:20 02:20 WBC 8.54 (4.0-11.0) K/uL RBC 4.88 (4.30-5.90) M/uL Hgb 15.8 (12.0-16.0) g/dL Hct 46.3 H (36.0-46.0) % MCV 94.9 (80.0-98.0) fL MCH 32.4 H (27.0-32.0) pg MCHC 34.1 (31.0-37.0) g/dL RDW Std Deviation 49.0 (28.0-62.0) fl RDW Coeff of Jarred 14 (11.0-15.0) % Plt Count 258 (150-400) K/uL MPV 10.50 (7.40-12.00) fL Neut % (Auto) 62.9 (48.0-80.0) % Lymph % (Auto) 28.9 (16.0-40.0) % [place] % (Auto) 6.1 (0.0-15.0) % Eos % (Auto) 1.4 (0.0-7.0) % Baso % (Auto) 0.7 (0.0-1.5) % Neut # (Auto) 5.4 (1.4-5.7) K/uL Lymph # (Auto) 2.5 H (0.6-2.4) K/uL [place] # (Auto) 0.5 (0.0-0.8) K/uL Eos # (Auto) 0.1 (0.0-0.7) K/uL Baso # (Auto) 0.1 (0.0-0.1) K/uL Nucleated RBC % 0.0 /100WBC Nucleated RBCs # 0 K/uL Sodium 140 (136-145) mmol/L Potassium 3.5 (3.5-5.1) mmol/L Chloride 101 (98-107) mmol/L Carbon Dioxide 22.2 (21.0-32.0) mmol/L BUN 7 (7.0-18.0) mg/dL Creatinine 0.6 (0.6-1.0) mg/dL Est Cr Clr Drug Dosing 126.01 mL/min Estimated GFR (MDRD) > 60.0 ml/min Glucose 98 (74-106) mg/dL POC Glucose 101 H (70-99) mg/dL Calcium 8.9 (8.5-10.1) mg/dL Total Bilirubin 0.5 (0.2-1.0) mg/dL AST 204 H (15-37) IU/L ALT 215 H (14-63) IU/L Alkaline Phosphatase 99 (46-116) U/L Troponin I < 0.050 (0.000-0.056) ng/mL Total Protein 8.7 H (6.4-8.2) g/dL Albumin 3.7 (3.4-5.0) g/dL Globulin 5.0 H (2.6-4.0) g/dL Albumin/Globulin Ratio 0.7 L (0.9-1.6) Meds: Medications Discontinued Medications Generic Name Dose Route Start Last Admin Trade Name Freq PRN Reason Stop Dose Admin Alprazolam 0.25 mg 03/09/21 02:24 03/09/21 02:48 Alprazolam 0.25 Mg Tab PO 03/09/21 02:25 0.25 mg NOW ONE Administration Departure - Departure Time of Disposition: 03:20 Disposition: Eloped 07 Condition: Good Clinical Impression: Hyperventilation syndrome, Elevated transaminase level - Discharge Information Prescriptions: ALPRAZolam [Xanax] 0.25 mg PO TID PRN #15 tab PRN Reason: Anxiety Referrals: Armando Logan MD [Primary Care Provider] - Forms: ED Department Discharge Additional Instructions: Patient left without getting her discharge instructions. She did not notify me that she was leaving Sepsis Event Note (ED) - Evaluation Sepsis Screening Result: No Definite Risk - Focused Exam Vital Signs: Vital Signs Temp Pulse Resp BP Pulse Ox 03/09/21 02:05 36.6 C 94 16 143/93 H 95
[2021-03-09] MEDS ORDERED: ALPRAZolam 0.25 MG Tab PO ONE (02:24)
[2021-03-09 03:00] LABS: BLOOD UREA NITROGEN,BUN 7 mg/dL (7.0-18.0); CARBON DIOXIDE,CO2 22.2 mmol/L (21.0-32.0); CHLORIDE,CL 101 mmol/L (98-107); GLUCOSE RANDOM 98 mg/dL (74-106); POTASSIUM,K 3.5 mmol/L (3.5-5.1); SODIUM,NA 140 mmol/L (136-145)
== END 2021-03-09 03:15 | disposition left against medical advice (07) ==
LOC: MW.ED 01:43
DX: F45.8 Other somatoform disorders (principal); R74.01 Elevation of levels of liver transaminase levels; I10 Essential (primary) hypertension; K21.9 Gastro-esophageal reflux disease without esophagitis; E66.9 Obesity, unspecified; Z88.0 Allergy status to penicillin; Z88.2 Allergy status to sulfonamides; Z88.8 Allergy status to other drugs, medicaments and biological substances; Z79.899 Other long term (current) drug therapy; Z68.28 Body mass index [BMI] 28.0-28.9, adult
CPT/HCPCS: 36415; 80053; 82947; 84484; 85025; 93005; 99285; A9270

== ENCOUNTER 2021-10-13 15:58 | Emergency (ER) | payer BC ==
[2021-10-13 18:32] VITALS: PULSE 76
[2021-10-13] MEDS ORDERED: Lisinopril 10 MG Tab PO ONE (19:50)
[2021-10-13 20:43] LABS: BLOOD UREA NITROGEN,BUN 11 mg/dL (7.0-18.0); CARBON DIOXIDE,CO2 22.4 mmol/L (21.0-32.0); CHLORIDE,CL 104 mmol/L (98-107); GLUCOSE RANDOM 86 mg/dL (74-106); POTASSIUM,K 3.6 mmol/L (3.5-5.1); SODIUM,NA 137 mmol/L (136-145)
[2021-10-13 20:49] LABS: ESTIMATED GFR 122 mL/min (>60)
[2021-10-13 22:28] VITALS: BP 140/90
== END 2021-10-13 21:40 | disposition home or self-care (01) ==
LOC: MW.ED 15:58
DX: N39.0 Urinary tract infection, site not specified (principal); R20.2 Paresthesia of skin; R74.01 Elevation of levels of liver transaminase levels; I10 Essential (primary) hypertension; E66.9 Obesity, unspecified; Z88.2 Allergy status to sulfonamides; Z88.0 Allergy status to penicillin; Z79.899 Other long term (current) drug therapy
CPT/HCPCS: 36415; 71045; 80053; 81001; 84484; 84703; 85025; 87086; 93005; 99284; A9270

== ENCOUNTER 2022-05-01 06:15 | Day surgery (SDC) | payer MEDICAID ==
[~2022-05-01 06:15] MED LIST changes: -Clindamycin Phosphate in D5W 50 ML ONE; -Clindamycin Phosphate in D5W 600 MG in Premix Bag 50 BAG IV ONE; -Lactated Ringers 1,000 ML IV SCH; -Lidocaine 2% 5 ML SDV ONE; -Midazolam 1 MG/ML 2 ML SDV ONE; -Ondansetron 4 MG/2 ML SDV ONE; -Propofol 200 MG/20 ML SDV ONE; +ceFAZolin 2 GM in Premix Bag 1 BAG IV SCH; -fentaNYL 250 MCG/5 ML SDV ONE
[2022-05-01] MEDS: Pregabalin 75 MG Cap PO SCH (06:47)
[2022-05-01] MEDS: Scopolamine 1.5 MG Transdermal Patch TRDERM PRN (06:47)
[2022-05-01] MEDS ORDERED: Pregabalin 75 MG Cap ONE (06:53)
[2022-05-01] MEDS: Lactated Ringers 1,000 ML IV SCH (07:18)
[2022-05-01] MEDS: Acetaminophen 1,000 MG in Premix Bag 1 BAG IV SCH (07:21)
[2022-05-01] MEDS ORDERED: Rocuronium Bromide 50 MG/5 ML Syringe ONE (07:28)
[2022-05-01] MEDS ORDERED: Lidocaine 2% 5 ML SDV ONE (07:28)
[2022-05-01] MEDS ORDERED: Dexamethasone 4 MG/ML 5 ML MDV ONE (07:28)
[2022-05-01] MEDS ORDERED: Sugammadex Sodium 200 MG/2 ML VIAL ONE (07:28)
[2022-05-01] MEDS ORDERED: fentaNYL 100 MCG/2 ML SDV ONE (07:29)
[2022-05-01] MEDS ORDERED: Albuterol 0.083% 2.5 MG/3 ML Neb Soln NEB PRN (07:29)
[2022-05-01] MEDS ORDERED: Propofol 200 MG/20 ML SDV ONE ×3 (07:29→08:50)
[2022-05-01] MEDS ORDERED: Midazolam 1 MG/ML 2 ML SDV ONE (07:29)
[2022-05-01] MEDS ORDERED: Morphine 2 MG/ML SYRINGE IVPUSH PRN (07:29)
[2022-05-01] MEDS ORDERED: Naloxone 0.4 MG/ML SDV IVPUSH PRN (07:29)
[2022-05-01] MEDS ORDERED: fentaNYL 50 MCG/ML SDV IVPUSH PRN (07:29)
[2022-05-01] MEDS ORDERED: Ondansetron 4 MG/2 ML SDV IVPUSH PRN (07:29)
[2022-05-01] MEDS ORDERED: Metoclopramide 10 MG/2 ML SDV IVPUSH PRN (07:29)
[2022-05-01] MEDS ORDERED: HYDROmorphone 1 MG/ML Syringe IVPUSH PRN (07:29)
[2022-05-01] MEDS ORDERED: Bupivacaine 0.25%/EPINEPHrine 1:200,000 10 ML SDV ONE (07:31)
[2022-05-01] MEDS ORDERED: Ropivacaine 0.5% 5 MG/ML 30 ML SDV ONE (07:31)
[2022-05-01] MEDS ORDERED: Bupivacaine 0.5% 30 ML SDV ONE (07:34)
[2022-05-01] MEDS ORDERED: Water For Injection, Sterile 20 ML ONE (08:17)
[2022-05-01] MEDS ORDERED: ceFAZolin 2 GM Vial ONE (08:17)
[2022-05-01] MEDS ORDERED: Ketorolac 30 MG/ML SDV ONE (08:55)
[2022-05-01] MEDS ORDERED: HYDROmorphone 2 MG/ML Syringe ONE (09:07)
[2022-05-01 11:39] VITALS: PULSE 92
[2022-05-01 11:54] VITALS: BP 135/75
[2022-05-01] MEDS: Ondansetron 4 MG/2 ML SDV IVPUSH ONE (12:22)
== END 2022-05-01 12:40 | disposition home or self-care (01) ==
LOC: MW.SDS 06:15
PROVIDERS: ATTEND Surgery
DX: K43.2 Incisional hernia without obstruction or gangrene (principal); F41.9 Anxiety disorder, unspecified; J45.909 Unspecified asthma, uncomplicated; F32.A Depression, unspecified; G43.909 Migraine, unspecified, not intractable, without status migrainosus; R73.03 Prediabetes; F17.210 Nicotine dependence, cigarettes, uncomplicated; I10 Essential (primary) hypertension; K21.9 Gastro-esophageal reflux disease without esophagitis; E04.1 Nontoxic single thyroid nodule; Z68.36 Body mass index [BMI] 36.0-36.9, adult; Z88.0 Allergy status to penicillin; Z88.2 Allergy status to sulfonamides; Z88.8 Allergy status to other drugs, medicaments and biological substances; Z79.899 Other long term (current) drug therapy; Z90.49 Acquired absence of other specified parts of digestive tract; Z98.890 Other specified postprocedural states
CPT/HCPCS: 81025; A9270-GY; C1781; J0131; J0690; J1100; J1170; J1885; J2250; J2405; J2704; J2795; J3010; J3490; J7120

== ENCOUNTER 2022-05-02 12:39 | Emergency (ER) | payer MEDICAID ==
[2022-05-02] MEDS ORDERED: Ondansetron 4 MG/2 ML SDV IVPUSH STA (14:32)
[2022-05-02] MEDS ORDERED: Sodium Chloride 0.9% 1,000 ML IV STA (14:32)
[2022-05-02] MEDS ORDERED: HYDROmorphone 1 MG/ML Syringe IVPUSH STA (14:33)
[2022-05-02 15:39] LABS: CARBON DIOXIDE,CO2 25.4 mmol/L (21.0-32.0); POTASSIUM,K 3.9 mmol/L (3.5-5.1)
[2022-05-02] MEDS ORDERED: HYDROmorphone 2 MG/ML Syringe IVPUSH STA (16:02)
[2022-05-02] MEDS ORDERED: Iopamidol 755 MG/ML 500 ML Multipack Bottle IVPUSH ONE (16:32)
[2022-05-02 18:09] VITALS: BP 123/65; PULSE 78
== END 2022-05-02 18:08 | disposition home or self-care (01) ==
LOC: MW.ED 12:39
DX: G89.18 Other acute postprocedural pain (principal); R10.31 Right lower quadrant pain; R74.01 Elevation of levels of liver transaminase levels; D75.89 Other specified diseases of blood and blood-forming organs; I10 Essential (primary) hypertension; Z88.0 Allergy status to penicillin; Z88.2 Allergy status to sulfonamides; Z88.8 Allergy status to other drugs, medicaments and biological substances; Z79.899 Other long term (current) drug therapy; Z90.49 Acquired absence of other specified parts of digestive tract; Z72.0 Tobacco use
CPT/HCPCS: 36415; 74177; 80053; 80307; 81001; 83605; 85025; 96361; 96374; 96375; 96376; 99284; J1170; J2405; J7030; Q9967

== ENCOUNTER 2022-09-18 02:38 | Emergency (ER) | payer MEDICAID ==
[2022-09-18] MEDS ORDERED: Sodium Chloride 0.9% 1,000 ML IV ONE (02:44)
[2022-09-18 02:59] LABS: HEMATOCRIT 47.9 % (36.0-46.0); HEMOGLOBIN 16.1 g/dL (12.0-16.0); MEAN CORPUSCULAR HEMOGLOBIN 33.5 pg (27.0-32.0); MEAN CORPUSCULAR HGB CONC 33.6 g/dL (31.0-37.0); MEAN CORPUSCULAR VOLUME 99.8 fL (80.0-98.0); PLATELET COUNT,PLT 214 K/uL (150-400); WHITE BLOOD CELL COUNT,WBC 10.75 K/uL (4.0-11.0)
[2022-09-18 03:12] LABS: APPEARANCE,URINE CLEAR; BILIRUBIN,URINE NEGATIVE (NEGATIVE); COLOR,URINE YELLOW; GLUCOSE,URINE NEGATIVE (NEGATIVE); KETONES,URINE NEGATIVE (NEGATIVE); LEUKOCYTE ESTERASE,URINE NEGATIVE (NEGATIVE); NITRITE,URINE NEGATIVE (NEGATIVE); OCCULT BLOOD,URINE NEGATIVE (NEGATIVE); PROTEIN,URINE NEGATIVE (NEGATIVE); UROBILINOGEN,URINE 0.2 EU/dL (<2.0)
[2022-09-18 03:14] LABS: INR 1.15 (0.86-1.11); PTT,PARTIAL THROMBOPLSTIN TIME 28.5 SEC (23.9-30.7)
[2022-09-18 03:26] LABS: BAND ABSOLUTE MAN 0.1; BAND PERCENT MAN 1 %; EOSINOPHILS ABSOLUTE MAN 0.1 (0.0-0.7); EOSINOPHILS PERCENT MAN 1 % (0.0-7.0); LYMPHOCYTES ABSOLUTE MAN 3.5 (0.6-2.4); LYMPHOCYTES PERCENT MAN 33 % (16.0-40.0); MONOCYTES ABSOLUTE MAN 0.6 (0.0-0.8); MONOCYTES PERCENT MAN 6 % (0.0-15.0); SEG NEUTROPHILS ABSOLUTE MAN 6.3 (1.4-5.7); SEG NEUTROPHILS PERCENT MAN 59 % (48.0-80.0)
[2022-09-18 03:30] LABS: AMPHETAMINES SCREEN, URINE NEGATIVE (CUTOFF=500); BARBITURATE SCREEN,URINE NEGATIVE (CUTOFF=200); BENZODIAZEPINES SCREEN,URINE NEGATIVE (CUTOFF=150); BUPRENORPHINE SCREEN,URINE NEGATIVE (CUTOFF=10); METHADONE SCREEN, URINE NEGATIVE (CUTOFF=200); METHAMPHETAMINES SCREEN, URINE NEGATIVE (CUTOFF=500); OXYCODONE SCREEN,URINE NEGATIVE (CUT0FF=100); PCP SCREEN,URINE NEGATIVE (CUTOFF=25); PROPOXYPHENE SCREEN,URINE NEGATIVE (CUTOFF=300); THC SCREEN,URINE 20 NG/ML NEGATIVE (CUTOFF=50)
[2022-09-18 03:41] LABS: A/G RATIO 0.9 (0.9-1.6); ACETAMINOPHEN <2.0 ug/mL; ALANINE AMINOTRANSFERASE,ALT 99 IU/L (14-63); ALBUMIN 3.9 g/dL (3.4-5.0); ALKALINE PHOSPHATASE 150 U/L (46-116); ASPARTATE AMNIOTRANSFERASE,AST 170 IU/L (15-37); BILIRUBIN TOTAL 0.8 mg/dL (0.2-1.0); BLOOD UREA NITROGEN,BUN 5 mg/dL (7.0-18.0); CALCIUM 9.1 mg/dL (8.5-10.1); CARBON DIOXIDE,CO2 23.9 mmol/L (21.0-32.0); CHLORIDE,CL 100 mmol/L (98-107); CREATININE 0.8 mg/dL (0.6-1.0); ESTIMATED GFR 100 mL/min (>60); ETHANOL BLOOD MEDICAL 201 mg/dL; GLUCOSE RANDOM 132 mg/dL (74-106); MAGNESIUM 2.3 mg/dL (1.8-2.4); POTASSIUM,K 3.6 mmol/L (3.5-5.1); PROTEIN TOTAL,TP 8.2 g/dL (6.4-8.2); SALICYLATE 3.6 mg/dL (0.0-20.0); SODIUM,NA 139 mmol/L (136-145)
[2022-09-18 05:47] VITALS: BP 97/59; PULSE 92
== END 2022-09-18 05:47 | disposition home or self-care (01) ==
LOC: MW.ED 02:38
DX: T42.4X2A Poisoning by benzodiazepines, intentional self-harm, initial encounter (principal); F10.10 Alcohol abuse, uncomplicated; I10 Essential (primary) hypertension; J45.909 Unspecified asthma, uncomplicated; Y90.7 Blood alcohol level of 200-239 mg/100 ml; Z79.899 Other long term (current) drug therapy; Z88.0 Allergy status to penicillin; Z88.8 Allergy status to other drugs, medicaments and biological substances; Z88.2 Allergy status to sulfonamides
CPT/HCPCS: 36415; 71045; 80053; 80143; 80179; 80305; 80307; 81003; 83735; 84443; 84484; 84703; 85025; 85610; 85730; 93005; 96360; 99285; J7030; 93010; 99283

== ENCOUNTER 2022-12-08 22:13 | Emergency (ER) | payer MEDICAID ==
[2022-12-08] MEDS ORDERED: methylPREDNISolone Sodium Succinate 125 MG/2 ML SDV IVPUSH ONE (22:31)
[2022-12-08] MEDS ORDERED: diphenhydrAMINE 50 MG/ML SDV IVPUSH ONE (22:31)
[2022-12-08] MEDS ORDERED: Famotidine 20 MG/2 ML SDV IVPUSH ONE (22:31)
[2022-12-08] MEDS ORDERED: Sulfamethoxazole/Trimethoprim 800-160 MG Tab PO ONE (23:28)
[2022-12-08 23:46] VITALS: BP 135/85; PULSE 74
== END 2022-12-08 23:44 | disposition home or self-care (01) ==
LOC: MW.ED 22:13
DX: T63.441A Toxic effect of venom of bees, accidental (unintentional), initial encounter (principal); L03.114 Cellulitis of left upper limb; I10 Essential (primary) hypertension; J45.909 Unspecified asthma, uncomplicated; Z79.899 Other long term (current) drug therapy; Z88.0 Allergy status to penicillin; Z88.2 Allergy status to sulfonamides; Z88.8 Allergy status to other drugs, medicaments and biological substances
CPT/HCPCS: 96374; 96375; 99282; A9270; J1200; J2930; J3490; 99284

== ENCOUNTER 2022-12-26 01:58 | Emergency (ER) | payer MEDICAID ==
[2022-12-26] MEDS ORDERED: Ketorolac 30 MG/ML SDV IVPUSH ONE (02:05)
[2022-12-26] MEDS ORDERED: Sodium Chloride 0.9% 1,000 ML IV ONE (02:05)
[2022-12-26] MEDS ORDERED: Ondansetron 4 MG/2 ML SDV IVPUSH ONE (02:05)
[2022-12-26 02:15] LABS: APPEARANCE,URINE CLEAR; BILIRUBIN,URINE NEGATIVE (NEGATIVE); GLUCOSE,URINE NEGATIVE (NEGATIVE); KETONES,URINE NEGATIVE (NEGATIVE); LEUKOCYTE ESTERASE,URINE NEGATIVE (NEGATIVE); NITRITE,URINE NEGATIVE (NEGATIVE); OCCULT BLOOD,URINE NEGATIVE (NEGATIVE); PH,URINE 5.5 (5.0-8.0); PROTEIN,URINE NEGATIVE (NEGATIVE); UROBILINOGEN,URINE 0.2 EU/dL (<2.0)
[2022-12-26 02:17] LABS: BASOPHILS ABSOLUTE AUTO 0.1 K/uL (0.0-0.1); BASOPHILS PERCENT AUTO 0.8 % (0.0-1.5); EOSINOPHILS ABSOLUTE AUTO 0.2 K/uL (0.0-0.7); EOSINOPHILS PERCENT AUTO 1.7 % (0.0-7.0); HEMATOCRIT 47.9 % (36.0-46.0); HEMOGLOBIN 16.4 g/dL (12.0-16.0); LYMPHOCYTES ABSOLUTE AUTO 4.9 K/uL (0.6-2.4); LYMPHOCYTES PERCENT AUTO 44.7 % (16.0-40.0); MEAN CORPUSCULAR HEMOGLOBIN 33.6 pg (27.0-32.0); MEAN CORPUSCULAR HGB CONC 34.2 g/dL (31.0-37.0); MEAN CORPUSCULAR VOLUME 98.2 fL (80.0-98.0); MONOCYTES ABSOLUTE AUTO 0.6 K/uL (0.0-0.8); MONOCYTES PERCENT AUTO 5.5 % (0.0-15.0); NEUTROPHILS ABSOLUTE AUTO 5.2 K/uL (1.4-5.7); NEUTROPHILS PERCENT AUTO 47.3 % (48.0-80.0); NRBC ABSOLUTE 0 K/uL; PLATELET COUNT,PLT 279 K/uL (150-400); RED BLOOD CELL COUNT 4.88 M/uL (4.30-5.90); WHITE BLOOD CELL COUNT,WBC 10.94 K/uL (4.0-11.0)
[2022-12-26 02:17] LABS: COLOR,URINE STRAW
[2022-12-26 02:24] LABS: AMPHETAMINES SCREEN, URINE NEGATIVE (CUTOFF=500); BARBITURATE SCREEN,URINE NEGATIVE (CUTOFF=200); BENZODIAZEPINES SCREEN,URINE NEGATIVE (CUTOFF=150); BUPRENORPHINE SCREEN,URINE NEGATIVE (CUTOFF=10); METHADONE SCREEN, URINE NEGATIVE (CUTOFF=200); METHAMPHETAMINES SCREEN, URINE NEGATIVE (CUTOFF=500); OXYCODONE SCREEN,URINE NEGATIVE (CUT0FF=100); PCP SCREEN,URINE NEGATIVE (CUTOFF=25); PROPOXYPHENE SCREEN,URINE NEGATIVE (CUTOFF=300); THC SCREEN,URINE 20 NG/ML NEGATIVE (CUTOFF=50)
[2022-12-26] MEDS ORDERED: Dicyclomine 10 MG Cap PO ONE (02:51)
[2022-12-26 02:53] LABS: A/G RATIO 0.9 (0.9-1.6); ALBUMIN 4.4 g/dL (3.4-5.0); BILIRUBIN TOTAL 0.4 mg/dL (0.2-1.0); CALCIUM 9.4 mg/dL (8.5-10.1); CARBON DIOXIDE,CO2 23.7 mmol/L (21.0-32.0); CREATININE 0.6 mg/dL (0.6-1.0); EST CRCL DRUG DOSING (CG) 118.88 mL/min; POTASSIUM,K 3.9 mmol/L (3.5-5.1); PROTEIN TOTAL,TP 9.1 g/dL (6.4-8.2)
[2022-12-26 03:32] VITALS: BP 124/69; PULSE 102
== END 2022-12-26 03:31 | disposition home or self-care (01) ==
LOC: MW.ED 01:58
DX: R10.31 Right lower quadrant pain (principal); R10.32 Left lower quadrant pain; I10 Essential (primary) hypertension; J45.909 Unspecified asthma, uncomplicated; K21.9 Gastro-esophageal reflux disease without esophagitis; E66.9 Obesity, unspecified; Z68.33 Body mass index [BMI] 33.0-33.9, adult; Z88.0 Allergy status to penicillin; Z88.8 Allergy status to other drugs, medicaments and biological substances; Z88.2 Allergy status to sulfonamides; Z90.49 Acquired absence of other specified parts of digestive tract; Z79.899 Other long term (current) drug therapy
CPT/HCPCS: 36415; 80053; 80305; 80307; 81003; 81025; 83690; 85025; 96374; 96375; 99284; A9270; J1885; J2405; J7030

== ENCOUNTER 2023-02-21 18:53 | Emergency (ER) | payer MEDICAID ==
[2023-02-21] MEDS ORDERED: Sodium Chloride 0.9% 2.5 ML Syringe FLUSH PRN (19:30)
[2023-02-21] MEDS ORDERED: Sodium Chloride 0.9% 10 ML Syringe FLUSH PRN (19:30)
[2023-02-21] MEDS ORDERED: Sodium Chloride 0.9% 1,000 ML IV STA (19:33)
[2023-02-21 19:45] LABS: BASOPHILS ABSOLUTE AUTO 0.06 K/uL (0.00-0.20); BASOPHILS PERCENT AUTO 0.7 % (0.0-1.0); EOSINOPHILS ABSOLUTE AUTO 0.09 K/uL (0.00-0.45); EOSINOPHILS PERCENT AUTO 1.1 % (0.0-6.0); HEMATOCRIT 41.3 % (37.0-47.0); IMMATURE GRAN ABSOLUTE AUTO 0.03 K/uL (0.00-0.05); IMMATURE GRAN PERCENT AUTO 0.4 % (0.0-0.4); LYMPHOCYTES ABSOLUTE AUTO 1.76 K/uL (1.00-4.80); LYMPHOCYTES PERCENT AUTO 21.3 % (24.0-44.0); MEAN CORPUSCULAR HEMOGLOBIN 33.3 pg (28.0-32.0); MEAN CORPUSCULAR HGB CONC 33.9 g/dL (32.0-36.0); MEAN CORPUSCULAR VOLUME 98.1 fL (83.0-99.0); MEAN PLATELET VOLUME 9.9 fL (9.4-12.3); MONOCYTES ABSOLUTE AUTO 0.71 K/uL (0.00-0.80); MONOCYTES PERCENT AUTO 8.6 % (0.0-8.0); NEUTROPHILS PERCENT AUTO 67.9 % (41.0-71.0); PLATELET COUNT,PLT 215 K/uL (150-400); RED BLOOD CELL COUNT 4.21 M/uL (4.10-5.30); WHITE BLOOD CELL COUNT,WBC 8.25 K/uL (3.9-11.3)
[2023-02-21 20:07] LABS: A/G RATIO 0.7 (0.9-1.6); ALBUMIN 3.6 g/dL (3.4-5.0); BILIRUBIN TOTAL 0.4 mg/dL (0.2-1.0); CALCIUM 9.1 mg/dL (8.5-10.1); CARBON DIOXIDE,CO2 28.2 mmol/L (21.0-32.0); CREATININE 0.7 mg/dL (0.6-1.0); EST CRCL DRUG DOSING (CG) 101.9 mL/min; POTASSIUM,K 3.6 mmol/L (3.5-5.1); PROTEIN TOTAL,TP 8.7 g/dL (6.4-8.2)
[2023-02-21 20:59] VITALS: BP 121/67; PULSE 76
== END 2023-02-21 20:58 | disposition home or self-care (01) ==
LOC: MW.ED 18:53
DX: N93.8 Other specified abnormal uterine and vaginal bleeding (principal); R79.89 Other specified abnormal findings of blood chemistry; I10 Essential (primary) hypertension; Z79.899 Other long term (current) drug therapy; Z88.0 Allergy status to penicillin; Z88.2 Allergy status to sulfonamides; Z88.8 Allergy status to other drugs, medicaments and biological substances
CPT/HCPCS: 36415; 76830; 80053; 83690; 84443; 84703; 85025; 96360; 99284; J3490; J7030; 99282

== ENCOUNTER 2023-05-21 00:51 | Emergency (ER) | payer MEDICAID ==
[2023-05-21] MEDS: Famotidine 20 MG/2 ML SDV IVPUSH ONE (01:45)
[2023-05-21] MEDS: methylPREDNISolone Sodium Succinate 40 MG/1 ML SDV IVPUSH ONE (01:45)
[2023-05-21] MEDS: Sodium Chloride 0.9% 2.5 ML Syringe FLUSH PRN (01:46)
[2023-05-21] MEDS: Sodium Chloride 0.9% 10 ML Syringe FLUSH PRN (01:46)
[2023-05-21 03:19] VITALS: BP 138/90; PULSE 97
== END 2023-05-21 03:20 | disposition left against medical advice (07) ==
LOC: MW.ED 00:51
DX: T78.3XXA Angioneurotic edema, initial encounter (principal); I10 Essential (primary) hypertension; J45.909 Unspecified asthma, uncomplicated; Z90.49 Acquired absence of other specified parts of digestive tract; Z88.0 Allergy status to penicillin; Z88.2 Allergy status to sulfonamides; Z88.8 Allergy status to other drugs, medicaments and biological substances
CPT/HCPCS: 96374; 96375; 99283; J2920; J3490; 99284

== ENCOUNTER 2023-05-25 14:49 | Emergency (ER) | payer MEDICAID ==
[2023-05-25] MEDS: Lidocaine 2% Viscous Solution 15 ML UD PO ONE (15:26)
[2023-05-25] MEDS: Benzocaine 20% Topical Spray UD MUCMEM ONE (15:26)
[2023-05-25 15:28] VITALS: BP 124/76; PULSE 92
== END 2023-05-25 15:28 | disposition home or self-care (01) ==
LOC: MW.ED 14:49
DX: K04.7 Periapical abscess without sinus (principal); I10 Essential (primary) hypertension; J45.909 Unspecified asthma, uncomplicated; Z88.0 Allergy status to penicillin; Z88.2 Allergy status to sulfonamides; Z88.8 Allergy status to other drugs, medicaments and biological substances; Z79.899 Other long term (current) drug therapy; Z90.49 Acquired absence of other specified parts of digestive tract
CPT/HCPCS: 99282; A9270; 99283

== ENCOUNTER 2023-05-27 19:03 | Emergency (ER) | payer MEDICAID ==
[2023-05-27 19:28] VITALS: BP 149/111; PULSE 81
== END 2023-05-27 19:56 | disposition home or self-care (01) ==
LOC: MW.ED 19:03
DX: B37.0 Candidal stomatitis (principal); B37.81 Candidal esophagitis
CPT/HCPCS: 99282; 99283

== ENCOUNTER 2023-07-08 09:44 | Emergency (ER) | payer MEDICAID ==
[2023-07-08 10:09] VITALS: BP 147/88; PULSE 103
== END 2023-07-08 10:30 | disposition left against medical advice (07) ==
LOC: MW.ED 09:44
DX: F10.10 Alcohol abuse, uncomplicated (principal); I10 Essential (primary) hypertension; Z75.8 Other problems related to medical facilities and other health care; Z88.0 Allergy status to penicillin; Z88.8 Allergy status to other drugs, medicaments and biological substances; Z88.2 Allergy status to sulfonamides; Z90.49 Acquired absence of other specified parts of digestive tract; Y90.9 Presence of alcohol in blood, level not specified
CPT/HCPCS: 99282; 99284

== ENCOUNTER 2023-11-15 01:24 | Emergency (ER) | payer MEDICAID ==
[2023-11-15] MEDS ORDERED: Iopamidol 755 MG/ML 500 ML Multipack Bottle IVPUSH STA (01:37)
[2023-11-15 01:43] LABS: BASOPHILS ABSOLUTE AUTO 0.15 K/uL (0.00-0.20); BASOPHILS PERCENT AUTO 1.1 % (0.0-1.0); EOSINOPHILS PERCENT AUTO 1.4 % (0.0-6.0); HEMATOCRIT 46.3 % (37.0-47.0); HEMOGLOBIN 15.6 g/dL (12.0-16.0); IMMATURE GRAN ABSOLUTE AUTO 0.13 K/uL (0.00-0.05); IMMATURE GRAN PERCENT AUTO 0.9 % (0.0-0.4); LYMPHOCYTES ABSOLUTE AUTO 4.74 K/uL (1.00-4.80); LYMPHOCYTES PERCENT AUTO 33.8 % (24.0-44.0); MEAN CORPUSCULAR HEMOGLOBIN 32.6 pg (28.0-32.0); MEAN CORPUSCULAR HGB CONC 33.7 g/dL (32.0-36.0); MEAN CORPUSCULAR VOLUME 96.7 fL (83.0-99.0); MEAN PLATELET VOLUME 9.4 fL (9.4-12.3); MONOCYTES PERCENT AUTO 6.4 % (0.0-8.0); NEUTROPHILS ABSOLUTE AUTO 7.92 K/uL (1.80-7.70); NEUTROPHILS PERCENT AUTO 56.4 % (41.0-71.0); PLATELET COUNT,PLT 232 K/uL (150-400); RED BLOOD CELL COUNT 4.79 M/uL (4.10-5.30); WHITE BLOOD CELL COUNT,WBC 14.04 K/uL (3.9-11.3)
[2023-11-15 01:58] LABS: APPEARANCE,URINE CLEAR; BILIRUBIN,URINE NEGATIVE (NEGATIVE); COLOR,URINE YELLOW; GLUCOSE,URINE NEGATIVE (NEGATIVE); KETONES,URINE NEGATIVE (NEGATIVE); LEUKOCYTE ESTERASE,URINE NEGATIVE (NEGATIVE); NITRITE,URINE NEGATIVE (NEGATIVE); OCCULT BLOOD,URINE NEGATIVE (NEGATIVE); PROTEIN,URINE NEGATIVE (NEGATIVE); UROBILINOGEN,URINE 0.2 EU/dL (<2.0)
[2023-11-15 02:00] VITALS: BP 113/78; PULSE 104
[2023-11-15 02:10] LABS: AMPHETAMINES SCREEN, URINE NEGATIVE (CUTOFF=500); BARBITURATE SCREEN,URINE NEGATIVE (CUTOFF=200); BENZODIAZEPINES SCREEN,URINE NEGATIVE (CUTOFF=150); BUPRENORPHINE SCREEN,URINE NEGATIVE (CUTOFF=10); METHADONE SCREEN, URINE NEGATIVE (CUTOFF=200); METHAMPHETAMINES SCREEN, URINE NEGATIVE (CUTOFF=500); OXYCODONE SCREEN,URINE NEGATIVE (CUT0FF=100); PCP SCREEN,URINE NEGATIVE (CUTOFF=25); THC SCREEN,URINE 20 NG/ML NEGATIVE (CUTOFF=50)
[2023-11-15 02:14] LABS: A/G RATIO 0.9 (0.9-1.6); ALANINE AMINOTRANSFERASE,ALT 79 IU/L (14-63); ALKALINE PHOSPHATASE 179 U/L (46-116); ASPARTATE AMNIOTRANSFERASE,AST 142 IU/L (15-37); BILIRUBIN TOTAL 0.8 mg/dL (0.2-1.0); BLOOD UREA NITROGEN,BUN 5 mg/dL (7.0-18.0); CALCIUM 9.1 mg/dL (8.5-10.1); CARBON DIOXIDE,CO2 21.5 mmol/L (21.0-32.0); CHLORIDE,CL 98 mmol/L (98-107); CREATININE 0.7 mg/dL (0.6-1.0); EST CRCL DRUG DOSING (CG) 100.94 mL/min; ETHANOL BLOOD MEDICAL 295 mg/dL; GLUCOSE RANDOM 107 mg/dL (74-106); POTASSIUM,K 3.7 mmol/L (3.5-5.1); PROTEIN TOTAL,TP 8.6 g/dL (6.4-8.2); SODIUM,NA 135 mmol/L (136-145); TSH ULTRASENSITIVE 2.58 uIU/mL (0.36-3.74)
[2023-11-15 02:19] LABS: ESTIMATED GFR 116 mL/min (>60)
== END 2023-11-15 03:04 | disposition left against medical advice (07) ==
LOC: MW.ED 01:24
DX: R53.1 Weakness (principal); R20.0 Anesthesia of skin; F10.129 Alcohol abuse with intoxication, unspecified; R47.81 Slurred speech; E04.1 Nontoxic single thyroid nodule; I10 Essential (primary) hypertension; Z90.49 Acquired absence of other specified parts of digestive tract; Z88.2 Allergy status to sulfonamides; Z88.0 Allergy status to penicillin; Z88.8 Allergy status to other drugs, medicaments and biological substances
CPT/HCPCS: 36415; 70450; 70450-26; 70496; 70496-26; 70498; 70498-26; 71045; 71045-26; 80053; 80305-QW; 80307; 81003; 81025; 83735; 84443; 84484; 85025; 93005; 93010; 99285; 99291

== ENCOUNTER 2024-01-25 07:08 | Emergency (ER) | payer MEDICAID ==
[2024-01-25] MEDS ORDERED: Sodium Chloride 0.9% 10 ML Syringe FLUSH PRN (07:12)
[2024-01-25 07:38] LABS: BASOPHILS PERCENT AUTO 1.1 % (0.0-1.0); EOSINOPHILS ABSOLUTE AUTO 0.03 K/uL (0.00-0.45); EOSINOPHILS PERCENT AUTO 0.3 % (0.0-6.0); HEMATOCRIT 44.1 % (37.0-47.0); HEMOGLOBIN 15.1 g/dL (12.0-16.0); IMMATURE GRAN ABSOLUTE AUTO 0.02 K/uL (0.00-0.05); IMMATURE GRAN PERCENT AUTO 0.2 % (0.0-0.4); LYMPHOCYTES ABSOLUTE AUTO 3.58 K/uL (1.00-4.80); LYMPHOCYTES PERCENT AUTO 38.6 % (24.0-44.0); MEAN CORPUSCULAR HEMOGLOBIN 32.3 pg (28.0-32.0); MEAN CORPUSCULAR HGB CONC 34.2 g/dL (32.0-36.0); MEAN CORPUSCULAR VOLUME 94.2 fL (83.0-99.0); MEAN PLATELET VOLUME 9.2 fL (9.4-12.3); MONOCYTES ABSOLUTE AUTO 0.52 K/uL (0.00-0.80); MONOCYTES PERCENT AUTO 5.6 % (0.0-8.0); NEUTROPHILS ABSOLUTE AUTO 5.03 K/uL (1.80-7.70); NEUTROPHILS PERCENT AUTO 54.2 % (41.0-71.0); PLATELET COUNT,PLT 195 K/uL (150-400); RED BLOOD CELL COUNT 4.68 M/uL (4.10-5.30); WHITE BLOOD CELL COUNT,WBC 9.28 K/uL (3.9-11.3)
[2024-01-25] MEDS: Pantoprazole 80 MG in Sodium Chloride 0.9% 10 ML IVPUSH ONE (07:55)
[2024-01-25 07:58] VITALS: BP 134/95; PULSE 94
[2024-01-25 08:00] LABS: ALBUMIN 4.2 g/dL (3.4-5.0); BILIRUBIN TOTAL 0.7 mg/dL (0.2-1.0); C-REACTIVE PROTEIN 0.46 mg/dL (<0.3); CALCIUM 8.6 mg/dL (8.5-10.1); CARBON DIOXIDE,CO2 22.6 mmol/L (21.0-32.0); CREATININE 0.6 mg/dL (0.6-1.0); EST CRCL DRUG DOSING (CG) 117.76 mL/min; POTASSIUM,K 3.2 mmol/L (3.5-5.1); PROTEIN TOTAL,TP 8.5 g/dL (6.4-8.2)
[2024-01-25 08:19] LABS: INR 1.16 (0.86-1.11)
== END 2024-01-25 08:19 | disposition left against medical advice (07) ==
LOC: MW.ED 07:08
DX: K92.0 Hematemesis (principal); K92.1 Melena; E87.6 Hypokalemia; R45.1 Restlessness and agitation; R45.6 Violent behavior; F10.99 Alcohol use, unspecified with unspecified alcohol-induced disorder; R79.1 Abnormal coagulation profile; I10 Essential (primary) hypertension; Z90.49 Acquired absence of other specified parts of digestive tract; Z79.899 Other long term (current) drug therapy; Z88.0 Allergy status to penicillin; Z88.2 Allergy status to sulfonamides; Z88.8 Allergy status to other drugs, medicaments and biological substances
CPT/HCPCS: 36415; 80053; 83605; 83690; 84703; 85025; 85610; 85652; 86140; 96374; 99284; J2470; J3490

== ENCOUNTER 2024-02-28 21:37 | Emergency (ER) | payer MEDICAID ==
[2024-02-28 21:50] VITALS: BP 131/85; PULSE 110
[2024-02-28] MEDS ORDERED: Sodium Chloride 0.9% 10 ML Syringe FLUSH PRN (22:10)
[2024-02-28] MEDS ORDERED: Sodium Chloride 0.9% 20 ML SDV IV PRN (22:10)
[2024-02-28] MEDS ORDERED: Sodium Chloride 0.9% 2.5 ML Syringe FLUSH PRN (22:10)
[2024-02-28 22:19] LABS: BASOPHILS ABSOLUTE AUTO 0.11 K/uL (0.00-0.20); BASOPHILS PERCENT AUTO 1.5 % (0.0-1.0); EOSINOPHILS ABSOLUTE AUTO 0.07 K/uL (0.00-0.45); HEMATOCRIT 47.6 % (37.0-47.0); HEMOGLOBIN 16.3 g/dL (12.0-16.0); IMMATURE GRAN ABSOLUTE AUTO 0.04 K/uL (0.00-0.05); IMMATURE GRAN PERCENT AUTO 0.6 % (0.0-0.4); LYMPHOCYTES ABSOLUTE AUTO 3.35 K/uL (1.00-4.80); LYMPHOCYTES PERCENT AUTO 47.2 % (24.0-44.0); MEAN CORPUSCULAR HEMOGLOBIN 32.3 pg (28.0-32.0); MEAN CORPUSCULAR HGB CONC 34.2 g/dL (32.0-36.0); MEAN CORPUSCULAR VOLUME 94.3 fL (83.0-99.0); MEAN PLATELET VOLUME 8.8 fL (9.4-12.3); MONOCYTES ABSOLUTE AUTO 0.42 K/uL (0.00-0.80); MONOCYTES PERCENT AUTO 5.9 % (0.0-8.0); NEUTROPHILS ABSOLUTE AUTO 3.11 K/uL (1.80-7.70); NEUTROPHILS PERCENT AUTO 43.8 % (41.0-71.0); PLATELET COUNT,PLT 264 K/uL (150-400); RED BLOOD CELL COUNT 5.05 M/uL (4.10-5.30)
[2024-02-28] MEDS: Ketorolac 30 MG/ML SDV IVPUSH ONE (23:00)
[2024-02-28] MEDS: Ondansetron 4 MG/2 ML SDV IVPUSH ONE (23:00)
[2024-02-28] MEDS: Morphine 2 MG/ML SYRINGE IVPUSH ONE (23:00)
[2024-02-28] MEDS: Acetaminophen 500 MG Tab PO ONE (23:22)
== END 2024-02-29 00:16 | disposition left against medical advice (07) ==
LOC: MW.ED 21:37
DX: S30.0XXA Contusion of lower back and pelvis, initial encounter (principal); F10.120 Alcohol abuse with intoxication, uncomplicated; M53.3 Sacrococcygeal disorders, not elsewhere classified; R10.2 Pelvic and perineal pain; R45.1 Restlessness and agitation; I10 Essential (primary) hypertension; J45.909 Unspecified asthma, uncomplicated; F17.210 Nicotine dependence, cigarettes, uncomplicated; Z90.49 Acquired absence of other specified parts of digestive tract; Z88.0 Allergy status to penicillin; Z88.2 Allergy status to sulfonamides; Z88.8 Allergy status to other drugs, medicaments and biological substances; Z79.899 Other long term (current) drug therapy; W00.0XXA Fall on same level due to ice and snow, initial encounter; Y90.8 Blood alcohol level of 240 mg/100 ml or more
CPT/HCPCS: 36415; 72131; 74176; 80307; 84703; 85025; 96374; 96375; 99284; J1885; J2270; J2405

== ENCOUNTER 2024-03-28 14:06 | Emergency (ER) | payer MEDICAID ==
[2024-03-28] MEDS: Ondansetron 4 MG Tab.DIS PO ONE (14:59)
[2024-03-28 16:23] VITALS: BP 137/89; PULSE 70
== END 2024-03-28 16:23 | disposition home or self-care (01) ==
LOC: MW.ED 14:06
DX: J06.9 Acute upper respiratory infection, unspecified (principal); I10 Essential (primary) hypertension; J45.909 Unspecified asthma, uncomplicated; F17.210 Nicotine dependence, cigarettes, uncomplicated; Z90.49 Acquired absence of other specified parts of digestive tract; Z88.0 Allergy status to penicillin; Z88.2 Allergy status to sulfonamides; Z88.8 Allergy status to other drugs, medicaments and biological substances; Z79.899 Other long term (current) drug therapy; Z75.8 Other problems related to medical facilities and other health care
CPT/HCPCS: 71046; 87428; 99284; A9270

== ENCOUNTER 2024-04-05 02:02 | Emergency (ER) | payer MEDICAID ==
[2024-04-05 02:24] VITALS: BP 149/86; PULSE 87
== END 2024-04-05 02:46 | disposition left against medical advice (07) ==
LOC: MW.ED 02:02
DX: Z53.21 Procedure and treatment not carried out due to patient leaving prior to being seen by health care provider (principal)

== ENCOUNTER 2024-06-23 03:35 | Emergency (ER) | payer MEDICAID ==
[2024-06-23] MEDS: diphenhydrAMINE 50 MG/ML SDV IVPUSH ONE (03:46)
[2024-06-23 06:52] VITALS: BP 97/56; PULSE 101
== END 2024-06-23 06:45 | disposition home or self-care (01) ==
LOC: MW.ED 03:35
DX: T78.40XA Allergy, unspecified, initial encounter (principal); F10.120 Alcohol abuse with intoxication, uncomplicated; I10 Essential (primary) hypertension; J45.909 Unspecified asthma, uncomplicated; Z90.49 Acquired absence of other specified parts of digestive tract; Z88.2 Allergy status to sulfonamides; Z88.0 Allergy status to penicillin; Z88.8 Allergy status to other drugs, medicaments and biological substances; Z79.899 Other long term (current) drug therapy; Y90.9 Presence of alcohol in blood, level not specified
CPT/HCPCS: 96374; 99284; J1200; 99283

== ENCOUNTER 2024-07-04 01:06 | Emergency (ER) | payer MEDICAID ==
[2024-07-04 01:14] VITALS: BP 142/107; PULSE 106
[2024-07-04] MEDS: Alum Hydrox/Mag Hydrox/Simeth 15 ML, Lidocaine 2% 5 ML PO ONE (01:40)
[2024-07-04] MEDS: Ondansetron 4 MG Tab PO ONE (01:41)
== END 2024-07-04 02:49 | disposition left against medical advice (07) ==
LOC: MW.ED 01:06
DX: T52.0X1A Toxic effect of petroleum products, accidental (unintentional), initial encounter (principal); I10 Essential (primary) hypertension; J45.909 Unspecified asthma, uncomplicated; F17.210 Nicotine dependence, cigarettes, uncomplicated; Z88.0 Allergy status to penicillin; Z88.8 Allergy status to other drugs, medicaments and biological substances; Z88.2 Allergy status to sulfonamides; Z90.49 Acquired absence of other specified parts of digestive tract
CPT/HCPCS: 99283; A9270

== ENCOUNTER 2024-08-15 11:18 | Emergency (ER) | payer MEDICAID ==
[2024-08-15] MEDS ORDERED: predniSONE 1 MG Tab PO ONE (12:12)
[2024-08-15] MEDS: diphenhydrAMINE 25 MG Cap PO ONE (12:36)
[2024-08-15] MEDS: predniSONE 20 MG Tab PO ONE (12:37)
[2024-08-15 12:44] VITALS: BP 112/76; PULSE 91
== END 2024-08-15 12:44 | disposition home or self-care (01) ==
LOC: MW.ED 11:18
DX: L50.9 Urticaria, unspecified (principal); J45.909 Unspecified asthma, uncomplicated; I10 Essential (primary) hypertension; F17.200 Nicotine dependence, unspecified, uncomplicated; Z90.49 Acquired absence of other specified parts of digestive tract; Z88.0 Allergy status to penicillin; Z88.2 Allergy status to sulfonamides; Z88.8 Allergy status to other drugs, medicaments and biological substances; Z79.899 Other long term (current) drug therapy
CPT/HCPCS: 99283; A9270

== ENCOUNTER 2024-11-02 02:42 | Emergency (ER) | payer MEDICAID ==
[2024-11-02 03:06] VITALS: BP 133/88; PULSE 107
== END 2024-11-02 03:13 | disposition left against medical advice (07) ==
LOC: MW.ED 02:42
DX: R42 Dizziness and giddiness (principal); I10 Essential (primary) hypertension; Z88.2 Allergy status to sulfonamides; Z88.8 Allergy status to other drugs, medicaments and biological substances; Z88.0 Allergy status to penicillin
CPT/HCPCS: 99282; 99283

== ENCOUNTER 2025-02-24 17:05 | Emergency (ER) | payer SELFPAY ==
[2025-02-24] MEDS: SUMAtriptan 6 MG/0.5 ML SDV SUBCUT ONE (17:37)
[2025-02-24 18:25] LABS: BASOPHILS ABSOLUTE AUTO 0.07 K/uL (0.00-0.20); BASOPHILS PERCENT AUTO 1.1 % (0.0-1.0); EOSINOPHILS ABSOLUTE AUTO 0.10 K/uL (0.00-0.45); EOSINOPHILS PERCENT AUTO 1.5 % (0.0-6.0); IMMATURE GRAN ABSOLUTE AUTO 0.01 K/uL (0.00-0.05); IMMATURE GRAN PERCENT AUTO 0.2 % (0.0-0.4); LYMPHOCYTES ABSOLUTE AUTO 2.06 K/uL (1.00-4.80); LYMPHOCYTES PERCENT AUTO 31.3 % (24.0-44.0); MEAN PLATELET VOLUME 9.5 fL (9.4-12.3); MONOCYTES ABSOLUTE AUTO 0.43 K/uL (0.00-0.80); MONOCYTES PERCENT AUTO 6.5 % (0.0-8.0); NEUTROPHILS ABSOLUTE AUTO 3.92 K/uL (1.80-7.70); NEUTROPHILS PERCENT AUTO 59.4 % (41.0-71.0); NRBC ABSOLUTE 0.00 K/uL (0.00-0.02); NRBC PERCENT 0.0 /100WBC (0.0-0.2); PLATELET COUNT,PLT 174 K/uL (150-400); RED BLOOD CELL COUNT 4.96 M/uL (4.10-5.30); WHITE BLOOD CELL COUNT,WBC 6.59 K/uL (3.9-11.3)
[2025-02-24] MEDS: Ketorolac 30 MG/ML SDV IVPUSH ONE (18:28)
[2025-02-24] MEDS: diphenhydrAMINE 50 MG/ML SDV IVPUSH ONE (18:28)
[2025-02-24 19:01] VITALS: BP 161/96; PULSE 75
[2025-02-24 19:19] LABS: A/G RATIO 1.0 (0.9-1.6); ALANINE AMINOTRANSFERASE,ALT 69.0 IU/L (14-63); ASPARTATE AMNIOTRANSFERASE,AST 60.0 IU/L (15-37); BILIRUBIN TOTAL 0.5 mg/dL (0.2-1.0); BLOOD UREA NITROGEN,BUN 12.0 mg/dL (7.0-18.0); CARBON DIOXIDE,CO2 25.8 mmol/L (21.0-32.0); CHLORIDE,CL 103.0 mmol/L (98-107); CREATININE 0.6 mg/dL (0.6-1.0); EST CRCL DRUG DOSING (CG) 116.64 mL/min; GLUCOSE RANDOM 95.0 mg/dL (74-106); POTASSIUM,K 4.2 mmol/L (3.5-5.1); PROTEIN TOTAL,TP 8.1 g/dL (6.4-8.2); SODIUM,NA 138.0 mmol/L (136-145)
[2025-02-24 19:21] LABS: ESTIMATED GFR 119.0 mL/min (>60)
== END 2025-02-24 19:31 | disposition home or self-care (01) ==
LOC: MW.ED 17:05
DX: G43.909 Migraine, unspecified, not intractable, without status migrainosus (principal); I10 Essential (primary) hypertension; J45.909 Unspecified asthma, uncomplicated; Z90.49 Acquired absence of other specified parts of digestive tract; Z88.0 Allergy status to penicillin; Z88.2 Allergy status to sulfonamides; Z88.8 Allergy status to other drugs, medicaments and biological substances
CPT/HCPCS: 36415; 80053; 85025; 96372; 96374; 96375; 99283; A9270; J1200; J1885; J2765; J3030

== ENCOUNTER 2025-02-25 17:47 | Emergency (ER) | payer SELFPAY ==
[2025-02-25] MEDS: diphenhydrAMINE 50 MG/ML SDV IVPUSH ONE (18:10)
[2025-02-25] MEDS: methylPREDNISolone Sodium Succinate 125 MG/2 ML SDV IVPUSH ONE (18:10)
[2025-02-25] MEDS: Prochlorperazine 10 MG/2 ML SDV IVPUSH ONE (20:15)
[2025-02-25] MEDS: Ketorolac 30 MG/ML SDV IVPUSH ONE (20:15)
[2025-02-25 20:33] VITALS: BP 128/78; PULSE 65
== END 2025-02-25 20:32 | disposition home or self-care (01) ==
LOC: MW.ED 17:47
DX: R51.9 Headache, unspecified (principal); T46.1X5A Adverse effect of calcium-channel blockers, initial encounter; I10 Essential (primary) hypertension; J45.909 Unspecified asthma, uncomplicated; F17.200 Nicotine dependence, unspecified, uncomplicated; Z90.49 Acquired absence of other specified parts of digestive tract; Z88.0 Allergy status to penicillin; Z88.2 Allergy status to sulfonamides; Z88.8 Allergy status to other drugs, medicaments and biological substances; Z79.899 Other long term (current) drug therapy; Z75.3 Unavailability and inaccessibility of health-care facilities
CPT/HCPCS: 96374; 96375; 99283; J0780; J1200; J1308; J1885; J2919; J7030

== ENCOUNTER 2025-02-27 21:30 | Emergency (ER) | payer SELFPAY | END 2025-02-27 22:33 | disposition left against medical advice (07) | LOC: MW.ED 21:30 | DX: Z53.21 Procedure and treatment not carried out due to patient leaving prior to being seen by health care provider (principal) ==